=== PATIENT | female | born 1985 | race Caucasian/White ===

== ENCOUNTER 2019-09-05 14:11 | Emergency (ER) | payer BC, MEDICAID, SELFPAY ==
[2019-09-05 14:13] VITALS: BP 141/84; PULSE 104; RESP 16; TEMP 36.9; O2SAT 99; BMI 26.8
--- NOTE | 2019-09-05 14:30 | RAD_ITS ---
STUDY: X-RAY - LUMBAR SPINE REASON FOR EXAM: Female, 33 years old. NO INJURY, PT STATED THAT BACK LOCKED AND NOW IS VERY PAINFUL TECHNIQUE: AP and lateral view(s) of the lumbar spine were obtained. COMPARISON: None FINDINGS: Normal lumbar lordosis. There is no substantial scoliosis. Grade 1 anterior listhesis of L5 on S1 with spondylolysis. Normal vertebral bodies and endplates. Normal disc space heights. The soft tissue structures are unremarkable. RAD/Lumbar Spine 2 or 3 Views IMPRESSION: Grade 1 anterior listhesis of L5 on S1 with spondylolysis. Electronically Signed: Minesh Gonzales, at 15:08 EST , Service support ,
[2019-09-05] MEDS: Morphine 4 MG/ML Syringe IM (14:51)
--- NOTE | 2019-09-05 15:45 | ED.DCSUM_ITS ---
- ER Visit Summary Date of Service: 09/05/19 Chief Complaint: Back pain History of Present Illness: The patient is a 33 F who presents with back pain that began 2 days ago. Patient states she was bending forward and felt something pull in her low back. Patient states the pain is worse with movement and with bending. Patient describes the pain is sharp. Patient denies any radiation of the pain. Patient denies any paresthesias or weakness. Patient denies any bowel or bladder changes. Patient denies any saddle anesthesia. Patient states nothing makes the pain better. Physical Examination: Vital signs are stable. Patient is afebrile. Patient is in no acute distress. Musculoskeletal exam reveals tenderness and spasm of the lumbar paraspinal muscles. There is mild midline tenderness. There is no bony crepitance or step-off. There is no edema or ecchymosis. Range of motion was limited in all motions of the lumbar spine secondary to pain. Strength is 5/5 bilaterally in the lower extremities. There are no sensory deficits noted. Deep tendon reflexes are 2/4 bilaterally in the lower extremities. Test Results: X-rays of the lumbar spine were obtained. There is a grade 1 spondylolisthesis at L5-S1. This was interpreted by the radiologist and myself. Emergency Department Course and Treatment: Patient was given injection of morphine here. Patient was given prescriptions for Naprosyn and Flexeril. Patient was also given a prescription for a short course of Malcolm. Patient was instructed to use ice to the area. Patient was instructed to follow-up with her primary care physician in 5 to 7 days. Patient understood and was agreeable with the plan. All questions were answered. Disposition: Discharge home Impression: Lumbosacral strain This note was generated with [employer] dictation software. It may contain incorrect words, spelling, and punctuation that were not noted in review of the chart prior to signing ED Disposition - Plan for ED Patient: Disposition: Home or Assisted Living Diagnosis: Lumbosacral strain Instructions: Back Sprain/Strain Prescriptions: cycloBENZAPRine HCl [Flexeril] 10 mg PO QHS PRN PRN #10 tab PRN Reason: Muscle Spasm Prescription Printed Naproxen [Naprosyn] 500 mg PO BID PRN #20 tab Prescription Printed Hydrocodone Bitart/Apap 5-325 [Malcolm 5MG-325MG] 1 tab PO Q6H PRN PRN 3 Days #10 tab PRN Reason: Pain Prescription Printed Referrals: Comfort Winslow, HOUSE MOVER SUPERVISOR-C [Primary Care Provider] - 5-7 Days
[2019-09-05 16:19] VITALS: BP 113/84; PULSE 78; RESP 18; O2SAT 98
== END 2019-09-05 16:20 | disposition home or self-care (01) ==
PROVIDERS: Emergency Provider Emergency Medicine; PCP Nurse Practitioner Primary Care
DX: S39.012A Strain of muscle, fascia and tendon of lower back, initial encounter (principal); M43.17 Spondylolisthesis, lumbosacral region; X50.1XXA Overexertion from prolonged static or awkward postures, initial encounter; Y93.9 Activity, unspecified; Y92.9 Unspecified place or not applicable
CPT/HCPCS: 72100; 96372; 99283

== ENCOUNTER → 2020-03-03 | Outpatient (CLI) | payer MEDICAID, SELFPAY ==
[2020-03-03 11:47] VITALS: BMI 26.8
[2020-03-03 14:55] LABS: Amphetamine Urine VISTA NEGATIVE (<1000 ng/mL); Barbiturate Urine VISTA NEGATIVE (< 200 ng/mL); Benzodiazepine Urine VISTA NEGATIVE (< 200 ng/mL); Cocaine Urine VISTA NEGATIVE (< 300 ng/mL); Ecstacy Urine VISTA NEGATIVE (< 500 ng/mL); Methadone Urine VISTA NEGATIVE (< 300 ng/mL); PCP Urine VISTA NEGATIVE (< 25 ng/mL); THC Urine VISTA NEGATIVE (< 50 ng/mL); Vista UDS pH Range 6
[2020-03-05 03:06] LABS: Chlamydia By Nucleic Acid AMP Negative (Negative)
[2020-03-05 04:40] LABS: Gonococcus By Nucleic Acid AMP Negative (Negative)
[2020-03-05 17:41] LABS: HPV APTIMA, High Risk Negative (Negative)
== END | disposition home or self-care (01) ==
LOC: LABSPEC 13:54
PROVIDERS: PCP Nurse Practitioner Primary Care; Referring Provider Obstetrics & Gynecology; Visit Provider Obstetrics & Gynecology
DX: Z34.90 Encounter for supervision of normal pregnancy, unspecified, unspecified trimester (principal); Z12.4 Encounter for screening for malignant neoplasm of cervix
CPT/HCPCS: 80307; 87086; 87088; 87491; 87591; 87624; 88175; G0145

== ENCOUNTER → 2020-05-03 | Outpatient (CLI) | payer MEDICAID, SELFPAY ==
[2020-05-03 11:29] VITALS: BMI 26.8
== END | disposition home or self-care (01) ==
LOC: LABSPEC 12:45
PROVIDERS: PCP Nurse Practitioner Primary Care; Visit Provider Nurse Practitioner Women's Health
DX: O09.90 Supervision of high risk pregnancy, unspecified, unspecified trimester (principal); Z3A.00 Weeks of gestation of pregnancy not specified
CPT/HCPCS: 87086; 87088

== ENCOUNTER → 2020-05-05 12:12 | Outpatient (CLI) | payer MEDICAID, SELFPAY ==
[2020-05-03 11:29] VITALS: BMI 26.8
--- NOTE | 2020-05-05 12:43 | US_ITS ---
STUDY: SECOND AND THIRD TRIMESTER OBSTETRICAL ULTRASOUND - LIMITED REASON FOR EXAM: Female, 34 years old PREVIOUS SPOTTING X 2 DAYS -- NO SPOTTING TODAY -- WELL BEING LMP: 01/04/2020. PRIOR ULTRASOUND: None. TECHNIQUE: Transvaginal TECHNICAL QUALITY: Adequate. FINDINGS: There is a single intrauterine fetus. The fetus is in a breech presentation. There is demonstrated cardiac activity with a heart rate of 158 bpm. There is a normal amniotic fluid volume. The largest amniotic fluid pocket measures 3.1 cm x 4.2 cm. The amniotic fluid index (HALINA) is normal. The placenta is anterior in location and is not low lying. There are Grade 0 placental changes. The cervix measures 3.7 cm in length. BIOMETRY: BPD: 3.81 cm: 70 weeks, 4 days HC: 14.31 cm: 17 weeks, 3 days AC: 12.13 cm: 70 weeks, 5 days FL: 2.47 cm: 70 weeks, 3 days Age by LMP: 17 weeks, 3 days. OMKAR by LMP: 10/11/2019. age by current US: 17 weeks, 3 days. OMKAR by current US: 10/10/2020. Estimated weight: 203 grams, +/- 31 grams, 56 percentile. US/OB Limited With Biometrics IMPRESSION: Single live intrauterine gestation with a mean gestational age of 17 weeks and 3 days Electronically Signed: Minesh Gonzales, at 14:33 EDT , Service support ,
== END ==
PROVIDERS: PCP Nurse Practitioner Primary Care; Referring Provider Nurse Practitioner Women's Health; Visit Provider Nurse Practitioner Women's Health
DX: O20.9 Hemorrhage in early pregnancy, unspecified (principal); Z3A.00 Weeks of gestation of pregnancy not specified
CPT/HCPCS: 76816; 76817

== ENCOUNTER → 2020-05-12 14:43 | Outpatient (CLI) | payer MEDICAID, SELFPAY ==
[2020-05-03 11:29] VITALS: BMI 26.8
[2020-05-12 15:43] LABS: Absolute Lymphocyte Count 2.01 X10^3/uL (0.83-4.51); Absolute Neutrophil Count 7.4 X10^3/uL (2.0-7.7); Basophil# 0.02 X10^3/uL; Basophil% 0.2 % (0-1); Eosinophil# 0.12 X10^3/uL; Eosinophils% 1.2 % (0-5); Hematocrit 38.1 % (37-47); Hemoglobin 12.1 g/dL (12.0-15.0); Lymphocyte # 2.01 X10^3/ul (4.0); Lymphocyte % 19.6 % (19-41); Mean Corp Hgb Conc 31.8 g/dL (32-36); Mean Corpuscular Hgb 31.7 pg (27.0-32.0); Mean Corpuscular Volume 99.7 fL (81-99); Monocyte# 0.67 X10^3/uL; Monocyte% 6.5 % (0-10); NRBC Flagged by Analyzer 0 % (0-5); Neutrophil % 71.9 % (47-70); Platelet Count 398 K/mm3 (150-450); RBC Distribution Width SD 47.2 fl (35.1-43.9); Red Blood Count 3.82 M/mm3 (4.2-5.4); White Blood Count 10.3 K/mm3 (4.4-11.0)
[2020-05-13 03:03] LABS: Rapid Plasmin Reagin (RPR) NONREACTIVE (NONREACTIVE)
[2020-05-13 10:00] LABS: HIV - WCH Non-Reactive (Nonreactive); Hepatitis B Surface Antigen Non-Reactive (Nonreactive); Hepatitis C Antibody Non-Reactive (Nonreactive); Rubella IgG 113.7 IU/mL
== END ==
PROVIDERS: PCP Nurse Practitioner Primary Care; Referring Provider Obstetrics & Gynecology; Visit Provider Obstetrics & Gynecology
DX: Z34.90 Encounter for supervision of normal pregnancy, unspecified, unspecified trimester (principal)
CPT/HCPCS: 36415; 85025; 86592; 86703; 86762; 86803; 86850; 86900; 86901; 87340

== ENCOUNTER → 2020-06-02 13:48 | Outpatient (CLI) | payer MEDICAID, SELFPAY ==
[2020-05-31 10:53] VITALS: BMI 26.4
--- NOTE | 2020-06-02 13:49 | US_ITS ---
STUDY: SECOND AND THIRD TRIMESTER OBSTETRICAL ULTRASOUND REASON FOR EXAM: Female, 34 years old anatomy LMP: 01/04/2020. TECHNIQUE: Transabdominal TECHNICAL QUALITY: Adequate. PRIOR ULTRASOUND: Comparison is made with prior examination dated 05/05/2020. FINDINGS: There is a single intrauterine fetus. The fetus is in a cephalic presentation. There is demonstrated cardiac activity with a heart rate of 147 bpm. There is a normal amniotic fluid volume. The largest amniotic fluid pocket measures 7.5 cm x 4.6 cm. The amniotic fluid index (HALINA) is within normal limits. The placenta is anterior in location and is not low lying. There are Grade 0 placental changes. The cervix measures 3.8 cm in length. The bilateral adnexal regions are normal. BIOMETRY: BPD: 5.16 cm: 21 weeks, 4 days HC: 19.18 cm: 21 weeks, 3 days AC: 17.4 cm: 22 weeks, 2 days FL: 3.61 cm: 21 weeks, 3 days CI: 79% FL/BPD: 70% FL/HC: FL/AC: 21% HC/AC: 1.1 age by current US: 21 weeks, 4 days. OMKAR by current US: 10/09/2020. Estimated weight: 458 grams, +/- 68 grams, 59 %. age by prior US: 21 weeks, 3 days. OMKAR by prior US: 10/10/2020. Age by LMP: 21 weeks, 3 days. OMKAR by LMP: 10/11/1999. ANATOMY: Gender: Male Cranium: Normal lateral ventricles. Normal choroid plexus. Normal cerebellum. Normal cisterna magna. Normal face, nose and lips. Chest: Normal 4-chamber heart. Abdomen/Pelvis: Normal diaphragm. Normal stomach. Normal abdominal wall. Normal cord insertion. Normal 3 vessel cord. Normal kidneys. Normal bladder. Spine: Normal cervical spine. Normal thoracic spine. Normal lumbar spine. Normal sacrum. Extremities: Normal bilateral upper extremities. Normal bilateral lower extremities. US/OB Anatomy Scan IMPRESSION: Single live intrauterine gestation with a mean gestational age of 21 weeks and 3 days. The measurements obtained today fall within the normal expected range. Electronically Signed: Minesh Gonzales, at 15:22 EST , Service support ,
== END ==
PROVIDERS: PCP Nurse Practitioner Primary Care; Referring Provider Nurse Practitioner Women's Health; Visit Provider Nurse Practitioner Women's Health
DX: Z34.90 Encounter for supervision of normal pregnancy, unspecified, unspecified trimester (principal)
CPT/HCPCS: 76805

== ENCOUNTER → 2020-07-26 10:51 | Outpatient (CLI) | payer MEDICAID, SELFPAY ==
[2020-06-28 11:43] VITALS: BMI 26.6
[2020-07-26 11:25] LABS: Absolute Lymphocyte Count 2.01 X10^3/uL (0.83-4.51); Absolute Neutrophil Count 5.7 X10^3/uL (2.0-7.7); Basophil# 0.03 X10^3/uL; Basophil% 0.4 % (0-1); Eosinophil# 0.21 X10^3/uL; Eosinophils% 2.5 % (0-5); Hematocrit 33.5 % (37-47); Hemoglobin 10.8 g/dL (12.0-15.0); Lymphocyte # 2.01 X10^3/ul (4.0); Lymphocyte % 23.5 % (19-41); Mean Corp Hgb Conc 32.2 g/dL (32-36); Mean Corpuscular Hgb 31.3 pg (27.0-32.0); Mean Corpuscular Volume 97.1 fL (81-99); Monocyte# 0.59 X10^3/uL; Monocyte% 6.9 % (0-10); NRBC Flagged by Analyzer 0 % (0-5); Neutrophil # 5.65 X10^3/uL (2.7-7.7); Neutrophil % 65.8 % (47-70); Platelet Count 285 K/mm3 (150-450); RBC Distribution Width CV 13.9 % (11.6-14.6); RBC Distribution Width SD 48.8 fl (35.1-43.9); Red Blood Count 3.45 M/mm3 (4.2-5.4); White Blood Count 8.6 K/mm3 (4.4-11.0)
[2020-07-26 11:51] LABS: Glucose Challenge Gest 1H 50g 96 mg/dL (70-140)
== END ==
PROVIDERS: PCP Nurse Practitioner Primary Care; Referring Provider Obstetrics & Gynecology; Visit Provider Obstetrics & Gynecology
DX: O09.90 Supervision of high risk pregnancy, unspecified, unspecified trimester (principal); Z13.1 Encounter for screening for diabetes mellitus; Z3A.00 Weeks of gestation of pregnancy not specified
CPT/HCPCS: 36415; 82950; 85025

== ENCOUNTER → 2020-09-20 | Outpatient (CLI) | payer MEDICAID, SELFPAY ==
[2020-09-20 11:52] VITALS: BMI 27.4
== END | disposition home or self-care (01) ==
LOC: LABSPEC 16:35
PROVIDERS: PCP Nurse Practitioner Primary Care; Referring Provider Obstetrics & Gynecology; Visit Provider Obstetrics & Gynecology
DX: Z34.90 Encounter for supervision of normal pregnancy, unspecified, unspecified trimester (principal)
CPT/HCPCS: 87081

== ENCOUNTER → 2020-09-28 11:55 | Outpatient (CLI) | payer MEDICAID, SELFPAY ==
[2020-09-27 11:35] VITALS: BMI 27.4
--- NOTE | 2020-09-28 11:58 | US_ITS ---
STUDY: SECOND AND THIRD TRIMESTER OBSTETRICAL ULTRASOUND - LIMITED REASON FOR EXAM: Female, 34 years old uterine date size discrepancy LMP: 01/04/2020 PRIOR ULTRASOUND: 06/02/2020 TECHNIQUE: Transabdominal TECHNICAL QUALITY: Adequate. FINDINGS: There is a single intrauterine fetus. The fetus is in a cephalic presentation. There is demonstrated cardiac activity with a heart rate of 140 bpm. There is a normal amniotic fluid volume. The largest amniotic fluid pocket measures 4.05 cm. The amniotic fluid index (HALINA) is 12.66 cm. The placenta is anterior in location and is not low lying. There are Grade 2 placental changes. The cervix was not measured BIOMETRY: BPD: 9.31 cm: 37 weeks, 6 days HC: 33.79 cm: 38 weeks, 5 days AC: 35.66 cm: 39 weeks, 4 days FL: 7.37 cm: 37 weeks, 4 days Age by LMP: 38 weeks, 2 days. OMKAR by LMP: 10/10/2020. age by prior US: 38 weeks, 3 days. OMKAR by prior US: 10/09/2020. age by current US: 38 weeks, 1 days. OMKAR by current US: 10/11/2020. Estimated weight: 3644 grams, +/- 547 grams, 78.93 percentile. US/OB Limited With Biometrics IMPRESSION: Single live intrauterine at 38 weeks, 1 day by current ultrasound OMKAR of 10/11/2020. Heart rate at 140 bpm. No suspicious sonographic findings, there has been normal growth noted since the previous study. However, the patient did not fill her bladder and the relationship between the placenta tip and the cervix was not able to be evaluated on this study. If this remains a strong clinical concern, recommend repeat study at no charge to the patient with a full bladder Electronically Signed: Memo Rodriguez MD at 16:23 EST , Service support ,
== END ==
PROVIDERS: PCP Nurse Practitioner Primary Care; Referring Provider Obstetrics & Gynecology; Visit Provider Obstetrics & Gynecology
DX: O26.849 Uterine size-date discrepancy, unspecified trimester (principal); Z3A.00 Weeks of gestation of pregnancy not specified
CPT/HCPCS: 76816

== ENCOUNTER 2020-09-29 09:50 | Inpatient (IN) | payer MEDICAID, SELFPAY ==
[2020-09-27 11:35] VITALS: BMI 27.4
[2020-09-29] VITALS (61 sets, daily range): BP systolic 107–184; BP diastolic 56–152; PULSE 90–133; RESP 16; TEMP 36.3–37.3; O2SAT 89–100; BMI 27.4
[2020-09-29] MEDS: Lactated Ringers 1,000 ML 50 ML IV (10:11)
[2020-09-29 10:29] LABS: Absolute Lymphocyte Count 2.07 X10^3/uL (0.83-4.51); Absolute Neutrophil Count 8.8 X10^3/uL (2.0-7.7); Basophil# 0.04 X10^3/uL; Basophil% 0.3 % (0-1); Eosinophil# 0.11 X10^3/uL; Eosinophils% 0.9 % (0-5); Hematocrit 35.1 % (37-47); Hemoglobin 11.3 g/dL (12.0-15.0); Lymphocyte # 2.07 X10^3/ul (4.0); Lymphocyte % 17.1 % (19-41); Mean Corp Hgb Conc 32.2 g/dL (32-36); Mean Corpuscular Volume 90.2 fL (81-99); Monocyte# 0.92 X10^3/uL; Monocyte% 7.6 % (0-10); NRBC Flagged by Analyzer 0 % (0-5); Neutrophil # 8.81 X10^3/uL (2.7-7.7); Neutrophil % 72.7 % (47-70); Platelet Count 274 K/mm3 (150-450); RBC Distribution Width CV 14.2 % (11.6-14.6); Red Blood Count 3.89 M/mm3 (4.2-5.4); White Blood Count 12.1 K/mm3 (4.4-11.0)
--- NOTE | 2020-09-29 17:14 | PCM.HPOB.BLA ---
- Problem List (1) Active labor Status: Acute (2) 37 weeks gestation of Status: Acute Comment: electronic covid test ordered 09/24/20 (scheduled for 10/04/20 at 1340) (3) Anemia affecting Status: Acute Qualifiers: Comment: iron added (4) Anxiety with depression Status: Acute Comment: counseling encouraged. (5) History of maternal fourth degree perineal laceration, currently Status: Acute Comment: vaginal deliveries afterwards. (6) Status: Acute Qualifiers: Comment: genetic, carrier, and ntd screening declined. NL anatomy (7) Supervision of high-risk Status: Acute Qualifiers: Comment: PRR OMKAR 10/10/20 Boy López, Yang Headley, Jose Cruz Avtar (8) Uterine size date discrepancy Status: Acute Comment: growth us ordered History and Physical Date of Admission: 09/29/20 Intake Vital Signs 09/27/20 Height 6 ft 1 in 09/27/20 Weight: 208 lb 09/27/20 BMI 27.4 09/27/20 BP 134/86 H Intake Visit Reasons: 38WK OB Chief Complaint: est ob Supervisor Dairy Sanitation Required: No Is patient in pain?: No Allergies latex Allergy (Verified 09/27/20 11:35) Hives Penicillins Allergy (Verified 09/27/20 11:35) Hives clarithromycin [From Biaxin] Adverse Reaction (Verified 09/27/20 11:35) Other Medications B-complex with vitamin C 1 tab PO DAILY 03/03/20 [History Confirmed 09/27/20] vitamin#30 30 mg iron-10 mg iron-folic acid 1 mg-omg3 capsule cap PO 03/03/20 [History Confirmed 09/27/20] metoclopramide HCl 10 mg tablet 10 mg PO Q6H PRN #60 tab 05/03/20 [Rx Confirmed 09/27/20] cyclobenzaprine 10 mg tablet 10 mg PO TID PRN #30 tab 08/23/20 [Rx Confirmed 09/27/20] Last Menstral Period: 01/04/20 Zika: Zika virus screening: Negative : No PFSH PFSH Medical History Anxiety (Acute) Depression (Acute) Surgical History H/O rotator cuff surgery (Acute) History of wisdom tooth extraction, class II edentulism (Acute) Hx of appendectomy (Acute) Family History Father Diabetes Heart disease Hypertension Hyperlipidemia Social History (Updated 09/27/20 @ 15:[address] 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 Date Name GA/Weeks Outcome Route Bth Weight Infant Gen Labor Lgth Anesthesia Del Locatn Provider FOB Unknown 2009 Earl 40 live - full term 8lbs 6oz Male 18 epidural [facility] Doroteo Unknown 2015 Yang 38 live - full term 8lbs 11oz Male 19 none [facility] Seals Unknown 2018 Devonte 36 live - 6lbs 1oz Male 16 none [facility] Delivery Date: 4th degree perineal laceration Snell,Sonia Delivery Date: induction at 38w large for gestational age, stalled at 8cm Snell,Sonia Delivery Date: PPROM at 36w, transverse Snell,Sonia HPI 38WK OB : Details: MELANIE BLAIR is a 34 year old who presents for routine OB visit. OB Visit OMKAR Calculator Estimated Delivery Date Method Current WG Current Estimate 10/10/20 LMP (Certain) 38w 1d Expected Delivery Route/Plan Labor Preferences- CB/BF classes: [] labor support person: [] labor intervention preferences: [] pain management options preferred: [] cut cord/dad catch: [] : [] PP control planned: [] discussed possible routes of delivery and associated risks: [] special requests: [] Specific Issue/Plans flu vaccine: declined tdap vaccine: considering rhogam: [] LARC form signed: Problem list reviewed and updated with the most current plan of care details and appropriate orders placed. Relevant counseling for the gestational age provided. Continue routine care and follow up unless otherwise noted in visit notes/problem list details Initial Weight: Not Recorded Date EGA Weight BP Urine Prot Glucose FHR FuHt Pres Dilation Effaced St Visit Note 03/03/20 8w 3d 175 SM- CRL 2 cm cons with lmp 04/05/20 13w 1d 197 lb 124/62 160 SM- some spotting no cramping, thinking about flu vaccine 05/03/20 17w 1d 195 lb 2 oz 124/68 Negative Negative 156 MH-spotting off and on, brown in color. No Fm yet. Nausea persists. Zofran not helpful. Needs PN labs-will get today with repeat urine culture. Rx reglan. US this week for bleeding and then anatomy US 19-20wk 05/31/20 21w 1d 200 lb 118/81 Negative Negative 145 SM- no vb lof cramping, fu us scheduled 06/28/20 25w 1d 202 lb 8 oz 138/82 125 GP - no cramping, leaking, bleeding. Having boy #4! Anatomy normal. 07/26/20 29w 1d 204 lb 136/72 Negative Negative 150 29 SM- no vb lof good fm n oregular ctx will wait on 08/23/20 33w 1d 207 lb 110/70 150 33 SM- no vb lof good fm no regular ctx 09/06/20 35w 1d 205 lb 122/76 Negative Negative 150 35 GP - no LOF, VB, DFM, ctx. Doing well 09/20/20 37w 1d 208 lb 124/80 140 35 SM- no vb lof good but decreased fm no reuglar ctx will get nst now and growth us 09/27/20 38w 1d 208 lb 134/86 140 35 Cephalic 4 70 0 SM- no vb lof good fm no reuglar ctx ordered growht us, membranes swept Diagnostics Diagnostics Diagnostics Blood Type A POSITIVE 05/12/20 Antibody Screen NEGATIVE 05/12/20 Glucose 1 Hr 50 gm 96 mg/dL (70-140) 07/26/20 HIV 1&2 Antibody Non-Reactive (Nonreactive) 05/12/20 Rubella IgG Antibody 113.7 IU/mL 05/12/20 Hgb 10.8 g/dL (12.0-15.0) L 07/26/20 Hct 33.5 % (37-47) L 07/26/20 RPR NONREACTIVE (NONREACTIVE) 05/12/20 Details: HIV: Urine Culture: Sequential Screen: NIPT Screen: ROS Const Reports system reviewed and no additional complaints, except as docu Card Reports system reviewed and no additional complaints, except as docu Resp Reports system reviewed and no additional complaints, except as docu GI Reports system reviewed and no additional complaints, except as docu, Reports nausea Reports system reviewed and no additional complaints, except as docu Musc Reports system reviewed and no additional complaints, except as docu Exam Const General: cooperative, healthy appearing, comfortable, anxious HENMT Head: normal to inspection Nose: external nose normal Face and sinus: normal facial exam Neck Neck: normal visual inspection, full ROM, no lymphadenopathy Thyroid: thyroid normal Chest Chest palpation & inspection: normal inspection of the chest Resp Effort & Inspection: normal respiratory effort GI Inspection: normal to inspection Palpation: soft, other (gravid uterus) Other: vertex and appropriate size for gestational age Other: Cervical Exam: Extrem General: pedal edema Assessment & Plan Problems 1. Supervision of high-risk O09.90 PRR OMKAR 10/10/20 JULISSA Garvey Cameron, Jose Cruz Avtar 2. Z34.90 genetic, carrier, and ntd screening declined. NL anatomy 3. Anxiety with depression F41.8 counseling encouraged. 4. History of maternal fourth degree perineal laceration, currently O09.299 vaginal deliveries afterwards. 5. Anemia affecting O99.019 iron added 6. Uterine size date discrepancy O26.849 growth us ordered 7. 37 weeks gestation of Z3A.37 electronic covid test ordered 09/24/20 (scheduled for 10/04/20 at 1340) UPDATE- I have seen the patient and performed any clinically relevant updates to the history and physical exam. Emelyn Knight MD
[2020-09-29] MEDS: Lactated Ringers 500 ML 999 ML IV (17:26)
[2020-09-29] MEDS: Ondansetron 4 MG/2 ML Vial IV (17:52)
--- NOTE | 2020-09-29 18:02 | PCM.OPRPT ---
Problem List (1) Active labor Status: Acute (2) 37 weeks gestation of Status: Acute Comment: electronic covid test ordered 09/24/20 (scheduled for 10/04/20 at 1340) (3) Anemia affecting Status: Acute Qualifiers: Comment: iron added (4) Anxiety with depression Status: Acute Comment: counseling encouraged. (5) History of maternal fourth degree perineal laceration, currently Status: Acute Comment: vaginal deliveries afterwards. (6) Status: Acute Qualifiers: Comment: genetic, carrier, and ntd screening declined. NL anatomy (7) Supervision of high-risk Status: Acute Qualifiers: Comment: PRR OMKAR 10/10/20 Boy López, Yang Headley Dakota Avtar (8) Uterine size date discrepancy Status: Acute Comment: growth us ordered Vaginal Delivery Maternal Presentation: Active Labor 34-year-old at 38 weeks gestation admitted in active labor. Patient made cervical change to complete dilation without augmentation. Amniotic Membrane Rupture Type: Artificial Amniotic Fluid Description: Clear Final OMKAR: 10/10/20 Gestational age: 38 Weeks and 3 Days Date of Procedure: 09/29/20 Pre-Operative Diagnosis: Term , active labor Post-Operative Diagnosis: Same Surgery/ Procedure Performed: Spontaneous Vaginal Delivery Type of Anesthesia: Epidural Description of Procedure: Patient began pushing and delivered the head in the NIA presentation. The head was delivered atraumatically and no nuchal cord was noted. The anterior and posterior shoulders delivered without complication followed by the rest of the and the infant was placed on the maternal abdomen. Delayed cord clamping was employed for approximately 60 seconds. Cord was clamped and cut and gentle traction was applied to the cord and the placenta delivered spontaneously immediately following it was noted to be intact with three-vessel cord. The perineum and vagina were inspected and a midline second-degree perineal laceration was noted and repaired in the standard fashion using 3-0 Vicryl rapide suture. Uterine atony was noted and was treated with Methergine and Hemabate as well as bimanual uterine massage. Following uterotonic's, uterine tone was noted to improve significantly. EBL was 300 cc. Patient and infant tolerated delivery well. Presentation: Vertex, NIA Placental Delivery Description: Spontaneous Placenta Disposition: [facility] Cord Vessel Description: 3 Vessels Cord Entanglement: None Estimated Blood Loss: 300 A gender: Male (1 minute): 8 (5 minute): 3 Episiotomy Description: None Laceration: Midline, Perineal Extension/lac, 2nd degree Medications given after delivery: IV Pitocin Complications: None Multi Select Codes - Urinary/Genital Urinary/Genital CPT Codes: 89638 Vaginal Delivery+ PP Care([facility])
[2020-09-29] MEDS: fentaNYL-bupivacaine (epidural) 100 ML BAG EPIDURAL (18:38)
[2020-09-29] MEDS: Oxytocin 30 units/NS 500 ml 30 UNITS/500 ML IV.SOLN 334 UNITS IV (20:08)
[2020-09-29] MEDS: Methylergonovine 0.2 MG/ML Ampul IM (20:11)
[2020-09-29] MEDS: Carboprost Tromethamine 250 MCG/ML Ampul IM (20:13)
--- NOTE | 2020-09-29 20:28 | DCINST_ITS ---
Discharge Diet: No Restrictions Discharge Activity: Return to Normal Activity, May not drive while taking narcotic pain medications., May Shower May resume sexual activity in: 4-6 weeks Additional Activity Instructions:: Nothing in the vagina for 4-6 weeks. You may return to work/school in 6 weeks. Call your doctor if your incision/area has: Continuous Slow Oozing, Sudden Increased Bleeding, Increased Pain/ Swelling, Increased Redness, Foul Smelling Discharge Additional Instructions: If you experience any of the following, contact your healthcare provider. * Bleeding that soaks a pad every hour for 2 hours * Fever 100.4 or higher * Unrelieved incision or abdominal pain * Swelling, redness, discharge or bleeding from your incision or episiotomy site * Your incision begins to separate * Problems urinating (including inability to urinate or burning while urinating). * Visual changes * Severe headache * Flu-like symptoms * Pain or redness in one of both of your breasts * Pain, warmth, tenderness or swelling in your legs, especially the calf area * Frequent nausea and vomiting * Symptoms of depression or anxiety If you experience any of the following, call 911 or go to the nearest Emergency Room. * Chest pain * Problems breathing * Seizure activity * Partial or complete paralysis of a body part, slurred speech, weakness or drooping of the face, or a sudden inability to walk or hold your balance Allergies/Adverse Reactions: Allergies latex Allergy (Severe, Verified 09/29/20 10:40) Hives Penicillins Allergy (Mild, Verified 09/29/20 10:40) Hives clarithromycin [From Biaxin] Adverse Reaction (Severe, Verified 09/29/20 10:40) Vomiting causes migraines Medications to take at Discharge B-complex with vitamin C 1 tab PO DAILY 03/03/20 vitamin#30 30 mg iron-10 mg iron-folic acid 1 mg-omg3 capsule 1 cap PO DAILY 03/03/20 metoclopramide HCl 10 mg tablet 10 mg PO Q6H PRN #60 tab 05/03/20 Iron Carbonyl [Feosol] 45 mg PO QHS PRN 09/29/20 Naproxen [Naprosyn] 250 - 500 mg PO Q8H PRN PRN #30 tab 09/29/20 The following prescriptions were given: Naproxen [Naprosyn] 250 - 500 mg PO Q8H PRN PRN #30 tab PRN Reason: MILD PAIN Transmission Status: Received by [facility] When: Call to make an appointment with your doctor in 6 weeks. If you had elevated Blood Pressure or 4th degree laceration you will need to be seen in 2 weeks. Primary Care Physician: Comfort Winslow NP, PROPELLANT ASSEMBLER-C [Primary Care Provider] - Test Results: Test results from this visit will be discussed in further detail at your follow- up appointment, if applicable.
[2020-09-29] MEDS: 0.9% Saline Lock 10 ML Syringe IV (22:50)
[2020-09-30 04:00] VITALS: BP 104/59; PULSE 95; RESP 16; TEMP 36.3
[2020-09-30 07:25] VITALS: BP 101/68; PULSE 90; RESP 14; TEMP 36.3
--- NOTE | 2020-09-30 07:28 | PCM.PN.OB ---
Patient Problems: Active and Suspected Problems (Last Reviewed 09/27/20 @ 11:35 by Sonia Snell) Active labor (Acute) 37 weeks gestation of (Acute) electronic covid test ordered 09/24/20 (scheduled for 10/04/20 at 1340) Uterine size date discrepancy (Acute) growth us ordered Anemia affecting (Acute) iron added History of maternal fourth degree perineal laceration, currently (Acute) vaginal deliveries afterwards. Anxiety with depression (Acute) counseling encouraged. (Acute) genetic, carrier, and ntd screening declined. NL anatomy Supervision of high-risk (Acute) PRR OMKAR 10/10/20 Meir López, Yang Headley, Jose Cruz Avtar Subjective: Patient doing well without complaints. Tolerating PO. Ambulating and voiding without difficulty. Breast feeding well. Denies chest pain, shortness of breath, calf pain/swelling, fevers, chills, lightheadedness. - Physical Exam Vitals/I&O's: Vital Signs Temp Pulse Resp BP Pulse Ox 97.4 F L 95 16 104/59 L 98 09/30/20 04:00 09/30/20 04:00 09/30/20 04:00 09/30/20 04:00 09/29/20 23:54 Oxygen Delivery Method Room Air Weight: 208 lb Body Mass Index (BMI) 27.4 Intake and Output for Last 24 Hours 09/28/20 09/29/20 09/30/20 23:59 23:59 23:59 Intake Total 1799.17 / 1799.17 Output Total 200 / 200 Balance 1599.17 / 1599.17 General: Alert, Oriented x3, Cooperative, No apparent distress, Well developed, Well nourished HEENT: Atraumatic, PERRLA, EOMI, Normocephalic Lungs: Normal air movement Cardiovascular: Regular rate Abdomen: Soft, Non Tender, Non-Distended, - - fundus firm Extremities: No edema, No Calf Tenderness Neurological: Cranial nerves II-XII grossly intact, Neuro grossly intact Psych/Mental Status: Normal Affect, Appropriate Microbiology Past 72 Hours 09/29/20 10:00 Mucosa - Nose SARS-CoV-2 Antigen (Rapid) - Final Laboratory Results 09/29/20 10:11: WBC 12.1 H, RBC 3.89 L, Hgb 11.3 L, Hct 35.1 L, MCV 90.2, MCH 29.0, MCHC 32.2, RDW Std Deviation 47.0 H, RDW Coeff of Isatu 14.2, Plt Count 274, MPV 10.0, Immature Gran % (Auto) 1.400 H, Neut % (Auto) 72.7 H, Lymph % (Auto) 17.1 L, [place] % (Auto) 7.6, Eos % (Auto) 0.9, Baso % (Auto) 0.3, Absolute Neuts (auto) 8.8 H, Absolute Lymphs (auto) 2.07, Nucleated RBC % 0 09/29/20 10:11: Blood Type A POSITIVE, Antibody Screen NEGATIVE Current Medications Acetaminophen (Acetaminophen 500 Mg Tablet) 1,000 mg PO Q8H PRN PRN PRN Reason: Pain Score 1-3 Bisacodyl (Bisacodyl 10 Mg Suppository) 10 mg RC UD PRN PRN Reason: If no BM Dibucaine (Dibucaine 30 Gm Tube) 1 applic TOPICAL TID PRN PRN; Protocol PRN Reason: Discomfort Hydrocortisone (Hydrocortisone 2.5% Crm) 1 applic TOPICAL TID PRN PRN; Protocol PRN Reason: Discomfort Methylergonovine Maleate (Methylergonovine 0.2 Mg/Ml Ampul) 0.2 mg IM X1 PRN PRN Reason: Excess bleeding/uterine atony Last Admin: 09/29/20 20:11 Dose: 0.2 mg Documented by: Naproxen (Naproxen 250 Mg Tablet) 500 mg PO Q8H PRN PRN PRN Reason: Pain Score 1-3 Ondansetron HCl (Ondansetron 4 Mg/2 Ml Vial) 4 mg IV Q4H PRN PRN PRN Reason: Nausea Oxycodone HCl (Oxycodone 5 Mg Tablet) 5 - 10 mg PO Q4H PRN PRN PRN Reason: Pain Score 4-10 Senna/Docusate Sodium (Senna/Docusate Sodium 1 Tablet) 1 - 2 tablet PO DAILY PRN PRN PRN Reason: Constipation Simethicone (Simethicone 80 Mg Tablet) 80 mg PO PCHS PRN PRN Reason: Indigestion/Stomach pain Sodium Chloride (0.9% Saline Lock 10 Ml Syringe) 5 - 15 ml IV UD PRN PRN Reason: SALINE FLUSH Last Admin: 09/29/20 22:50 Dose: 10 ml Documented by: Medical Necessity - Tobacco Use Smoking Status: Former smoker Assessment/Plan All Active Problems (Last Reviewed 09/27/20 @ 11:35 by Sonia Snell) Active labor (Acute) 37 weeks gestation of (Acute) Uterine size date discrepancy (Acute) Anemia affecting (Acute) History of maternal fourth degree perineal laceration, currently (Acute) Anxiety with depression (Acute) (Acute) Supervision of high-risk (Acute) Bleeding in early (Resolved) Nausea/vomiting in (Resolved) s/p PPD # 1 1. routine post delivery care 2. breast feeding- support given 3. rh positive 4. rubella immune
--- NOTE | 2020-09-30 07:40 | NURSING ---
pt provided with Lasinoh cream
[2020-09-30 11:55] VITALS: BP 116/57; PULSE 97; RESP 16; TEMP 36.4
[2020-09-30] MEDS: Naproxen 250 MG Tablet 500 MG PO (15:41)
[2020-09-30 15:50] VITALS: BP 108/60; PULSE 96; RESP 14; TEMP 36.6
[2020-09-30 20:50] VITALS: BP 120/68; PULSE 95; RESP 16; TEMP 37.1; O2SAT 96
== END 2020-09-30 22:40 | disposition home or self-care (01) | DRG 560 ==
LOC: WPOUT 10:08 → WP 10:15
PROVIDERS: Admitting Provider Obstetrics & Gynecology; PCP Nurse Practitioner Primary Care; Referring Provider Obstetrics & Gynecology; Visit Provider Obstetrics & Gynecology
DX: O99.02 Anemia complicating childbirth (principal); O99.334 Smoking (tobacco) complicating childbirth; F17.290 Nicotine dependence, other tobacco product, uncomplicated; Z37.0 Single live birth; Z3A.38 38 weeks gestation of pregnancy; O62.2 Other uterine inertia; O70.1 Second degree perineal laceration during delivery; O26.849 Uterine size-date discrepancy, unspecified trimester
CPT/HCPCS: 59025; 59050; 76816; 85025; 86850; 86900; 86901; 87426; 99218; J7120; A4216; G0378; J2405

== ENCOUNTER → 2020-11-08 14:58 | Outpatient (CLI) | payer MEDICAID, SELFPAY ==
[2020-11-08 14:14] VITALS: BMI 27.1
--- NOTE | 2020-11-08 15:00 | VDLE_ITS ---
Reason For Study: Swelling RIGHT GSV is normal. CFV is compressible, spontaneous, phasic, competent and demonstrates normal augmentation. FV is compressible, spontaneous, phasic, competent and demonstrates normal augmentation. POP V is compressible, spontaneous, phasic, competent and demonstrates normal augmentation. T/P Trunk is compressible. PTV is compressible. RT PerV is compressible. Procedure This is a venous duplex using B-mode, color flow and spectral Doppler. Exam performed in department. A preliminary report was called and/or faxed to [place]. VL/Venous Duplex US, Unilateral Interpretation Summary There is no evidence of right lower extremity deep vein thrombosis. Right great saphenous vein appears patent and compressible segmentally. Ordering Physician: Emelyn Knight Performed By: Claudette Parker RVT
== END ==
PROVIDERS: Referring Provider Obstetrics & Gynecology; Visit Provider Obstetrics & Gynecology
DX: M25.471 Effusion, right ankle (principal)
CPT/HCPCS: 93971

== ENCOUNTER → 2021-05-09 | Outpatient (CLI) | payer BC, MEDICAID, SELFPAY | END | disposition home or self-care (01) | LOC: LABSPEC 11:37 | PROVIDERS: Referring Provider Nurse Practitioner Women's Health; Visit Provider Nurse Practitioner Women's Health | DX: R30.0 Dysuria (principal) | CPT/HCPCS: 87077; 87086; 87088; 87186 ==

== ENCOUNTER → 2021-06-02 10:16 | Outpatient (CLI) | payer BC, MEDICAID, SELFPAY ==
--- NOTE | 2021-06-02 10:22 | US_ITS ---
STUDY: RENAL ULTRASOUND - COMPLETE REASON FOR EXAM: Female, 35 years old. UTI,BACK PAIN,URGENCY TECHNIQUE: Ultrasound evaluation of the kidneys was performed with real-time and static aguirre-scale imaging. COMPARISON: None. FINDINGS: RIGHT KIDNEY: Normal location of the right kidney, which is normal in size. The right kidney measures 12 cm x 5.5 cm x 5.9 cm. There is a normal cortex of the right kidney. The renal cortex measures 1.8 cm. There is no right renal mass or cyst. There are no right renal calculi. There is no right hydronephrosis. DISTAL RIGHT URETER: There is non-visualization of the distal right ureter. There is no demonstrated right ureterovesical junction calculus. There is a visualized right ureteral jet. LEFT KIDNEY: Normal location of the left kidney, which is normal in size. The left kidney measures 11.4 cm x 4.5 cm x 5.8 cm. There is a normal cortex of the left kidney. The renal cortex measures 1.8 cm. There is no left renal mass or cyst. There are no left renal calculi. There is no left hydronephrosis. DISTAL LEFT URETER: There is non-visualization of the distal left ureter. There is no demonstrated left ureterovesical junction calculus. There is a visualized left ureteral jet. BLADDER: The distended urinary bladder has a volume of 211 ml. The empty urinary bladder has a volume of 29 ml. There is a normal wall thickness of the distended urinary bladder. There is no demonstrated mass within the urinary bladder. There are no demonstrated bladder calculi. US/Kidney and Bladder IMPRESSION: Normal ultrasound of the kidneys and urinary bladder. Electronically Signed: Minesh Gonzales MD at 14:32 EST , Service support ,
== END ==
PROVIDERS: Referring Provider Urology; Visit Provider Urology
DX: N39.0 Urinary tract infection, site not specified (principal); M54.50 Low back pain, unspecified; R39.15 Urgency of urination
CPT/HCPCS: 76770

== ENCOUNTER 2021-07-05 04:42 | Emergency (ER) | payer BC, MEDICAID, SELFPAY ==
[2021-07-05 04:43] VITALS: BP 133/83; PULSE 102; RESP 18; TEMP 36.9; O2SAT 97; BMI 25.4
[2021-07-05 04:47] VITALS: BP 126/78; PULSE 106; RESP 18; TEMP 36.9; O2SAT 99
--- NOTE | 2021-07-05 04:49 | RAD_ITS ---
STUDY: X-RAY CHEST REASON FOR EXAM: Female, 35 years old. Chest pain TECHNIQUE: Single AP portable view x2 of the chest. COMPARISON: February 28, 2017 chest x-ray FINDINGS: There is stable hyperinflation of the lungs. No visualized focal infiltrate. There is no demonstrated pleural abnormality. Normal size heart. Normal mediastinum and jose. Normal visualized pulmonary arteries. Normal visualized aortic arch and descending thoracic aorta. There are diffuse degenerative changes of the visualized thoracic spine. Normal visualized ribs, clavicles, and shoulders. There is no demonstrated abnormality of the visualized soft tissue structures of the upper abdomen. RAD/Chest 1 View (Portable) IMPRESSION: Hyperinflation of the lungs no visualized focal infiltrate. Electronically Signed: Yi Collazo MD at 5:34 EST Tel , Service support ,
--- NOTE | 2021-07-05 04:49 | EKG12_ITS ---
Test Reason : CP Blood Pressure : / mmHG Vent. Rate : 093 BPM Atrial Rate : 093 BPM P-R Int : 144 ms QRS Dur : 090 ms QT Int : 366 ms P-R-T Axes : 065 028 058 degrees QTc Int : 455 ms Normal sinus rhythm Normal ECG Confirmed by HARJEET BARKER, BEAR ([id number]), purchasing expeditor RENATO GALEANA ([id number]) on 07/06/2021 12:16:02 PM Referred By: PEMA Confirmed By:BEAR COSBY MD
[2021-07-05 05:00] LABS: Absolute Lymphocyte Count 3.01 X10^3/uL (0.83-4.51); Absolute Neutrophil Count 4.6 X10^3/uL (2.0-7.7); Basophil# 0.02 X10^3/uL; Basophil% 0.2 % (0-1); Eosinophil# 0.11 X10^3/uL; Eosinophils% 1.3 % (0-5); Hematocrit 32.2 % (37-47); Hemoglobin 9.8 g/dL (12.0-15.0); Lymphocyte # 3.01 X10^3/ul (0.83-4.51); Lymphocyte % 35.6 % (19-41); Mean Corp Hgb Conc 30.4 g/dL (32-36); Mean Corpuscular Hgb 29.3 pg (27.0-32.0); Mean Corpuscular Volume 96.1 fL (81-99); Mean Platelet Vol. 8.4 fl (6.2-12.0); Monocyte# 0.67 X10^3/uL; Monocyte% 7.9 % (0-10); NRBC Flagged by Analyzer 0 % (0-5); Neutrophil # 4.62 X10^3/uL (2.7-7.7); Neutrophil % 54.6 % (47-70); POSITIVE MORPHOLOGY YES; Platelet Count 440 K/mm3 (150-450); RBC Distribution Width CV 18.9 % (11.6-14.6); RBC Distribution Width SD 66.5 fl (35.1-43.9); Red Blood Count 3.35 M/mm3 (4.2-5.4); White Blood Count 8.5 K/mm3 (4.4-11.0)
[2021-07-05 05:17] LABS: Differential Indicated SCAN CRITERIA MET
[2021-07-05 05:19] LABS: Anisocytosis 3+
[2021-07-05 05:21] VITALS: BP 111/87; PULSE 90; RESP 16; O2SAT 98
[2021-07-05] MEDS: Ondansetron 4 MG/2 ML Vial IV (05:21)
--- NOTE | 2021-07-05 05:23 | ED.VIS.CHEST ---
HPI History of Present Illness Chief Complaint: Chest Pain Narrative Narrative: 35-year-old female presenting for nausea/vomiting. She states that he vomited twice over night. She denies fever, chills, shortness of breath. Patient is on day 10 of Covid and not having any respiratory symptoms other than she developed some burning in her chest earlier this evening and then had episodes of vomiting. She describes it as burning and center of her chest which radiates outward. She does not have abdominal pain. Patient does state that she has chronic dysuria and recurrent UTIs for which she is currently being treated for with Augmentin. She sees currently for this and has had ultrasounds of her kidneys, ureters, bladder. She is scheduled for CAT scan tomorrow without contrast. PFSH PFSH Medical History Anxiety Asthma Depression Home Medications B-complex with vitamin C 1 tab PO DAILY 03/03/20 [History Last Taken 09/28/20 21:00] vitamin#30 30 mg iron-10 mg iron-folic acid 1 mg-omg3 capsule 1 cap PO DAILY 03/03/20 [History Last Taken 09/28/20 20:00] iron, carbonyl 45 mg PO QHS PRN 09/29/20 [History Last Taken 09/28/20 21:00] Allergy/AdvReac Type Severity Reaction Status Date / Time latex Allergy Severe Hives Verified 07/05/21 04:48 Penicillins Allergy Mild Hives Verified 07/05/21 04:48 Sulfa (Sulfonamide Allergy Fever and Verified 07/05/21 04:48 Antibiotics) skin rash clarithromycin [From Biaxin] AdvReac Severe Vomiting Verified 07/05/21 04:48 Family History Father Diabetes Heart disease Hypertension Hyperlipidemia Surgical History H/O rotator cuff surgery History of wisdom tooth extraction, class II edentulism Hx of appendectomy Social History Smoking Status: Current every day smoker tobacco type: e-cigarettes Electronic Cigarette Use: with nicotine alcohol intake: never do you feel safe at home: Yes 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[employer], 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[employer] ROS ROS ED Constitutional Constitutional ED: Denies fever(s) Eyes Eyes: Denies none ENT ENT ED: Denies rhinorrhea or sore throat Cardiovascular Cardiovascular: Reports as per HPI Respiratory/Chest Respiratory/Chest: Denies cough or dyspnea Gastrointestinal Gastrointestinal: Reports nausea and vomiting; Denies abdominal pain Genitourinary Genitourinary ED: Reports dysuria and urinary frequency Musculoskeletal Musculoskeletal: Denies arthralgias or myalgias Integumentary Denies abscess or rash Neurologic Neurologic: Denies headache(s) or weakness Psychiatric Psychiatric: Denies anxiety or depression EXAM Physical Exam Const Vital Signs: 07/05/21 04:43 07/05/21 04:47 07/05/21 04:52 Temperature 98.4 F 98.4 F Temperature Source Oral Oral Pulse Rate 102 H 106 H Respiratory Rate 18 18 Respiratory Effort Normal Non-Labored Respiratory Pattern Normal Blood Pressure 133/83 H 126/78 H Blood Pressure Mean 99 94 Pulse Ox 97 99 Oxygen Delivery Method Room Air Room Air Room Air 07/05/21 05:21 07/05/21 05:50 07/05/21 06:20 Temperature 97.0 F L Temperature Source Temporal Pulse Rate 90 84 75 Respiratory Rate 16 16 16 Respiratory Effort Respiratory Pattern Blood Pressure 111/87 H 122/83 H 119/76 Blood Pressure Mean 95 96 90 Pulse Ox 98 100 100 Oxygen Delivery Method Room Air Room Air Room Air Positive well nourished General Appearance ED: NAD; Negative for pallor HEENT Reports moist mucous membranes normocephalic and atraumatic Eyes PERRL and EOMs intact bilaterally Chest Wall inspection of chest normal and palpation of chest normal Resp normal respiratory effort Effort and Inspection: respiratory distress Cardio regular rate and regular rhythm GI normal to inspection, nondistended, normoactive bowel sounds Back/Spine no CVA tenderness Neuro oriented x3 Sensorium / Orientation: awake and alert Psych mental status grossly normal Skin General Skin Exam: Negative for jaundice or pallor Heart Score History: Slightly/Non-Suspicious ECG: Normal Age: </= 45 years Risk Factors: No Risk Factors Troponin: </= Normal Limit Score: 0 MDM MDM MDM Narrative Medical decision making narrative: Patient presenting with burning in her chest and vomiting x2. Patient states that this started earlier this morning. EKG performed on my interpretation shows a normal sinus rhythm with a ventricular rate of 93 bpm without ischemic changes or signs of dysrhythmia. Will obtain cardiac work-up. Patient does not have any cardiac risk factors. No history of DVT/PE. Currently on day 10 of Covid but not having chest pressure or pleuritic chest pain. She only describes this as burning. She does not have a fever. Patient does state that she has recurrent UTIs. I did look into her work-up and apparently when she is on antibiotics her symptoms improve and then a couple of days after she is off of antibiotics she developed an infection again which has been going on for months. Patient is currently on Augmentin and is following with urology for this. She is scheduled to have a CT scan of the abdomen and pelvis tomorrow which I do not believe is necessary related to her symptoms today. She is not having any abdominal pain or flank pain. CBC does not show any leukocytosis. Hemoglobin is slightly low at 9.8 patient has a history of anemia. Platelets are normal. Renal function electrolytes are normal with exception of a potassium of 3.4. High-sensitivity troponin is less than 3 and states she has been having this burning all night I believe she rules out for cardiac. It does not sound cardiac in nature. Chest x-ray on my interpretation shows no acute cardiopulmonary process and the radiologist does agree. Although patient recently had Covid, her chest pain does not sound pleuritic or cardiac in nature. She describes burning as well as nausea and vomiting. Patient was given Zofran and she had improvement in her symptoms. I do not believe she needs a D-dimer or CTA of the chest. On reevaluation her heart rate is 75 bpm, respirate of 16, pulse ox 100% on room air, blood pressure 119/76. Discussed all findings with the patient. She will follow-up outpatient for the CT of the abdomen pelvis tomorrow for urology. Impression: 1. Chest pain noncardiac Lab Data Labs: Laboratory Results - last 24 hr 07/05/21 07/05/21 04:50 04:50 WBC 8.5 RBC 3.35 L Hgb 9.8 L Hct 32.2 L MCV 96.1 MCH 29.3 MCHC 30.4 L RDW Std Deviation 66.5 H RDW Coeff of Isatu 18.9 H Plt Count 440 MPV 8.4 Immature Gran % (Auto) 0.400 Neut % (Auto) 54.6 Lymph % (Auto) 35.6 [place] % (Auto) 7.9 Eos % (Auto) 1.3 Baso % (Auto) 0.2 Absolute Neuts (auto) 4.6 Absolute Lymphs (auto) 3.01 Nucleated RBC % 0 Anisocytosis 3+ Sodium 138 Potassium 3.4 L Chloride 104 Carbon Dioxide 27.0 Anion Gap 7 BUN 18 Creatinine 0.74 Estim Creat Clear Calc 127.51 Est GFR (MDRD) Af Amer 115 Est GFR (MDRD) Non-Af 95 BUN/Creatinine Ratio 24.3 H Glucose 123 H Calcium 9.2 Troponin I High Sens < 3 L Radiography Diagnostic Testing: Clinical Impression(s) from Imaging Studies Chest X-Ray 07/05/21 04:49 IMPRESSION: Hyperinflation of the lungs no visualized focal infiltrate. Electronically Signed: Yi Collazo MD at 5:34 EST Tel , Service support , Discharge Plan Triage Chief Complaint: Chest Pain ED Provider: Ric Sagastume Dx/Rx/DC Orders Instructions: ED Chest Pain, Noncardiac, ED Vomiting (Adult) Prescriptions: No Action vitamin#30 30 mg iron-10 mg iron-folic acid 1 mg-omg3 capsule 30 mg iron-10 mg iron-1 mg capsule 1 cap PO DAILY RF: 0 B-complex with vitamin C [Super B Complex-Vitamin C] Tablet 1 tab PO DAILY RF: 0 iron, carbonyl 45 MG capsule 45 mg PO QHS PRN RF: 0 Primary Care Provider: Care Physician,No Primary Referrals: Care Physician,No Primary [Primary Care Provider] - Disposition Disposition: Home, Self Care Discharge Date/Time: 07/05/21 06:20
[2021-07-05 05:29] LABS: Anion Gap 7 (5-15); BUN 18 mg/dL (7-18); BUN/Creat Ratio 24.3 RATIO (10-20); Calcium,Total 9.2 mg/dL (8.5-10.1); Chloride 104 mmol/L (98-107); Creatinine, Serum 0.74 mg/dL (0.55-1.02); EST Glomerular Filtration Rate 95 mL/min (>60); Est Glom Filt Rate - Afr Amer 115 mL/min (>60); Estimated Creatinine Clearance 127.51 ml/min; Glucose 123 mg/dL (74-106); Potassium 3.4 mmol/L (3.5-5.1); Sodium Level 138 mmol/L (136-145); Troponin-I HS < 3 pg/mL (3.0-54.0)
[2021-07-05 05:50] VITALS: BP 122/83; PULSE 84; RESP 16; TEMP 36.1; O2SAT 100
[2021-07-05 06:20] VITALS: BP 119/76; PULSE 75; RESP 16; O2SAT 100
== END 2021-07-05 06:20 | disposition home or self-care (01) ==
PROVIDERS: Emergency Provider Student in an Organized Health Care Education/Training Program
DX: R07.89 Other chest pain (principal); R11.2 Nausea with vomiting, unspecified; D64.9 Anemia, unspecified; J45.909 Unspecified asthma, uncomplicated; Z87.440 Personal history of urinary (tract) infections; F17.290 Nicotine dependence, other tobacco product, uncomplicated
CPT/HCPCS: 71045; 80048; 84484; 85025; 93005; 96374; 99284; A4216; J2405

== ENCOUNTER → 2021-07-06 16:40 | Outpatient (CLI) | payer BC, MEDICAID, SELFPAY ==
--- NOTE | 2021-07-06 16:45 | CT_ITS ---
STUDY: CT ABDOMEN AND PELVIS WITHOUT CONTRAST REASON FOR EXAM: Female, 35 years old. Flank pain and frequency RADIATION DOSAGE (If Supplied By Facility): CTDIvol = ( 11.22 ) mGy, DLP = ( 538.30 ) mGycm TECHNIQUE: Transaxial images were obtained from the dome of the diaphragm to the symphysis pubis without oral contrast, and without intravenous contrast. Sagittal and coronal images were reconstructed. Individualized dose optimization techniques were used for this CT. COMPARISON: None. FINDINGS: The visualized lung bases are unremarkable. The visualized portions of the heart are within normal limits. Normal liver. Normal gallbladder and extrahepatic biliary system. Normal spleen. Normal pancreas. Normal bilateral adrenal glands. No obstructive uropathy or suspicious solid renal lesion, there is a punctate nonobstructing left renal stone. Normal visualized stomach. Normal small intestine. Retained stool noted throughout the colon There are surgical clips in the region of the appendix consistent with a prior appendectomy. Normal abdominal aorta. Normal inferior vena cava. Normal retroperitoneum. Normal urinary bladder. The uterus contains an IUD Normal abdominal wall. Normal osseous structures. CT/Abdomen/Pelvis without Cont IMPRESSION: No suspicious solid organ abnormality, specifically, no obstructive uropathy, there is a nonobstructing punctate left renal stone. Retained stool in the colon No free intraperitoneal fluid, air, or suspicious adenopathy Evidence of previous appendectomy IUD in the uterus Electronically Signed: Memo Rodriguez MD at 17:07 EST , Service support ,
== END ==
PROVIDERS: Referring Provider Urology; Visit Provider Urology
DX: N39.0 Urinary tract infection, site not specified (principal); M54.50 Low back pain, unspecified; R39.15 Urgency of urination
CPT/HCPCS: 74176

== ENCOUNTER 2021-09-19 05:52 | Day surgery (SDC) | payer BC, MEDICAID, SELFPAY ==
[2021-09-19] VITALS (7 sets, daily range): BP systolic 102–119; BP diastolic 64–75; PULSE 70–91; RESP 14–16; TEMP 36.2–37.4; O2SAT 97–100; BMI 25.9
[2021-09-19 06:22] LABS: Internal QC Validated? YES +Cl - CLEAR BKGD; Pregnancy, Urine Negative Negative
[2021-09-19] MEDS: Lactated Ringers 1,000 ML 15 ML IV (06:51)
--- NOTE | 2021-09-19 07:25 | PCM.OPRPT ---
Problems Associated Problem List Diagnoses (1) Urinary tract infection: (2) Urgency of micturition: (3) Frequency of micturition: Report of Operation Date of Procedure: 09/19/21 Pre-Operative Diagnosis: Recurrent urinary tract infections, urgency of urination, frequency of urination, nocturia Post-Operative Diagnosis: Same Surgery/Procedure Performed:: Pelvic exam under anesthesia, cystoscopy Surgeon: Stephanie Somers Type of Anesthesia: MAC Description of Procedure: The patient is a 35-year-old female with a history of recurrent urinary tract infections to presents for evaluation under anesthesia secondary to her anxiety and inability to tolerate it in the office. Informed consent was obtained. The patient was taken to the operating room and placed on the operating room table. Anesthesia monitored the head, neck, airway, IV access and vital signs throughout the case. Once anesthesia was appropriately administered, the patient was placed into dorsal lithotomy position was prepped and draped in usual sterile fashion. Pelvic examination revealed minimal to no perineal body support with a rectocele, uterine prolapse and a small cystocele. The cystoscope was then inserted through the urethra under direct visualization into the urinary bladder. The urethral and bladder mucosa was visualized in its entirety and found to be without evidence of mass, erythema, ulceration or foreign body. Of note the ureteral orifices are very medial in placement on the area of the trigone. At this time the patient's bladder was emptied and the case was terminated. The patient was awakened and taken to the recovery room in good condition. There were no complications during this procedure. Grafts/Implants Used: None Complications None Admit VTE Documentation VTE Present on Admission: Yes VTE Mechan Device Prophylaxis: SCD's VTE Pharm Prophylaxis ordered?: No Reason prophylaxis not ordered:: Treatment Not Indicated
--- NOTE | 2021-09-19 07:29 | PCM.DC ---
Discharge Instructions Diet Discharge Diet: No restrictions Activity Discharge Activity: Return to Normal Activity Dressing / Incision Call your doctor if you observe: Fever of 101 or Higher, Inability to urinate and Inability to have a bowel movement Follow Up Care Please Follow Up With: Stephanie Somers MD When: in the office in 2-3 weeks, call for appt Test Results: Test results from this visit will be discussed in further detail at your follow-up appointment, if applicable. Discharge Plan Admission Attending Provider: Stephanie Somers Primary Care Provider: Care PhysicianMarii Primary Discharge Orders/Prescriptions Prescriptions: Continued vitamin#30 30 mg iron-10 mg iron-folic acid 1 mg-omg3 capsule 30 mg iron-10 mg iron-1 mg capsule 1 cap PO DAILY RF: 0 B-complex with vitamin C [Super B Complex-Vitamin C] Tablet 1 tab PO DAILY RF: 0 cranberry 500 mg Capsule 500 mg PO BID RF: 0 Probiotic 3 billion cell Capsule 3,000 mmu cells PO DAILY RF: 0 albuterol (refill) 90 mcg/actuation Aerosol 90 mcg INHALATION PRN PRN (Reason: ASTHMA) RF: 0 ferrous sulfate [iron] 325 mg (65 mg iron) Tablet 325 mg PO DAILY RF: 0 methen-sod phos-meth blue-hyos [Urogesic-Blue] 81.6-40.8-0.12 mg tablet 1 tab PO 4X/DAY PRN PRN (Reason: UTI) RF: 0 Referrals / Follow Up: Care Physician,No Primary [Primary Care Provider] - Disposition Disposition (needs filled in before D/C Order can be placed): Home, Self Care
== END 2021-09-19 23:59 | disposition home or self-care (01) ==
LOC: SDC 05:53 → AC 05:54
PROVIDERS: Anesthesiology; Referring Provider Urology; Visit Provider Urology
PROC: 0TJB8ZZ Inspection of Bladder, Via Natural or Artificial Opening Endoscopic (ICD-10-PCS; CPT 57410; principal; 2021-09-19 07:20)
DX: N39.0 Urinary tract infection, site not specified (principal); J45.909 Unspecified asthma, uncomplicated; D64.9 Anemia, unspecified; Z86.16 Personal history of COVID-19
CPT/HCPCS: 52000; 00910; 81025; J7120; J2405

== ENCOUNTER 2021-10-01 09:19 | Emergency (ER) | payer BC, MEDICAID, SELFPAY ==
[2021-10-01 09:19] VITALS: BP 149/101; PULSE 96; RESP 16; TEMP 36.4; O2SAT 100; BMI 27.0
--- NOTE | 2021-10-01 09:40 | EDS_ITS ---
HPI HPI - Female History of Present Illness Chief Complaint: Female C/O Detail of Chief Complaint: Concerned IUD is not in proper position, cramping and vaginal bleeding Informant: patient Pain Onset: Hours Context: Sudden Onset Timing: Continuous Quality: Positive for Cramping Current Severity: Mild Maximum Severity: Severe Worsened by: [place] Bleeding Issue: Positive for Vaginal bleeding Onset: Hours Context: Sudden Onset Timing: Continuous Current Severity: Mild Associated Symptoms Sexually: Positive for Active Narrative Narrative: Patient presents because of cramping, vaginal bleeding and concerned that the IUD is not in proper position. Symptoms started during intercourse. She had the IUD placed April 2021. She has an appointment this coming October 04 to have the IUD removed. Patient no longer has cramping. She has minimal bleeding/spotting. She has not had a menstrual cycle since the IUD was placed. She denies nausea, vomiting or diarrhea. She denies dysuria, frequency, urgency or hematuria. She has had no problems prior to today with regards to the IUD. Prior similar symptoms: No Recent Illness/Hospitalization: No [facility] Medical History Alcohol use Anemia Anxiety Asthma Back pain Chest pain Encounter for insertion of mirena IUD Frequency of micturition History of COVID-19 History of edema Hypertension Leg cramps Restless legs Smoker Syncope Urgency of micturition Urinary tract infection Wears glasses Home Medications B-complex with vitamin C 1 tab PO DAILY 03/03/20 [History Last Taken 09/18/21] vitamin#30 30 mg iron-10 mg iron-folic acid 1 mg-omg3 capsule 1 cap PO DAILY 03/03/20 [History Last Taken 09/18/21] Probiotic 3,000 mmu cells PO DAILY 09/12/21 [History Last Taken 09/18/21] albuterol (refill) 90 mcg INHALATION PRN PRN 09/12/21 [History Last Taken 09/18/21] cranberry 500 mg PO BID 09/12/21 [History Last Taken 09/18/21] ferrous sulfate [iron] 325 mg PO DAILY 09/12/21 [History Last Taken 09/18/21] methen-sod phos-meth blue-hyos [Urogesic-Blue] 1 tab PO 4X/DAY PRN PRN 09/19/21 [History Last Taken 09/18/21] Allergy/AdvReac Type Severity Reaction Status Date / Time latex Allergy Severe Hives Verified 10/01/21 09:22 coconut Allergy Mild Rash Verified 10/01/21 09:22 Penicillins Allergy Mild Hives Verified 10/01/21 09:22 Sulfa (Sulfonamide Allergy Fever and Verified 10/01/21 09:22 Antibiotics) skin rash clarithromycin [From Biaxin] AdvReac Severe Vomiting Verified 10/01/21 09:22 Family History Father Diabetes Heart disease Hypertension Hyperlipidemia Surgical History H/O rotator cuff surgery History of wisdom tooth extraction, class II edentulism Hx of appendectomy Social History (Updated 10/01/21 @ 09:[address] 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[employer] [facility] ROS ED Constitutional Constitutional ED: Denies chills, fever(s), subjective or sweats Cardiovascular Cardiovascular: Denies chest pain or palpitations Respiratory/Chest Respiratory/Chest: Denies dyspnea Gastrointestinal Gastrointestinal: Denies abdominal pain, diarrhea, nausea or vomiting Genitourinary Genitourinary ED: Reports vaginal bleeding; Denies dysuria, hematuria, urinary frequency or vaginal discharge Musculoskeletal Musculoskeletal: Denies arthralgias or myalgias Integumentary Denies Abrasions or rash Psychiatric Psychiatric: Reports anxiety Hematologic/Lymphatic Hematologic/Lymphatic: Reports anemia; Denies easy bleeding or easy bruising EXAM Physical Exam Const Vital Signs: 10/01/21 09:19 Temperature 97.6 F L Temperature Source Temporal Pulse Rate 96 Respiratory Rate 16 Blood Pressure 149/101 H Blood Pressure Mean 117 Pulse Ox 100 Oxygen Delivery Method Room Air Positive well nourished and well developed General Appearance ED: well developed and NAD; Negative for pallor HEENT Reports moist mucous membranes HEENT Narrative: Nares patent. Ears normal. Negative for trauma or tenderness Eyes PERRL and EOMs intact bilaterally General Eye ED: Negative for pale conjunctiva Neck supple Resp normal respiratory effort and clear to auscultation bilaterally Cardio regular rate, regular rhythm, S1 normal heart sound, no murmurs and no JVD GI normal to inspection, nondistended, normoactive bowel sounds, soft to palpation and non-tender External Female Exam: normal appearance of the urethra Speculum Exam - Vagina: vaginal bleeding scant; Negative for vaginal erythema, vaginal laceration, vaginal lesion, tissue present in vagina, vaginal mass, vaginal swelling, vaginal tenderness, vaginal discharge or vaginal ecchymosis Speculum Exam - Cervix: cervical os closed, cervical bleeding and other IUD string noted. The distal portion of the ID is protruding from the cervix. The IUD was removed without difficulty. ; Negative for cervical lesion, cervical laceration or cervical tenderness Back/Spine no CVA tenderness Lumbar Spine / Lower Back: Negative for lumbar spinal tenderness Neuro oriented x3 and CN's II-XII intact bilaterally Sensorium / Orientation: alert Psych Mood & Affect: anxious Skin no rashes or lesions noted and no wounds General Skin Exam: Negative for jaundice or pallor MDM MDM MDM Narrative Medical decision making narrative: Plan pelvic exam to determine source of bleeding. Patient requesting the IUD be removed. Since she scheduled to have it removed on Sunday if string is visible will remove IUD. Since the IUD was displaced and plan was to have it removed on Sunday the IUD was removed at the time of examination. Discharge Plan Triage Chief Complaint: Female C/O ED Provider: Olman Alvarez Dx/Rx/DC Orders Clinical Impression: Vaginal bleeding, Remove/insert IUD Instructions: Understanding Uterine Bleeding Prescriptions: No Action vitamin#30 30 mg iron-10 mg iron-folic acid 1 mg-omg3 capsule 30 mg iron-10 mg iron-1 mg capsule 1 cap PO DAILY RF: 0 B-complex with vitamin C [Super B Complex-Vitamin C] Tablet 1 tab PO DAILY RF: 0 cranberry 500 mg Capsule 500 mg PO BID RF: 0 Probiotic 3 billion cell Capsule 3,000 mmu cells PO DAILY RF: 0 albuterol (refill) 90 mcg/actuation Aerosol 90 mcg INHALATION PRN PRN (Reason: ASTHMA) RF: 0 ferrous sulfate [iron] 325 mg (65 mg iron) Tablet 325 mg PO DAILY RF: 0 methen-sod phos-meth blue-hyos [Urogesic-Blue] 81.6-40.8-0.12 mg tablet 1 tab PO 4X/DAY PRN PRN (Reason: UTI) RF: 0 Primary Care Provider: Care Physician,No Primary Referrals: Carolina Goins MD [STAFF PHYSICIAN] - Keep [facility] appointment Care Physician,No Primary [Primary Care Provider] - Disposition Disposition: Home, Self Care
== END 2021-10-01 10:14 | disposition home or self-care (01) ==
PROVIDERS: Emergency Provider Emergency Medicine; Visit Provider Emergency Medicine
DX: N93.9 Abnormal uterine and vaginal bleeding, unspecified (principal); Z30.430 Encounter for insertion of intrauterine contraceptive device; F17.290 Nicotine dependence, other tobacco product, uncomplicated; I10 Essential (primary) hypertension; F41.9 Anxiety disorder, unspecified; Z86.16 Personal history of COVID-19; J45.909 Unspecified asthma, uncomplicated; Z87.440 Personal history of urinary (tract) infections; Z79.899 Other long term (current) drug therapy; D64.9 Anemia, unspecified
CPT/HCPCS: 99282

== ENCOUNTER → 2021-12-06 | Outpatient (CLI) | payer BC, MEDICAID, SELFPAY ==
--- NOTE | 2021-12-06 09:07 | US_ITS ---
STUDY: FIRST TRIMESTER OBSTETRICAL ULTRASOUND REASON FOR EXAM: Female, 35 years old rule out ectopic -- THREATENED AB, R/O ECTOPIC -- SPOTTING -- LEFT PELVIC PAIN -- LMP 10/27/21 -2 DAY PERIOD LMP: 10/27/2021. TECHNIQUE: Transvaginal TECHNICAL QUALITY: Adequate. PRIOR ULTRASOUND: None. FINDINGS: There is no demonstrated intrauterine gestational sac. There is no demonstrated yolk sac. The placenta is non-visualized. There is no demonstrated embryo ( pole). The estimated gestation age (EGA) by LMP is 5 weeks, 5 days. The estimated date of delivery (OMKAR) by LMP is 04/03/2023. The uterus measures 9.1 cm x 7.1 cm x 5.9 cm. There is no demonstrated uterine fibroid. The cervix is closed. The endometrium is thickened measuring up to 2.2 cm. 4 mm x 4 mm x 2 mm cyst is seen in the subendometrial region. No intrauterine gestational sac is seen. The right ovary measures 4.4 cm x 6.1 cm x 3.3 cm. 2 simple cysts are seen in the right ovary. The larger cyst measures 3 cm x 2.2 cm x 2.8 cm. There is no visualized right adnexal mass or complex lesion. The left ovary measures 6.2 cm x 5.9 cm x 3.7 cm.. 2 cysts are seen in the left ovary. The larger cyst measures 2.9 cm x 2.9 cm x 2.9 cm. There is no visualized left adnexal mass or complex lesion. There is minimal fluid in the cul de sac. US/Transvaginal w/Preg US IMPRESSION: No intrauterine gestation is seen. Multiple bilateral ovarian cyst as described. Serial beta hCG correlation recommended. Tiny amount of pelvic fluid. Electronically Signed: Minesh Gonzales MD at 10:41 EDT ,
[2021-12-06 10:38] LABS: hCG Titer Quant., Serum 700 mIU/mL (1-3)
== END | disposition home or self-care (01) ==
PROVIDERS: Referring Provider Obstetrics & Gynecology; Visit Provider Obstetrics & Gynecology
DX: O20.0 Threatened abortion (principal); Z3A.00 Weeks of gestation of pregnancy not specified
CPT/HCPCS: 36415; 76817; 84702; 93976

== ENCOUNTER → 2021-12-08 | Outpatient (CLI) | payer BC, MEDICAID, SELFPAY ==
[2021-12-08 14:09] LABS: hCG Titer Quant., Serum 1836 mIU/mL (1-3)
== END | disposition home or self-care (01) ==
LOC: PAVLAB 13:16
PROVIDERS: Visit Provider Obstetrics & Gynecology
DX: O36.80X0 Pregnancy with inconclusive fetal viability, not applicable or unspecified (principal); Z3A.00 Weeks of gestation of pregnancy not specified
CPT/HCPCS: 36415; 84702

== ENCOUNTER → 2021-12-15 | Outpatient (CLI) | payer BC, MEDICAID, SELFPAY ==
--- NOTE | 2021-12-15 07:52 | US_ITS ---
STUDY: FIRST TRIMESTER OBSTETRICAL ULTRASOUND REASON FOR EXAM: Female, 35 years old early LMP: 10/27/2021 TECHNIQUE: Transvaginal TECHNICAL QUALITY: Adequate. PRIOR ULTRASOUND: 12/06/2021 FINDINGS: There is visualization of a single gestational sac in a normal intrauterine position. The mean sac diameter (MSD) measures 13 mm, indicating an estimated gestational age (EGA) of 6 weeks, 0 days. The gestational sac shape is within normal limits. There is a visualized yolk sac. The yolk sac measures 3 mm. The placenta is non-visualized. There is visualization of a live embryo. The crown-rump length (CRL) measures 2 mm, indicating an estimated gestational age (EGA) of 6 weeks, 0 days. There is demonstrated cardiac activity with a heart rate of 111 bpm. The estimated gestation age (EGA) by LMP is 7 weeks, 0 days. The estimated date of delivery (OMKAR) by LMP is 08/03/2022. The estimated gestation age (EGA) by US is 60 weeks, 0 days. The estimated date of delivery (OMKAR) by US is 08/10/2022. The uterus measures 10.2 x 7.5 x 7.5. There is no demonstrated uterine fibroid. The cervix is closed. The right ovary measures 6.2 x 3.7 x 3.2. There are multiple theca lutein cysts. There is no visualized right adnexal mass or complex lesion. The left ovary measures 6.1 x 3.9 x 3.8 cm. There are multiple theca lutein cysts. There is no visualized left adnexal mass or complex lesion. There is no fluid in the cul de sac. US/Transvaginal w/Preg US IMPRESSION: Living of 6 weeks 0 days as described above. Electronically Signed: Osman Parrish MD at 9:07 EDT ,
== END | disposition home or self-care (01) ==
LOC: OPUS 07:51
PROVIDERS: Visit Provider Obstetrics & Gynecology
DX: Z34.91 Encounter for supervision of normal pregnancy, unspecified, first trimester (principal)
CPT/HCPCS: 76817

== ENCOUNTER → 2022-01-04 | Outpatient (CLI) | payer BC, MEDICAID, SELFPAY ==
[2022-01-04 16:07] LABS: Amphetamine Urine VISTA NEGATIVE (<1000 ng/mL); Barbiturate Urine VISTA NEGATIVE (< 200 ng/mL); Benzodiazepine Urine VISTA NEGATIVE (< 200 ng/mL); Cocaine Urine VISTA NEGATIVE (< 300 ng/mL); Ecstacy Urine VISTA NEGATIVE (< 500 ng/mL); Methadone Urine VISTA NEGATIVE (< 300 ng/mL); PCP Urine VISTA NEGATIVE (< 25 ng/mL); THC Urine VISTA NEGATIVE (< 50 ng/mL); Vista UDS pH Range 6
[2022-01-07 13:07] LABS: Chlamydia By Nucleic Acid AMP Negative (Negative)
[2022-01-08 16:52] LABS: Gonococcus By Nucleic Acid AMP Negative (Negative)
== END | disposition home or self-care (01) ==
LOC: LABSPEC 01-05 08:38
PROVIDERS: Visit Provider Obstetrics & Gynecology
DX: O09.521 Supervision of elderly multigravida, first trimester (principal); Z3A.00 Weeks of gestation of pregnancy not specified
CPT/HCPCS: 80307; 87077; 87086; 87088; 87186; 87491; 87591

== ENCOUNTER → 2022-01-30 | Outpatient (CLI) | payer BC, MEDICAID, SELFPAY ==
[2022-01-30 10:16] LABS: Absolute Lymphocyte Count 1.84 X10^3/uL (0.83-4.51); Absolute Neutrophil Count 5.5 X10^3/uL (2.0-7.7); Basophil# 0.01 X10^3/uL; Basophil% 0.1 % (0-1); Eosinophils% 1.3 % (0-5); Hematocrit 37.6 % (37-47); Hemoglobin 12.1 g/dL (12.0-15.0); Lymphocyte # 1.84 X10^3/ul (0.83-4.51); Lymphocyte % 23.2 % (19-41); Mean Corp Hgb Conc 32.2 g/dL (32-36); Mean Corpuscular Hgb 30.6 pg (27.0-32.0); Mean Corpuscular Volume 94.9 fL (81-99); Mean Platelet Vol. 8.7 fl (6.2-12.0); Monocyte# 0.51 X10^3/uL; Monocyte% 6.4 % (0-10); NRBC Flagged by Analyzer 0 % (0-5); Neutrophil # 5.45 X10^3/uL (2.7-7.7); Neutrophil % 68.7 % (47-70); Platelet Count 341 K/mm3 (150-450); RBC Distribution Width CV 12.8 % (11.6-14.6); RBC Distribution Width SD 44.3 fl (35.1-43.9); Red Blood Count 3.96 M/mm3 (4.2-5.4); White Blood Count 7.9 K/mm3 (4.4-11.0)
[2022-01-30 10:54] LABS: NATERA MAILED SPECIMEN
[2022-01-30 11:23] LABS: HIV - WCH Non-Reactive (Nonreactive); Hepatitis B Surface Antigen Non-Reactive (Nonreactive); Hepatitis C Antibody Non-Reactive (Nonreactive); Rubella IgG Reactive (Nonreactive); Syphilis Antibodies Non-reactive
== END | disposition home or self-care (01) ==
LOC: PAVLAB 09:42
PROVIDERS: Obstetrics & Gynecology; Referring Provider Obstetrics & Gynecology; Visit Provider Obstetrics & Gynecology
DX: O09.521 Supervision of elderly multigravida, first trimester (principal); Z3A.00 Weeks of gestation of pregnancy not specified
CPT/HCPCS: 36415; 85025; 86703; 86762; 86780; 86803; 86850; 86900; 86901; 87340

== ENCOUNTER 2022-02-10 10:31 | Emergency (ER) | payer BC, MEDICAID, SELFPAY ==
[2022-02-10 10:32] VITALS: BP 155/73; PULSE 95; RESP 18; TEMP 36.2; O2SAT 95; BMI 27.0
--- NOTE | 2022-02-10 10:44 | US_ITS ---
STUDY: RENAL ULTRASOUND - COMPLETE REASON FOR EXAM: Female, 36 years old. LLQ abdominal pain TECHNIQUE: Ultrasound evaluation of the kidneys was performed with real-time and static aguirre-scale imaging. COMPARISON: None. FINDINGS: RIGHT KIDNEY: Normal location of the right kidney, which is normal in size. The right kidney measures 12.6 cm x 5.7 cm x 4.6 cm. There is a normal cortex of the right kidney. The renal cortex measures 1.1 cm. There is no right renal mass or cyst. There are no right renal calculi. There is no right hydronephrosis. DISTAL RIGHT URETER: There is non-visualization of the distal right ureter. There is no demonstrated right ureterovesical junction calculus. There is a visualized right ureteral jet. LEFT KIDNEY: Normal location of the left kidney, which is normal in size. The left kidney measures 11.5 cm x 4.4 cm x 6 cm. There is a normal cortex of the left kidney. The renal cortex measures 1.7 cm. There is no left renal mass or cyst. There are no left renal calculi. There is no left hydronephrosis. DISTAL LEFT URETER: There is non-visualization of the distal left ureter. There is no demonstrated left ureterovesical junction calculus. There is a visualized left ureteral jet. BLADDER: The distended urinary bladder has a volume of 74 ml. There is a normal wall thickness of the distended urinary bladder. There is no demonstrated mass within the urinary bladder. There are no demonstrated bladder calculi. US/Kidney and Bladder IMPRESSION: Normal ultrasound of the kidneys and urinary bladder. Electronically Signed: Minesh Gonzales MD at 13:17 EDT ,
--- NOTE | 2022-02-10 10:44 | US_ITS ---
STUDY: SECOND AND THIRD TRIMESTER OBSTETRICAL ULTRASOUND - LIMITED REASON FOR EXAM: Female, 36 years old concern for ovarian torsion LMP: 11/03/2021. PRIOR ULTRASOUND: Comparison is made with prior study dated 12/15/2021. TECHNIQUE: Transabdominal and Transvaginal TECHNICAL QUALITY: Adequate. FINDINGS: There is a single intrauterine fetus. The fetus is in a breech presentation. There is demonstrated cardiac activity with a heart rate of 155 bpm. There is a normal amniotic fluid volume. The amniotic fluid index (HALINA) is with normal limits. The placenta is posterior with a marginal previa. There are Grade 0 placental changes. The cervix measures 8.1 cm in length. BIOMETRY: BPD: 2.44 cm: 14 weeks, 2 days HC: 9.83 cm: 14 weeks, 4 days AC: 7.95 cm: 14 weeks, 3 days FL: 1.57 cm: 14 weeks, 5 days Age by LMP: 14 weeks, 1 days. OMKAR by LMP: 08/10/2022. age by prior US: 14 weeks, 1 days. OMKAR by prior US: 08/10/2022. age by current US: 14 weeks, 4 days. OMKAR by current US: 08/07/2022. Estimated weight: 99 grams, +/- 15 grams, 60 percentile. Follicle is seen in the right ovary. 2 cysts are seen in the left ovary the largest measures 2.4 cm x 2.6 times by 2.7 cm. Normal arterial and venous flow of both ovaries. US/OB Limited With Biometrics IMPRESSION: Single live intrauterine gestation with mean gestational age of 14 weeks and 1 day. Left ovarian cysts. Posterior marginal placenta previa. Follow-up recommended. Normal arterial and venous flow of both ovaries. Electronically Signed: Minesh Gonzales MD at 13:23 EDT ,
--- NOTE | 2022-02-10 10:46 | EX.ED.DYSGE1 ---
HPI <VERN Hair - Last Filed: 02/10/22 13:45> History of Present Illness Chief Complaint: Abd Pain Narrative Narrative: 36-year-old female who is a 5 para 4 who is currently 14.5 weeks presents to the emergency department with complaint of sudden onset of left lower quadrant abdominal pain. Patient was driving to work today, when she had a sudden onset of left lower quadrant abdominal pain, a feeling of nausea. Patient states that the pain is unrelenting, it goes from sharp to burning. Patient denies any vomitus, diarrhea. Denies any fevers or chills. Denies any difficulty urinating. [facility] <VERN Hair - Last Filed: 02/10/22 13:45> [facility] Medical History (Updated 02/13/22 @ 16:[address] Salena Paiz, DO) Alcohol use Anemia Anxiety Asthma Back pain Chest pain Encounter for insertion of mirena IUD Frequency of micturition History of COVID-19 History of edema Hypertension Leg cramps Restless legs Smoker Syncope Urgency of micturition Urinary tract infection Wears glasses Home Medications B-complex with vitamin C (Super B Complex-Vitamin C tablet) 1 tab PO DAILY Check with primary doctor 03/03/20 [History Last Taken 09/18/21] vitamin#30 30 mg iron-10 mg iron-folic acid 1 mg-omg3 capsule 1 cap PO DAILY Check with primary doctor 03/03/20 [History Last Taken 09/18/21] albuterol (refill) 90 mcg/actuation aerosol inhaler 90 mcg inhalation PRN PRN ASTHMA 09/12/21 [History Last Taken 09/18/21] lactobacillus combination no.4 3 billion cell capsule (Probiotic) 3,000 mmu cells PO DAILY 09/12/21 [History Last Taken 09/18/21] magnesium oxide 500 mg capsule 500 mg PO DAILY 01/04/22 [History Last Taken Unknown] ondansetron 4 mg disintegrating tablet 4 mg PO Q8H PRN nausea and vomiting #30 tabs 01/04/22 [Rx Last Taken Unknown] potassium 99 mg tablet 99 mg PO DAILY 02/10/22 [History Last Taken Unknown] Allergy/AdvReac Type Severity Reaction Status Date / Time latex Allergy Severe Hives Verified 01/30/22 09:07 coconut Allergy Mild Rash Verified 01/30/22 09:07 Penicillins Allergy Mild Hives Verified 01/30/22 09:07 Sulfa (Sulfonamide Allergy Fever and Verified 01/30/22 09:07 Antibiotics) skin rash clarithromycin [From Biaxin] AdvReac Severe Vomiting Verified 01/30/22 09:07 Family History Father Diabetes Heart disease Hypertension Hyperlipidemia Surgical History H/O rotator cuff surgery History of wisdom tooth extraction, class II edentulism Hx of appendectomy Social History household members: spouse Smoking Status: Former smoker Electronic Cigarette Use: with nicotine alcohol intake: never do you feel safe at home: Yes 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 Positive left lower quadrant abdominal pain : Negative for any urinary frequency, dysuria, retention, blood in urine Muscle skeletal: Negative for any muscle joint pain, stiffness, myalgias, arthralgias, neck pain, back pain Neurological: Negative for any headache, syncope, numbness or tingling, dizziness Skin: Negative for any rashes, lumps, itching, abrasions, lacerations Psychiatric: Negative for any depression, anxiety, stress, suicidal ideation, homicidal ideation Hematologic: Negative for any easy bruising, excessive bruising, easy bleeding Allergies: Negative for any eczema, hives, rash EXAM <VERN Hair - Last Filed: 02/10/22 13:45> Physical Exam Narrative Exam Narrative: Vital signs reviewed. Patient appears to be in mild distress secondary to left lower quadrant abdominal pain. HEET: Head normocephalic atraumatic, TMs clear bilaterally. Posterior pharynx is clear, moist mucous membranes. Nares clear bilaterally. Neck: Supple with no lymphadenopathy or tenderness. No signs of meningismus, negative jolt sign. Cardiac: Regular rate and rhythm no murmurs gallops or rubs, equal peripheral pulses bilaterally. Respiratory: Lungs clear to auscultation bilaterally. No chest tenderness. Abdomen: Soft, nondistended. No abdominal bruit or pulsatile masses. No hepatosplenomegaly. Tenderness to left lower quadrant Extremities: No peripheral edema, no signs of gross trauma or deformity. Active full range of motion of all extremities. Neuro: Cranial nerves II through XII intact, no focal neurological deficits. Skin: Clean dry and intact with no rash, purpura, petechiae, vesicles or pustules. Backs/flank: No CVA tenderness, no midline spinal tenderness, no deformity. Psych: Normal mood and affect. No SI, HI or acute psychosis. Const Vital Signs: 02/10/22 10:32 02/10/22 12:23 Temperature 97.1 F L Temperature Source Temporal Pulse Rate 95 72 Respiratory Rate 18 16 Blood Pressure 155/73 H 111/58 L Blood Pressure Mean 100 75 Pulse Ox 95 98 Oxygen Delivery Method Room Air Room Air Image ED - Body Diagram Man: 1. <Dr. Salena Paiz DO - Last Filed: 02/13/22 16:16> Physical Exam Const Vital Signs: 02/10/22 10:32 02/10/22 12:23 Temperature 97.1 F L Temperature Source Temporal Pulse Rate 95 72 Respiratory Rate 18 16 Blood Pressure 155/73 H 111/58 L Blood Pressure Mean 100 75 Pulse Ox 95 98 Oxygen Delivery Method Room Air Room Air MDM <VERN Hair - Last Filed: 02/10/22 13:45> [facility] Lab Data Labs: Laboratory Results - last 24 hr 02/10/22 02/10/22 02/10/22 11:00 11:10 11:10 WBC 8.2 RBC 3.76 L Hgb 11.4 L Hct 36.2 L MCV 96.3 MCH 30.3 MCHC 31.5 L RDW Std Deviation 45.5 H RDW Coeff of Isatu 13.1 Plt Count 319 MPV 8.6 Immature Gran % (Auto) 0.600 Neut % (Auto) 72.7 H Lymph % (Auto) 18.8 L Liberty % (Auto) 6.6 Eos % (Auto) 1.1 Baso % (Auto) 0.2 Absolute Neuts (auto) 5.9 Absolute Lymphs (auto) 1.54 Nucleated RBC % 0 Sodium 137 Potassium 4.0 Chloride 106 Carbon Dioxide 29.0 Anion Gap 2 L BUN 12 Creatinine 0.56 Estim Creat Clear Calc 166.90 Est GFR (MDRD) Af Amer 159 Est GFR (MDRD) Non-Af 131 BUN/Creatinine Ratio 21.5 H Glucose 80 Calcium 8.9 Total Bilirubin 0.40 AST 11 L ALT 20 Alkaline Phosphatase 57 Total Protein 6.9 Albumin 3.0 L Globulin 3.9 Albumin/Globulin Ratio 0.8 L Lipase 65 L Urine Color Yellow Urine Clarity Clear Urine pH 7.0 Ur Specific [place] 1.010 Urine Protein Negative Urine Glucose (UA) Normal Urine Ketones Negative Urine Occult Blood Negative Urine Nitrite Negative Urine Bilirubin Negative Urine Urobilinogen Normal Ur Leukocyte Esterase Negative Urine RBC 0 SEEN Urine WBC 0 SEEN Ur Squamous Epith Cells 0 SEEN Urine Bacteria 0 SEEN Urine Mucus 0 SEEN Radiography Diagnostic Testing: Clinical Impression(s) from Imaging Studies Obstetrics Ultrasound 02/10/22 10:44 IMPRESSION: Single live intrauterine gestation with mean gestational age of 14 weeks and 1 day. Left ovarian cysts. Posterior marginal placenta previa. Follow-up recommended. Normal arterial and venous flow of both ovaries. Electronically Signed: Minesh Gonzales MD at 13:23 EDT , ADDENDUM: 02/10/22 1338 IMPRESSION: undefined Renal Ultrasound 02/10/22 10:44 IMPRESSION: Normal ultrasound of the kidneys and urinary bladder. Electronically Signed: Minesh Gonzales MD at 13:17 EDT , Treatment and Re-Evaluation Narrative: Patient appears in mild distress secondary to left lower quad abdominal pain, patient is 14 weeks , developed left lower quad abdominal pain is here for evaluation. Patient did receive a full abdominal work-up. Patient's CBC, chemistries were unremarkable. Patient's urinalysis was negative for any infection. Concerning for left ovarian torsion, possible left renal calculi, patient did receive a ultrasound of the renal and bladder, this showed a normal ultrasound the kidneys and urinary bladder. Patient also received a transvaginal ultrasound, this showed a single live intrauterine gestation with mediastinal age of 14 weeks and 1 day. Left ovarian cyst. Posterior marginal placenta previa, she will follow with Dr. César Holly who is her [employer]. Patient did have relief of symptoms with IV morphine x2, IV fluids. IV Zofran. I will reach out to the patient's [employer] and discussed the patient's case that she has close follow-up. She is instructed return for any worsening symptoms. She instructed take Tylenol at home. Stable for discharge. At this time there is no evidence of any acute obstructing renal calculus, left ovarian torsion. <Dr. Salena Paiz, DO - Last Filed: 02/13/22 16:16> [facility] Lab Data Labs: Laboratory Results - last 24 hr 02/10/22 02/10/22 02/10/22 11:00 11:10 11:10 WBC 8.2 RBC 3.76 L Hgb 11.4 L Hct 36.2 L MCV 96.3 MCH 30.3 MCHC 31.5 L RDW Std Deviation 45.5 H RDW Coeff of Isatu 13.1 Plt Count 319 MPV 8.6 Immature Gran % (Auto) 0.600 Neut % (Auto) 72.7 H Lymph % (Auto) 18.8 L Liberty % (Auto) 6.6 Eos % (Auto) 1.1 Baso % (Auto) 0.2 Absolute Neuts (auto) 5.9 Absolute Lymphs (auto) 1.54 Nucleated RBC % 0 Sodium 137 Potassium 4.0 Chloride 106 Carbon Dioxide 29.0 Anion Gap 2 L BUN 12 Creatinine 0.56 Estim Creat Clear Calc 166.90 Est GFR (MDRD) Af Amer 159 Est GFR (MDRD) Non-Af 131 BUN/Creatinine Ratio 21.5 H Glucose 80 Calcium 8.9 Total Bilirubin 0.40 AST 11 L ALT 20 Alkaline Phosphatase 57 Total Protein 6.9 Albumin 3.0 L Globulin 3.9 Albumin/Globulin Ratio 0.8 L Lipase 65 L Urine Color Yellow Urine Clarity Clear Urine pH 7.0 Ur Specific [place] 1.010 Urine Protein Negative Urine Glucose (UA) Normal Urine Ketones Negative Urine Occult Blood Negative Urine Nitrite Negative Urine Bilirubin Negative Urine Urobilinogen Normal Ur Leukocyte Esterase Negative Urine RBC 0 SEEN Urine WBC 0 SEEN Ur Squamous Epith Cells 0 SEEN Urine Bacteria 0 SEEN Urine Mucus 0 SEEN Radiography Diagnostic Testing: Clinical Impression(s) from Imaging Studies Obstetrics Ultrasound 02/10/22 10:44 IMPRESSION: Single live intrauterine gestation with mean gestational age of 14 weeks and 1 day. Left ovarian cysts. Posterior marginal placenta previa. Follow-up recommended. Normal arterial and venous flow of both ovaries. Electronically Signed: Minesh Gonzales MD at 13:23 EDT , ADDENDUM: 02/10/22 1338 IMPRESSION: undefined Renal Ultrasound 02/10/22 10:44 IMPRESSION: Normal ultrasound of the kidneys and urinary bladder. Electronically Signed: Minesh Gonzales MD at 13:17 EDT , Treatment and Re-Evaluation Narrative: Patient appears in mild distress secondary to left lower quad abdominal pain, patient is 14 weeks , developed left lower quad abdominal pain is here for evaluation. Patient did receive a full abdominal work-up. Patient's CBC, chemistries were unremarkable. Patient's urinalysis was negative for any infection. Concerning for left ovarian torsion, possible left renal calculi, patient did receive a ultrasound of the renal and bladder, this showed a normal ultrasound the kidneys and urinary bladder. Patient also received a transvaginal ultrasound, this showed a single live intrauterine gestation with mediastinal age of 14 weeks and 1 day. Left ovarian cyst. Posterior marginal placenta previa, she will follow with Dr. César Holly who is her [employer]. Patient did have relief of symptoms with IV morphine x2, IV fluids. IV Zofran. I will reach out to the patient's [employer] and discussed the patient's case that she has close follow-up. She is instructed return for any worsening symptoms. She instructed take Tylenol at home. Stable for discharge. At this time there is no evidence of any acute obstructing renal calculus, left ovarian torsion. I have personally performed a face to face assessment of the patient and have reviewed the WOLF Note. I performed a substantive portion of the visit including all aspects of the following. My trinh findings include: History is patient is a 36-year-old female, currently 14 weeks presenting with sudden onset of left lower quadrant abdominal pain. Patient states she was driving when she suddenly developed severe pain in that region. She denies any vaginal bleeding or urinary symptoms. She follows with Dr. Jayro Holly. Exam is patient is overall well-appearing but appears uncomfortable. Head normocephalic/atraumatic. Moist [place] membranes. Neck is supple. Heart regular rate and rhythm. Lungs are clear to auscultation. Abdomen is soft. She does have tenderness in a very well circumscribed area of the left lower quadrant. No hernia appreciated. No rebound tenderness. No palpable uterus. No CVA tenderness. No overlying rash or skin changes. Normal peripheral extremities. No swelling appreciated. Medical Decison Making Patient is evaluated for sudden onset of left lower quadrant abdominal pain. Differential includes renal colic, ovarian torsion, muscle skeletal pain and pyelonephritis. There is no palpable hernia. Pelvic ultrasound as well as bladder/kidney ultrasound is obtained. Normal intrauterine gestation consistent with her dates found. Normal ovaries with normal blood flow seen. There is posterior marginal placenta previa. She is normal ultrasound the kidneys and urinary bladder is no signs consistent with hydronephrosis and no stones visualized. Patient was given IV morphine, fluids and Zofran in the emergency room. Case is discussed with on-call OB to ensure close follow-up. Patient given return precautions. She will take Tylenol at home as needed. At this time there does not appear to be any acute surgical emergency or obvious reversible threat to her . Will be discharged home. Other additions or changes: [None] Discharge Plan Triage Chief Complaint: Abd Pain ED Midlevel Provider: Kyrie Casper ED Provider: Salena Paiz Dx/Rx/DC Orders Clinical Impression: Abdominal pain, , Placenta previa antepartum in second trimester Instructions: Abdominal Pain Prescriptions: No Action vitamin#30 30 mg iron-10 mg iron-folic acid 1 mg-omg3 capsule 30 mg iron-10 mg iron-1 mg capsule 1 cap PO DAILY B-complex with vitamin C [Super B Complex-Vitamin C] Tablet 1 tab PO DAILY magnesium oxide 500 mg capsule 500 mg PO DAILY ondansetron 4 mg tablet,disintegrating 4 mg PO Q8H PRN (Reason: nausea and vomiting) Qty: 30 3RF Probiotic 3 billion cell Capsule 3,000 mmu cells PO DAILY albuterol (refill) 90 mcg/actuation Aerosol 90 mcg INHALATION PRN PRN (Reason: ASTHMA) potassium 99 mg Tablet 99 mg PO DAILY Primary Care Provider: Care Physician,No Primary Referrals: Carolina Goins MD [STAFF PHYSICIAN] - Care Physician,No Primary [Primary Care Provider] - Activity Restrictions/Additional Instructions: Please follow-up with your [employer]. They do note that you were here today, please call for further issues, they can try to get you into the office next week if needed. Please return here for any worsening symptoms. Print Language: Malian Disposition Disposition: Home, Self Care Discharge Date/Time: 02/10/22 14:07
[2022-02-10 11:05] LABS: Bacteria 0 SEEN /hpf (None Seen); Mucous, Urine 0 SEEN /hpf (<or=2+); Red Blood Cells-Urine 0 SEEN /hpf (0-5); Squamous Epithelial Cells - UA 0 SEEN /hpf (5-10); White Blood Cells 0 SEEN /hpf (0-5)
[2022-02-10] MEDS: Ondansetron 4 MG/2 ML Vial IV (11:06)
[2022-02-10] MEDS: Morphine 4 MG/ML Syringe IV ×2 (11:06→13:41)
[2022-02-10] MEDS: 0.9% Normal Saline 1,000 ML 1000 ML IV (11:06)
[2022-02-10 11:12] LABS: Color, Urine Yellow (Yellow); Glucose, Dipstick Normal (Normal); Ketone-Dipstick Negative (Negative); Leukocyte Esterase-Dipstick Negative /ul (Negative); Nitrite-Dipstick Negative (Negative); Occult Blood-Urine Negative /ul (Negative); Protein-Dipstick Negative (Negative); Urine Bilirubin Dipstick Negative (Negative); Urine Clarity Clear (Clear); Urine Urobilinogen Normal (Normal)
[2022-02-10 11:18] LABS: Absolute Lymphocyte Count 1.54 X10^3/uL (0.83-4.51); Absolute Neutrophil Count 5.9 X10^3/uL (2.0-7.7); Basophil# 0.02 X10^3/uL; Basophil% 0.2 % (0-1); Eosinophil# 0.09 X10^3/uL; Eosinophils% 1.1 % (0-5); Hematocrit 36.2 % (37-47); Hemoglobin 11.4 g/dL (12.0-15.0); Lymphocyte # 1.54 X10^3/ul (0.83-4.51); Lymphocyte % 18.8 % (19-41); Mean Corp Hgb Conc 31.5 g/dL (32-36); Mean Corpuscular Hgb 30.3 pg (27.0-32.0); Mean Corpuscular Volume 96.3 fL (81-99); Mean Platelet Vol. 8.6 fl (6.2-12.0); Monocyte# 0.54 X10^3/uL; Monocyte% 6.6 % (0-10); NRBC Flagged by Analyzer 0 % (0-5); Neutrophil # 5.93 X10^3/uL (2.7-7.7); Neutrophil % 72.7 % (47-70); Platelet Count 319 K/mm3 (150-450); RBC Distribution Width CV 13.1 % (11.6-14.6); RBC Distribution Width SD 45.5 fl (35.1-43.9); Red Blood Count 3.76 M/mm3 (4.2-5.4); White Blood Count 8.2 K/mm3 (4.4-11.0)
[2022-02-10 11:36] LABS: ALB/GLOB Ratio 0.8 RATIO (0.9-2.4); AST(SGOT) 11 U/L (15-37); Alanine Aminotransfer ALT/SGPT 20 U/L (13-56); Alkaline Phosphatase 57 U/L (45-117); Anion Gap 2 (5-15); BUN 12 mg/dL (7-18); BUN/Creat Ratio 21.5 RATIO (10-20); Calcium,Total 8.9 mg/dL (8.5-10.1); Chloride 106 mmol/L (98-107); Creatinine, Serum 0.56 mg/dL (0.55-1.02); EST Glomerular Filtration Rate 131 mL/min (>60); Est Glom Filt Rate - Afr Amer 159 mL/min (>60); Globulin 3.9 g/dL (2.2-4.2); Glucose 80 mg/dL (74-106); Lipase 65 U/L (73-393); Protein, Total 6.9 g/dL (6.4-8.2); Sodium Level 137 mmol/L (136-145)
[2022-02-10 12:23] VITALS: BP 111/58; PULSE 72; RESP 16; O2SAT 98
== END 2022-02-10 14:07 | disposition home or self-care (01) ==
PROVIDERS: Nurse Practitioner; Emergency Provider Emergency Medicine; Visit Provider Emergency Medicine
DX: O44.22 Partial placenta previa NOS or without hemorrhage, second trimester (principal); Z3A.14 14 weeks gestation of pregnancy; Z86.16 Personal history of COVID-19; O99.512 Diseases of the respiratory system complicating pregnancy, second trimester; J45.909 Unspecified asthma, uncomplicated; Z87.440 Personal history of urinary (tract) infections; Z87.891 Personal history of nicotine dependence; O34.82 Maternal care for other abnormalities of pelvic organs, second trimester; N83.202 Unspecified ovarian cyst, left side
CPT/HCPCS: 76770; 76816; 80053; 81001; 83690; 85025; 96361; 96374; 96375; 96376; 99283; J7030; A4216; J2405

== ENCOUNTER → 2022-03-17 | Outpatient (CLI) | payer BC, MEDICAID, SELFPAY ==
--- NOTE | 2022-03-17 07:49 | US_ITS ---
STUDY: SECOND AND THIRD TRIMESTER OBSTETRICAL ULTRASOUND REASON FOR EXAM: Female, 36 years old anatomy LMP: 11/03/2021. TECHNIQUE: Transabdominal and Transvaginal TECHNICAL QUALITY: Adequate. PRIOR ULTRASOUND: Comparison is made with prior study dated 02/10/2022. FINDINGS: There is a single intrauterine fetus. The fetus is in a cephalic presentation. There is demonstrated cardiac activity with a heart rate of 153 bpm. There is a normal amniotic fluid volume. The largest amniotic fluid pocket measures 4.5 cm x 2.6 cm. The amniotic fluid index (HALINA) is within normal limits. The placenta is posterior with a complete previa. There are Grade 0 placental changes. The cervix measures 4.3 cm in length. The bilateral adnexal regions are normal. BIOMETRY: BPD: 3.9 cm: 17 weeks, 6 days HC: 15.1 cm: 18 weeks, 0 days AC: 12.1 cm: 17 weeks, 5 days FL: 2.6 cm: 17 weeks, 4 days CI: 75% FL/BPD: 65% FL/HC: FL/AC: 21% HC/AC: 1.24 age by current US: 17 weeks, 6 days. OMKAR by current US: 08/19/2022. Estimated weight: 209 grams, +/- 31 grams, 2.6 %. age by prior US: 19 weeks, 4 days. OMKAR by prior US: 08/07/2022 Age by LMP: 19 weeks, 1 days. OMKAR by LMP: 08/10/2022. ANATOMY: Gender: Female Cranium: Normal lateral ventricles. Normal choroid plexus. Normal cerebellum. Normal cisterna magna. Normal face, nose and lips. Chest: Normal 4-chamber heart. Abdomen/Pelvis: Normal diaphragm. Normal stomach. Normal abdominal wall. Normal cord insertion. Limited visualization of the umbilical cord. Normal kidneys. Normal bladder. Spine: Normal cervical spine. Normal thoracic spine. Normal lumbar spine. Normal sacrum. Extremities: Normal bilateral upper extremities. Normal bilateral lower extremities. US/OB Anatomy Scan IMPRESSION: Complete posterior placenta previa. Single live uterine gestation with a mean gestational age of 19 weeks and 4 days. The measurements obtained today following thin to 2.6 percentile. Electronically Signed: Minesh Gonzales MD at 10:33 EDT ,
== END | disposition home or self-care (01) ==
LOC: OPUS 07:49
PROVIDERS: Visit Provider Obstetrics & Gynecology
DX: O09.512 Supervision of elderly primigravida, second trimester (principal); Z3A.00 Weeks of gestation of pregnancy not specified
CPT/HCPCS: 76805; 76817

== ENCOUNTER → 2022-05-22 | Outpatient (CLI) | payer BC, MEDICAID, SELFPAY ==
[2022-05-22 15:21] LABS: Absolute Lymphocyte Count 1.47 X10^3/uL (0.83-4.51); Absolute Neutrophil Count 7.7 X10^3/uL (2.0-7.7); Basophil# 0.02 X10^3/uL; Basophil% 0.2 % (0-1); Eosinophil# 0.06 X10^3/uL; Eosinophils% 0.6 % (0-5); Hematocrit 33.5 % (37-47); Hemoglobin 10.9 g/dL (12.0-15.0); Lymphocyte # 1.47 X10^3/ul (0.83-4.51); Lymphocyte % 14.9 % (19-41); Mean Corp Hgb Conc 32.5 g/dL (32-36); Mean Corpuscular Hgb 32.2 pg (27.0-32.0); Mean Corpuscular Volume 98.8 fL (81-99); Mean Platelet Vol. 9.1 fl (6.2-12.0); Monocyte# 0.62 X10^3/uL; Monocyte% 6.3 % (0-10); NRBC Flagged by Analyzer 0 % (0-5); Neutrophil # 7.66 X10^3/uL (2.7-7.7); Neutrophil % 77.5 % (47-70); Platelet Count 295 K/mm3 (150-450); RBC Distribution Width CV 12.9 % (11.6-14.6); RBC Distribution Width SD 45.9 fl (35.1-43.9); Red Blood Count 3.39 M/mm3 (4.2-5.4); White Blood Count 9.9 K/mm3 (4.4-11.0)
[2022-05-22 15:23] LABS: Glucose Challenge Gest 1H 50g 88 mg/dL (70-140)
== END | disposition home or self-care (01) ==
LOC: PAVLAB 14:28
PROVIDERS: Referring Provider Obstetrics & Gynecology; Visit Provider Obstetrics & Gynecology
DX: O09.521 Supervision of elderly multigravida, first trimester (principal)
CPT/HCPCS: 36415; 82950; 85025

== ENCOUNTER → 2022-07-25 | Outpatient (CLI) | payer BC, MEDICAID, SELFPAY ==
--- NOTE | 2022-07-25 13:20 | US_ITS ---
STUDY: OBSTETRICAL ULTRASOUND - BIOPHYSICAL PROFILE REASON FOR EXAM: Female, 36 years old. well being PRIOR ULTRASOUND: ... TECHNIQUE: Transabdominal TECHNICAL QUALITY: Adequate. FINDINGS: There is a single intrauterine fetus. The fetus is in a cephalic presentation. There is demonstrated cardiac activity with a heart rate of 148 bpm. There is a normal amniotic fluid volume. The largest amniotic fluid pocket measures 5.6 cm. The amniotic fluid index (HALINA) is 12.7 cm. The placenta is left lateral in location and is not low lying. There are Grade 2 placental changes. Age by LMP: 37 weeks, 5 days. OMKAR by LMP: ... age by current US: 37 weeks, 5 days. OMKAR by current US: .. . BIOPHYSICAL PROFILE: Breathing Movements (FBM): 2 Gross Body Movements (GBM): 2 Tone (FT): 2 Amniotic Fluid Volume (AFV): 2 TOTAL SCORE: 8 / US/Biophysical Prof W/O Non Stres IMPRESSION: Normal biophysical profile of 02/27. There is a single live intrauterine with a heart rate of 148 bpm. Electronically Signed: Louis Waldron MD at 14:52 EST ,
== END | disposition home or self-care (01) ==
PROVIDERS: Visit Provider Obstetrics & Gynecology
DX: O09.219 Supervision of pregnancy with history of pre-term labor, unspecified trimester (principal); Z3A.37 37 weeks gestation of pregnancy
CPT/HCPCS: 76819

== ENCOUNTER 2022-07-27 06:54 | Inpatient (IN) | payer BC, MEDICAID, SELFPAY ==
[2022-07-27] VITALS (49 sets, daily range): BP systolic 89–140; BP diastolic 52–81; PULSE 71–109; TEMP 36.3–37.1; O2SAT 83–100; BMI 26.9
--- NOTE | 2022-07-27 07:27 | HP.PCM.OB_ITS ---
HPI - General General Date of Admission: 07/27/22 HPI Narrative MELANIE BLAIR, is a 36 F who presents for iol iugr no v blof good fm no regular ctx. Maternal Data Information OMKAR Calculator Estimated Delivery Date Method Current WG Current Estimate 08/10/22 Ultrasound #1 38w 0d PFSH PFSH Medical History Alcohol use Anemia Anemia affecting Anxiety Asthma Back pain Chest pain Encounter for insertion of mirena IUD Frequency of micturition History of COVID-19 History of edema Hypertension IUGR (intrauterine growth restriction) Leg cramps Restless legs Smoker Syncope Urgency of micturition Urinary tract infection Wears glasses Home Medications vitamin#30 30 mg iron-10 mg iron-folic acid 1 mg-omg3 capsule 1 cap PO DAILY Check with primary doctor 03/03/20 [History Last Taken 09/18/21] albuterol (refill) 90 mcg/actuation aerosol inhaler 90 mcg inhalation PRN PRN ASTHMA 09/12/21 [History Last Taken 09/18/21] lactobacillus combination no.4 3 billion cell capsule (Probiotic) 3,000 mmu cells PO DAILY 09/12/21 [History Last Taken 09/18/21] magnesium oxide 500 mg capsule 500 mg PO DAILY 01/04/22 [History Last Taken Unknown] potassium 99 mg tablet 99 mg PO DAILY 02/10/22 [History Last Taken Unknown] enoxaparin 40 mg/0.4 mL subcutaneous syringe (Lovenox) 40 mg (0.4 mL) subcut QDAY 30 days #12 mL 04/14/22 [Rx Last Taken Unknown] ondansetron 4 mg disintegrating tablet 4 mg PO Q8H PRN nausea and vomiting #30 tabs 05/08/22 [Rx Last Taken Unknown] Allergy/AdvReac Type Severity Reaction Status Date / Time latex Allergy Severe Hives Verified 07/21/22 08:13 coconut Allergy Mild Rash Verified 07/21/22 08:13 Penicillins Allergy Mild Hives Verified 07/21/22 08:13 Sulfa (Sulfonamide Allergy Fever and Verified 07/21/22 08:13 Antibiotics) skin rash clarithromycin [From Biaxin] AdvReac Severe Vomiting Verified 07/21/22 08:13 Family History Father Diabetes Heart disease Hypertension Hyperlipidemia Surgical History H/O rotator cuff surgery History of wisdom tooth extraction, class II edentulism Hx of appendectomy Social History household members: spouse Smoking Status: Former smoker Electronic Cigarette Use: with nicotine alcohol intake: never do you feel safe at home: Yes 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 Date Name GA/Weeks Outcome Route Bth Weight Gen Labor Lgth Anesthesia Del Locatn Provider FOB Unknown 2009 Earl 40 live - full term 8lbs 6oz Male 18 epidural [facility] Doroteo Unknown 2015 Yang 38 live - full term 8lbs 11oz Male 19 none [facility] Seals Unknown 2018 Devonte 36 live - 6lbs 1oz Male 16 no ne Yogesh Roslyn 09/29/20 López 38 live - full term 7lbs 15oz Male [facility] [place] Delivery Date: Last Updated by: Sonia Snell 4th degree perineal laceration Delivery Date: Last Updated by: Sonia Snell induction at 38w large for gestational age, stalled at 8cm Delivery Date: Last Updated by: Sonia Snell PPROM at 36w, transverse Delivery Date: 09/29/20 Last Updated by: Chanell Chiu admitted in [facility]. uncomplicated vaginal delivery Visit Details Expected Delivery Route/Plan Labor Preferences- CB/BF classes: not labor support person: no labor intervention preferences: [] pain management options preferred: epidural cut cord/dad catch: yes : yes PP control planned: [] discussed possible routes of delivery and associated risks: [] special requests: [] Plans Covid status: discussed Flu vaccine: discussed will obtain Tdap vaccine: accepts Rhogam: na LARC form signed: declined movement and labor precautions reviewed. Problem list reviewed and updated with the most current plan of care details and appropriate orders placed. Relevant counseling for the gestational age provided. Continue routine care and follow up unless otherwise noted in visit notes/problem list details OB Flowsheet Initial Weight: Not Recorded Date -?-?-?-?-?-?-?-?-?-?-?-?- EGA Weight BP Urine Prot -?-?-?-?-?-?-?-?-?-?-?-?- Glucose FHR FuHt Pres Dilation -?-?-?-?-?-?-?-?-?-?-?-?- Effaced St Visit Note 01/04/22 -?-?-?-?-?-?-?-?-?-?-?-?- 8w 6d 89.925 kg 134/74 -?-?-?-?-?-?-?-?-?-?-?-?- -?-?-?-?-?-?-?-?-?-?-?-?- JV- CRL consiten t with prior ultrasound done at [facility]. 8w6d today by last ultrasound. 9w1d on scan today. OMKAR 08/10/22 01/30/22 -?-?-?-?-?-?-?-?-?-?-?-?- 12w 4d 92.986 kg 119/73 -?-?-?-?-?-?-?-?-?-?-?-?- 160 -?-?-?-?-?-?-?-?-?-?-?-?- SM- no vb crampi ng labs drawn today 02/27/22 -?-?-?-?-?-?-?-?-?-?-?-?- 16w 4d 93.61 kg 110/64 Negativ e -?-?-?-?-?-?-?-?-?-?-?-?- Negative 161 -?-?-?-?-?-?-?-?-?-?--?-?- MH-No further sp otting since ED visit 2 wk ago. Feeling flutters. Anatomy US 03/1705/08/22 -?-?-?-?-?-?-?-?-?-?-?-?- 26w 4d 93.894 kg 106/76 Negati ve -?-?-?-?-?-?-?-?-?-?-?-?- Negative 150 -?-?-?-?-?-?-?-?-?-?-?-?- SM- no vb lof go od fm no regular ctx 05/22/22 -?-?-?-?-?-?-?-?-?-?-?-?- 28w 4d 93.95 kg 119/81 -?-?-?-?-?-?-?-?-?-?-?-?- 150 28 -?-?-?-?-?-?-?-?-?-?-?-?- LC- had ultrasou nd with MFM. no lof,vb, ctx. good fm. LC- had ultrasound with MFM. no lof,vb, ctx. good fm. tdap and flu today. 06/09/22 -?-?-?-?-?-?-?-?-?-?-?-?- 31w 1d 93.157 kg 118/76 Negati ve -?-?-?-?-?-?-?-?-?-?-?-?- Negative 150 31 -?-?-?-?-?-?-?-?-?-?-?-?- SM- no vb lof go od fm n oreuglar ctx 06/21/22 -?-?-?-?-?-?-?-?-?-?-?-?- 32w 6d 94.914 kg 94.937 kg 110/64 Negative -?-?-?-?-?-?-?-?-?-?-?-?- Negative 148 31 -?-?-?-?-?-?-?-?-?-?-?-?- 0 MH-state s last week had 2 days of irreg CTX and vaginal spotting. Has all resolved. Good FM. Cx closed. Has growth US next week 07/03/22 -?-?-?-?-?-?-?-?-?-?-?-?- 34w 4d 93.894 kg 120/72 Negati ve -?-?-?-?-?-?-?-?-?-?-?-?- Negative 140 35 Breech -?-?-?-?-?-?-?-?-?-?-?-?- SM- no vb lof go od fm no regular ctx 07/11/22 -?-?-?-?-?-?-?-?-?-?-?-?- 35w 5d 94.347 kg 123/75 Negati ve -?-?-?-?-?-?-?-?-?-?-?-?- Negative 165 34 Breech -?-?-?-?-?-?-?-?-?-?-?-?- JV- no complaint s today. head to maternal right. She is ok with a version or a section. placenta is anterior but no longer considered low lying. She states she will play it by ear. return in a week. 07/21/22 -?-?-?-?-?-?-?-?-?-?-?-?- 37w 1d 93.157 kg 114/70 Negati ve -?-?-?-?-?-?-?-?-?-?-?-?- Negative 140 36 Cephalic 2 -?-?-?-?-?-?-?-?-?-?-?-?- 20 -2 SM- no vb lof good fm n oregular ctx discussed sterilization 07/27/22 -?-?-?-?-?-?-?-?-?-?-?-?- 38w 0d 118/78 -?-?-?-?-?-?-?-?-?-?-?-?- -?-?-?-?-?-?-?-?-?-?-?-?- NST FHR Rate Baby A Baseline: 130 Variability:: Moderate Accelerations:: 15 x 15 Decelerations:: None NST Reactive:: Yes FHR Category:: Category I Uterine Activity:: irregular ROS Constitutional Constitutional: Reports systems reviewed and no addt'l complaints, except as documented Eyes Eyes: Denies change in vision ENT HEENT: Reports systems reviewed and no addt'l complaints, except as documented; Denies headache(s) Cardiovascular Cardiovascular: Reports systems reviewed and no addt'l complaints, except as documented; Denies chest pain or dyspnea Respiratory/Chest Respiratory/Chest: Reports systems reviewed and no addt'l complaints, except as documented Gastrointestinal Gastrointestinal: Reports systems reviewed and no addt'l complaints, except as documented; Denies abdominal pain Genitourinary Genitourinary: Reports systems reviewed and no addt'l complaints, except as documented, contractions Details: present (irregular) and movement Details: present; Denies dysuria or genital lesions Musculoskeletal Musculoskeletal: Reports systems reviewed and no addt'l complaints, except as documented Neurologic Neurologic: Reports systems reviewed and no addt'l complaints, except as documented Endocrine Endocrinology: Reports systems reviewed and no addt'l complaints, except as documented Vital Signs Vital Signs Vital Signs: 07/27/22 07:22 07/27/22 07:22 07/27/22 07:22 Temperature 97.9 F Pulse Rate 109 H Blood Pressure 118/78 BP Systolic 118 BP Diastolic 78 Physical Exam Const alert, oriented x3, no apparent distress and healthy appearing HEENT normocephalic and moist oral mucous membranes Head and Scalp: atraumatic Neck full ROM, no lymphadenopathy, supple and thyroid normal General: trachea midline Lymph Lymphatic: no lymphadenopathy noted Chest inspection of chest normal Resp normal respiratory effort Cardio regular rate GI normal to inspection, nondistended, normoactive bowel sounds, soft to palpation and non-tender Inspection: gravid external exam normal Manual OB Exam: estimated gestational size appropriate, presentation cephalic, dilated, effaced and station Extremity normal to inspection General Extremity: Negative for edema Skin no rashes or lesions noted Neuro no focal motor deficits and deep tendon reflexes 2+ bilaterally Motor Exam: strength 5/5 throughout and clonus absent Psych mental status grossly normal Labs Labs Labs: Blood Type A POSITIVE Antibody Screen NEGATIVE Hct 33.5 % (37-47) L Hgb 10.9 g/dL (12.0-15.0) L Pap Smear Negative Obstetrics US Syphilis Total Ab Non-reactive Rubella IgG Antibody Reactive (Nonreactive) Hep Bs Antigen Non-Reactive (Nonreactive) Chlamydia DNA (OSMAN) Negative (Negative) Neisseria gonorrhoeae DNA (OSMAN) Negative (Negative) HIV 1&2 Antibody Non-Reactive (Nonreactive) Glucose 1 Hr 50 gm 88 mg/dL (70-140) Rhogam given: No Assessment & Plan (1) Sterilization: COMMENT: title 19 signed 06/21 (2) Anemia affecting : COMMENT: add iron (3) GBS (group B streptococcus) UTI complicating : (4) History of labor, current : COMMENT: h/o 36 week delivery with 3rd baby. does not want kamini. (5) : QUALIFIERS: Weeks of gestation: 37 weeks Qualified Code(s): Z3A.37 - 37 weeks gestation of COMMENT: NIPT low risk, Wants carrier. Anatomy US normal but growth percentile is 2.6%. Referred to M. improved growth, cont with q4 week growth scans. 05/22 growth nl 38% (6) AMA (advanced maternal age) multigravida 35+: COMMENT: growth q 4 weeks, initially IUGR but has resolved, has been on lovenox due to this though. EFW 26% (7) Supervision of high risk elderly multigravida in first trimester: COMMENT: PRR , girl, PC Yang Elliott Koda, Chase : [employer] (8) Anxiety with depression: COMMENT: counseling encouraged. (9) Encounter for induction of labor: PLAN: Plan Patient presents IOL, plan management for with pitocin/AROM. Pain management: plans epidural. GBS pos clinda. Management of any complications: iugr plan PPTL tomorrow I have reviewed the [facility] and made any clinically relevant updates.
[2022-07-27 07:53] LABS: Absolute Neutrophil Count 7.7 X10^3/uL (2.0-7.7); Basophil# 0.03 X10^3/uL; Basophil% 0.3 % (0-1); Eosinophil# 0.12 X10^3/uL; Eosinophils% 1.1 % (0-5); Hematocrit 36.2 % (37-47); Hemoglobin 11.9 g/dL (12.0-15.0); Lymphocyte % 17.5 % (19-41); Mean Corp Hgb Conc 32.9 g/dL (32-36); Mean Corpuscular Hgb 31.6 pg (27.0-32.0); Mean Corpuscular Volume 96.3 fL (81-99); Mean Platelet Vol. 9.7 fl (6.2-12.0); Monocyte# 0.94 X10^3/uL; Monocyte% 8.7 % (0-10); NRBC Flagged by Analyzer 0 % (0-5); Neutrophil # 7.73 X10^3/uL (2.7-7.7); Neutrophil % 71.4 % (47-70); Platelet Count 256 K/mm3 (150-450); RBC Distribution Width CV 13.9 % (11.6-14.6); RBC Distribution Width SD 48.9 fl (35.1-43.9); Red Blood Count 3.76 M/mm3 (4.2-5.4); White Blood Count 10.8 K/mm3 (4.4-11.0)
[2022-07-27] MEDS: Clindamycin 900 MG/50 ML BAG 75 MG IV ×3 (08:02→22:06)
[2022-07-27] MEDS: Lactated Ringers 1,000 ML 50 ML IV (08:03)
[2022-07-27] MEDS: LACTATED RINGERS 500 ML 999 ML IV ×3 (08:46→17:04)
[2022-07-27] MEDS: Oxytocin 15 Units/NS 250ml 15 UNITS/250 ML IV.SOLN 2 UNITS IV (08:47)
[2022-07-27] MEDS: fentaNYL-bupivacaine (epidural) 100 ML BAG EPIDURAL ×3 (09:41→19:18)
[2022-07-27] MEDS: Lactated Ringers 1,000 ML 200 ML IV ×3 (11:29→21:37)
[2022-07-27] MEDS: Amnioinfusion- 0.9% NS 1,000 ML IV.SOLN. 1000 ML INTRA-UTER (16:54)
--- NOTE | 2022-07-27 17:21 | PCM.PN.BLA ---
Progress Note recurrent variables resolved with position changes. baseline change tachycardia minimal to moderate variability. pitocin off and IVF bolus. has gush of wine colored fluid but positive scalp stimulation. cat II tracing, oxygen on and position changes. exp management, reviewed cs indications if needed.
[2022-07-27] MEDS: Acetaminophen 500 MG Tablet PO (22:06)
[2022-07-27] MEDS: 0.9% Saline Lock 10 ML Syringe IV (22:54)
[2022-07-27] MEDS: Ondansetron 4 MG/2 ML Vial IV (22:54)
[2022-07-28] VITALS (44 sets, daily range): BP systolic 92–128; BP diastolic 48–75; PULSE 79–102; RESP 15–18; TEMP 36.2–36.9; O2SAT 95–100
--- NOTE | 2022-07-28 | PLAC_PTH ---
PATIENT: MELANIE BLAIR LOC: WP U#:[id number] AGE/SX: 36/F ROOM: [facility] RE07/27/[address]: Dr. Carolina Goins MD : 1985 BED: 1 DIS: 07/29/2022 SPEC #: [id number] RECD: 07/28/22 07:12 STATUS: MYNOR VIDYA #: [id number] BEBETO: 07/28/22 00:[address]: Carolina Goins DEPT: SURGICAL PATHOLOGY RECD BY: Edenilson Haynes ENTERED: 07/28/22 10:41 SP TYPE: PLACENTA OTHR DR: No Primary Care Phys Tissues: Placenta, NOS Procedures: Surgery Specimen Level V HEADER OPERATION: Vaginal delivery PRE-OP DIAGNOSIS: Delivery TISSUE SUBMITTED: Placenta MICROSCOPIC DIAGNOSIS Pulido placenta (457 gm): Umbilical cord ? trivascular with no evidence of inflammation. Placental membranes ? mild chronic decidual inflammation. Placental disc ? Marisol-Valentino change, increased intraparenchymal fibrin plaques and minimal chronic decidual inflammation. AM:troy 08/01/2022 MICROSCOPIC DESCRIPTION Slides are reviewed. GROSS DESCRIPTION SPECIMEN: PLACENTA / CLINICAL INFORMATION: A. Weight: 2.435 kg B. Gestational Age: 38 weeks C. Sex: Female PLACENTAL WEIGHT (POST FIXATION): 457 gm PLACENTAL DIMENSIONS: 16 x 13 x 4 cm PLACENTAL SHAPE: Usual ovoid PLACENTAL WEIGHT FOR GESTATIONAL AGE: Within 10-99th percentile MEMBRANES - Present A. Insertion: Marginal. They are inserted in one-third surface of placenta 3 cm away from the margin. B. Site of rupture from edge: At edge of placental disc C. Color of membrane: Florentino-navarro D. Abnormalities: None UMBILICAL CORD - Present A. Color: Florentino-navarro B. Insertion: Paracentral C. Length: 32 cm D. Diameter: 1.1 cm E. Number of vessels: Three F. Abnormalities: None PLACENTAL DISC - Present A. Color of surface: Florentino-navarro B. surface abnormalities: None C. Maternal cotyledons: Intact with minimal tears D. Attached retro placental clot: A small amount of blood clots are noted adherent surface of the placenta. E. Cut surface: Dark red and spongy F. Lesions: None G. Separate clot: Absent SECTIONS SUBMITTED: 1. Membrane roll 2. Cord, maternal end, insertion of membrane away from the margin 3. Cord, end, insertion of membrane away from the margin 4. Placental disc, and maternal surfaces 5. Placental disc, and maternal surfaces 6. Placental disc, and maternal surfaces SJ:troy 07/31/2022 TC:3 CPT: 72860
[2022-07-28] MEDS: fentaNYL-bupivacaine (epidural) 100 ML BAG EPIDURAL (00:30)
[2022-07-28] MEDS: Oxytocin 15 Units/NS 250ml 15 UNITS/250 ML IV.SOLN 83 UNITS IV (03:05)
--- NOTE | 2022-07-28 03:10 | OP.PCM_ITS ---
Assessment & Plan (1) Encounter for induction of labor: (2) Sterilization: COMMENT: title 19 signed 06/21 (3) Anemia affecting : COMMENT: add iron (4) GBS (group B streptococcus) UTI complicating : (5) History of labor, current : COMMENT: h/o 36 week delivery with 3rd baby. does not want kamini. (6) : QUALIFIERS: Weeks of gestation: 37 weeks Qualified Code(s): Z3A.37 - 37 weeks gestation of COMMENT: NIPT low risk, Wants carrier. Anatomy US normal but growth percentile is 2.6%. Referred to [facility]. improved growth, cont with q4 week growth scans. 05/22 growth nl 38% (7) AMA (advanced maternal age) multigravida 35+: COMMENT: growth q 4 weeks, initially IUGR but has resolved, has been on lovenox due to this though. EFW 26% (8) Supervision of high risk elderly multigravida in first trimester: COMMENT: PRR , girl, PC Yang Elliott Koda, Chase : Avtar (9) Anxiety with depression: COMMENT: counseling encouraged. (10) Vaginal delivery: COMMENT: SM 38 IOL IUGR girl Yeimi (11) IUGR (intrauterine growth restriction): COMMENT: 04/24 resolved, AC 13% EFW 24%,growth every 4 wks. on lovenox per [facility] Maternal Data Information OMKAR Calculator Estimated Delivery Date Method Current Current Estimate 08/10/22 Ultrasound #1 38w 1d Vaginal Delivery Operative Information Date of Procedure: 07/28/22 Pre-Operative Diagnosis: IOL IUGR Post-Operative Diagnosis: same Surgery / Procedure Performed: Spontaneous Vaginal Delivery Type of Anesthesia: Epidural Special Medications: none Estimated Blood Loss: 200 Fluids Replaced: crystalloid Findings Description of Procedure: Patient began to feel pressure and when the nurse went to examine her the head had already delivered spontaneously on its own OP and without any maternal effort the rest of the baby delivered spontaneously without complication with the nurse present. Cord was clamped and cut and the infant was placed on the maternal abdomen. Arrived and gentle traction was applied to the cord and the placenta delivered spontaneously immediately following it was noted to be intact with three-vessel cord. The perineum and vagina were inspected and noted to have no laceration. EBL was 200. Patient and tolerated delivery well. Presentation: NIA Amniotic Membrane Rupture Type: Artificial Amniotic Fluid Description: Clear Placental Delivery Description: Spontaneous Placenta Disposition: [facility] Cord Vessel Description: 3 Vessels Cord Entanglement: None Delayed Cord Clamping: Yes Post Vaginal Delivery Medications Given After Delivery: IV Pitocin Episiotomy Description: None Laceration: None Complication Complications: None Procedures Urinary/Genital [id number]: [id number] Vaginal Delivery [facility]
--- NOTE | 2022-07-28 03:15 | DCINST_ITS ---
Discharge Instructions Diet Discharge Diet: No restrictions Activity Discharge Activity: Return to Normal Activity, May Drive, May Shower and May Take a Tub Bath (in 4 weeks) May resume sexual activity in: 6-8 weeks (after seen by OB provider) Weight Bearing Status: Full weight bearing Lifting Restrictions: none Dressing / Incision Call your doctor if you observe: Fever of 101 or Higher, Inability to urinate, Using more than 1 pad per hour (for more than 2 hours in a row or more), Shortness of breath, Dizziness, Chest pain and - (headache not controlled with tylenol, change in vision) Follow Up Care When: in 6 weeks for visit, call the office to make the appointment. If you had elevated blood pressures call the office to be seen within 1 week. Test Results: Test results from this visit will be discussed in further detail at your follow- up appointment, if applicable. Discharge Plan Admission Admit Date/Time: 07/27/22 06:54 Attending Provider: Carolina Goins Primary Care Provider: Care PhysicianMarii Primary Discharge Orders/Prescriptions Prescriptions: Continued vitamin#30 30 mg iron-10 mg iron-folic acid 1 mg-omg3 capsule 30 mg iron-10 mg iron-1 mg capsule 1 cap PO DAILY magnesium oxide 500 mg capsule 500 mg PO DAILY ondansetron 4 mg tablet,disintegrating 4 mg PO Q8H PRN (Reason: nausea and vomiting) Qty: 30 3RF Probiotic 3 billion cell Capsule 3,000 mmu cells PO DAILY albuterol (refill) 90 mcg/actuation Aerosol 90 mcg INHALATION PRN PRN (Reason: ASTHMA) potassium 99 mg Tablet 99 mg PO DAILY Discontinued enoxaparin [Lovenox] 40 mg/0.4 mL syringe 40 mg subcut QDAY MDD family hx blood clots Referrals / Follow Up: Care Physician,No Primary [Primary Care Provider] - Disposition Disposition (needs filled in before D/C Order can be placed): Home, Self Care
[2022-07-28] MEDS: Lactated Ringers 1,000 ML 125 ML IV (03:18)
[2022-07-28 07:14] LABS: Pathology Specimen OB SEE PATHOLOGY REPORT
--- NOTE | 2022-07-28 07:42 | PCM.OPRPT ---
Problems Associated Problem List Diagnoses (1) Vaginal delivery: (2) Sterilization: (3) Anxiety with depression: Report of Operation Date of Procedure: 07/28/22 Pre-Operative Diagnosis: sterilization Post-Operative Diagnosis: same Surgery/Procedure Performed:: tubal ligation filshie clips Description of Surgical Findings:: nl tubes and ovaries Surgeon: Carolina Goins glass forming engineer: None glass forming engineer: Kymberly Turner Type of Anesthesia: Spinal/Supplemental Special Medications: none Specimen's removed: none Drains: none Estimated Blood Loss (mL): 50 Fluids Replaced: crystalloid Description of Procedure: Patient was taken to the operating room and spinal anesthesia was plaed and found to be adequate. Patient was placed in the dorsal supine position was prepped and draped in normal sterile fashion. Choudhury catheter was used to drain the bladder. Infra umbilical incision was made with a scalpel after injecting with marcaine and carried through the underlying layer of the fascia with a scalpel fascial incision was extended bilaterally with Mc scissors and bowel packed away and the right fallopian tube identified confirmed to be fallopian tube by following it out to the fimbria and a Filshie clip was applied in the mid interstitial portion of the fallopian tube noting to completely transect the tube. This was repeated on the left side where the tube was identified and followed out to the fimbria and confirmed to be fallopian tube and then the mid interstitial portion of the tube was completely transected with the Filshie clip. Excellent hemostasis was noted. Fascia was closed with 0 Vicryl and skin closed with 3-0 Monocryl. No complications. Patient was taken recovery in stable condition. Grafts/Implants Used: none Complications none Admit VTE Documentation VTE Present on Admission: No VTE Mechan Device Prophylaxis: SCD's Multi Select Codes Urinary/Genital Urinary/Genital CPT Codes: 22422 PPTL
[2022-07-28] MEDS: Bupivacaine Mpf 0.5% 30 ML VIAL (08:16)
[2022-07-28] MEDS: Lactated Ringers 1,000 ML 15 ML IV (09:00)
--- NOTE | 2022-07-28 09:26 | NURSING ---
Pt. left room for tubal ligation at 0731.
[2022-07-28] MEDS: Ketorolac 10 MG Tablet PO ×2 (10:42→20:16)
[2022-07-28] MEDS: Acetaminophen 500 MG Tablet 1000 MG PO ×2 (14:24→22:39)
[2022-07-29 00:14] VITALS: BP 104/55; PULSE 84; RESP 16; TEMP 36.4
[2022-07-29 03:31] VITALS: BP 114/68; PULSE 80; RESP 16; TEMP 36.4
[2022-07-29] MEDS: Ketorolac 10 MG Tablet PO (06:59)
--- NOTE | 2022-07-29 08:10 | PCM.PN.OB ---
Subjective Subjective Patient doing well without complaints. Tolerating PO. Ambulating and voiding without difficulty. feeding well. Denies chest pain, shortness of breath, calf pain/swelling, fevers, chills, lightheadedness. Objective Data Objective Data Vital Signs: Vital Signs Temp Pulse Resp BP Pulse Ox O2 Del Method 97.6 F L 80 16 114/68 96 Room Air 07/29/22 03:31 07/29/22 03:31 07/29/22 03:31 07/29/22 03:31 07/28/22 10:33 07/28/22 16:35 Oxygen Delivery Method Room Air Weight: 93.7 kg Body Mass Index (BMI) 26.9 Intake & Output: Intake and Output for Last 24 Hours 07/27/22 07/28/22 07/29/22 23:59 23:59 23:59 Intake Total 4227.01 / 4227.01 1809.55 / 1809.55 Output Total 400 / 400 3850 / 3850 Balance 3827.01 / 3827.01 -2040.45 / -2040.45 Lab / Micro Data Result Diagrams: 07/27/22 07:40 ROS Constitutional Constitutional: Reports systems reviewed and no addt'l complaints, except as documented Cardiovascular Cardiovascular: Reports systems reviewed and no addt'l complaints, except as documented Respiratory/Chest Respiratory/Chest: Reports systems reviewed and no addt'l complaints, except as documented Gastrointestinal Gastrointestinal: Reports systems reviewed and no addt'l complaints, except as documented Physical Exam Const alert, oriented x3 and no apparent distress HEENT Head and Scalp: atraumatic Resp normal respiratory effort GI soft to palpation and non-tender Bimanual Exam - Vag & Uterus: uterus non-tender Uterus Palpation: uterus fundus firm (below Umbilicus) Assessment & Plan (1) Vaginal delivery: COMMENT: SM 38 IOL IUGR girl Yeimi (2) Sterilization: COMMENT: title 19 signed 06/21 PLAN: Plan s/p PPD # 1 1. routine post delivery care 2. breast feeding- support given 3. rh positive 4. rubella immune
[2022-07-29 09:03] VITALS: BP 105/53; PULSE 75; RESP 14; TEMP 36.4; O2SAT 96
[2022-07-29 13:17] VITALS: BP 117/68; PULSE 78; RESP 14; TEMP 36.5; O2SAT 100
== END 2022-07-29 15:05 | disposition home or self-care (01) | DRG 798 ==
PROVIDERS: Admitting Provider Obstetrics & Gynecology; Referring Provider Obstetrics & Gynecology; Visit Provider Obstetrics & Gynecology
PROC: 0UL70ZZ Occlusion of Bilateral Fallopian Tubes, Open Approach (ICD-10-PCS; principal; 2022-07-28 07:15)
DX: O76 Abnormality in fetal heart rate and rhythm complicating labor and delivery (principal); Z37.0 Single live birth; O36.5930 Maternal care for other known or suspected poor fetal growth, third trimester, not applicable or unspecified; F32.A Depression, unspecified; F41.9 Anxiety disorder, unspecified; O99.02 Anemia complicating childbirth; O99.344 Other mental disorders complicating childbirth; O99.824 Streptococcus B carrier state complicating childbirth; Z3A.38 38 weeks gestation of pregnancy; Z87.59 Personal history of other complications of pregnancy, childbirth and the puerperium; Z86.16 Personal history of COVID-19; Z87.891 Personal history of nicotine dependence; Z30.2 Encounter for sterilization
CPT/HCPCS: 59025; 59050; 85025; 86850; 86900; 86901; 88307; 99221; 99406; J7030; J7120; A4216; G0378; J2405

== ENCOUNTER → 2022-09-08 | Outpatient (CLI) | payer BC, MEDICAID, SELFPAY ==
--- NOTE | 2022-09-08 11:25 | VDLE_ITS ---
Reason For Study: LEG SWELLING RIGHT LEFT GSV is normal. CFV is compressible, spontaneous, phasic, CFV is compressible, spontaneous, phasic, competent, and demonstrates normal competent and demonstrates normal augmentation. augmentation. FV is compressible, spontaneous, phasic, competent and demonstrates normal augmentation. POP V is compressible, spontaneous, phasic, competent and demonstrates normal augmentation. T/P Trunk is compressible. PTV is compressible. RT PerV is compressible. Procedure This is a venous duplex using B-mode, color flow and spectral Doppler. Exam performed in department. The exam was diagnostic. A preliminary report was called and/or faxed to Carol louis RN at Dr. Goins's office. VL/Venous Duplex US, Unilateral Interpretation Summary There is no evidence of right lower extremity deep vein thrombosis. Right great saphenous vein appears patent and compressible segmentally. Normal flow patterns left common f emoral vein Ordering Physician: Carolina Goins Referring Physician: Carolina Goins Performed By: Jay Champagne RVT
[2022-09-08 13:47] LABS: T4 Free Direct 0.89 ng/dL (0.76-1.46); Thyroid Stim Hormone (TSH) 1.36 uIU/mL (0.358-3.74)
[2022-09-09 10:46] LABS: Thyroid Peroxidase AB 25 IU/mL (0-34)
== END | disposition home or self-care (01) ==
PROVIDERS: Referring Provider Obstetrics & Gynecology; Visit Provider Obstetrics & Gynecology
DX: E01.0 Iodine-deficiency related diffuse (endemic) goiter (principal); M79.89 Other specified soft tissue disorders
CPT/HCPCS: 36415; 84439; 84443; 86376; 93971

== ENCOUNTER → 2022-09-13 | Outpatient (CLI) | payer BC, MEDICAID, SELFPAY ==
--- NOTE | 2022-09-13 11:25 | US_ITS ---
STUDY: THYROID ULTRASOUND REASON FOR EXAM: Female, 36 years old. Enlarged thyroid TECHNIQUE: Ultrasound evaluation of the thyroid was performed with real-time and static navarro-scale imaging. COMPARISON: None. FINDINGS: RIGHT LOBE: The right lobe of the thyroid gland is enlarged and measures 6.1 cm x 2.2 cm x 1.8 cm. There is a homogeneous echotexture. There are no demonstrated solid, cystic or complex lesions. LEFT LOBE: The left lobe of the thyroid gland measures 4.8 cm x 1.8 cm x 1.4 cm. There is a homogeneous echotexture. There are no demonstrated solid, cystic or complex lesions. ISTHMUS: The isthmus measures 4.7 mm. The regional lymph nodes are normal. US/Thyroid IMPRESSION: Enlarged right lobe of the thyroid. No focal lesion is seen. Electronically Signed: Minesh Gonzales MD at 15:38 EST ,
== END | disposition home or self-care (01) ==
LOC: US 11:23
PROVIDERS: Referring Provider Obstetrics & Gynecology; Visit Provider Obstetrics & Gynecology
DX: E01.0 Iodine-deficiency related diffuse (endemic) goiter (principal)
CPT/HCPCS: 76536

== ENCOUNTER 2023-09-29 18:31 | Emergency (ER) | payer BC, SELFPAY ==
[2023-09-29 18:32] VITALS: BP 132/80; PULSE 85; RESP 18; TEMP 36; O2SAT 100; BMI 27.6
--- NOTE | 2023-09-29 18:37 | EKG12_ITS ---
Test Reason : CP Blood Pressure : / mmHG Vent. Rate : 073 BPM Atrial Rate : 073 BPM P-R Int : 142 ms QRS Dur : 076 ms QT Int : 386 ms P-R-T Axes : 039 013 057 degrees QTc Int : 425 ms Normal sinus rhythm Possible Left atrial enlargement Borderline ECG Confirmed by Martinez Guzman ([id number]), food expeditor REI RIBEIRO ([id number]) on 10/02/2023 8:15:32 AM Referred By: Confirmed By:Martinez Guzman
--- NOTE | 2023-09-29 19:05 | EDS_ITS ---
<Statement entered by Wanda Murphy MD - 09/29/23 21:23> I have personally performed a face to face assessment of the patient and have reviewed the WOLF Note. Patient presents secondary to sharp intermittent right sided chest pain for the past 3 days. She has a history of prior DVT and placental clots during and is concerned for possible PE. She has family history of PE as well. No recent cough or congestion. Patient sitting upright in bed no acute distress. She is anxious but in no distress. Head and neck examination unremarkable. Heart is regular rate and rhythm. Lung sounds are clear. Chest wall exam reveals reproducible tenderness in the right anterior chest. No crepitus. Abdomen is soft and nontender. Neuro exam is unremarkable. Lower extremity examination feels no obvious edema or tenderness. EKG is sinus rhythm with no evidence of ischemia. Portable chest x-ray per my interpretation reveals no obvious abnormalities. Lab work is unremarkable including negative troponin and D-dimer. Patient is reassured with these findings. She will continue supportive care. Return instructions given. HPI History of Present Illness Chief Complaint: Chest Pain Narrative Narrative: Patient is a 37-year-old female with history of DVT of the right lower extremity, thrombus to the placenta during her last which was 1 year ago. Patient does have history of having a tubal ligation, presenting to the emergency department 3 days of sharp right-sided chest pain worse with inspiration. Patient states it started 3 days ago, she denies any trauma, she denies any coughing or fever or chills. Patient states that she became more anxious about this pain as ago some sharp to dull, she is here for evaluation. She denies any recent travel, shows any recent surgeries. [facility] Medical History Alcohol use Anemia Anemia affecting Anxiety Asthma Back pain Chest pain Encounter for insertion of mirena IUD Frequency of micturition History of COVID-19 History of edema Hypertension IUGR (intrauterine growth restriction) Leg cramps Restless legs Smoker Sterilization Syncope Urgency of micturition Urinary tract infection Vaginal delivery Wears glasses Home Medications magnesium oxide 500 mg capsule 500 mg PO DAILY 01/04/22 [History Last Taken 07/26/22 20:00 500 mg] potassium 99 mg tablet 99 mg PO DAILY 02/10/22 [History Last Taken 07/26/22 20:00 99 mg] meloxicam 15 mg tablet 15 mg PO DAILY 09/29/23 [History Last Taken Unknown] Allergy/AdvReac Type Severity Reaction Status Date / Time latex Allergy Severe Hives Verified 09/29/23 18:32 coconut Allergy Mild Rash Verified 09/29/23 18:32 Sulfa (Sulfonamide Allergy Fever and Verified 09/29/23 18:32 Antibiotics) skin rash clarithromycin [From Biaxin] AdvReac Severe Vomiting Verified 09/29/23 18:32 Family History Father Diabetes Heart disease Hypertension Hyperlipidemia Surgical History H/O rotator cuff surgery History of wisdom tooth extraction, class II edentulism Hx of appendectomy Social History household members: spouse Smoking Status: Former smoker Electronic Cigarette Use: with nicotine alcohol intake: never do you feel safe at home: Yes 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 Positive for right- sided chest pain, worse with inspiration Respiratory: Negative for any cough, sputum production, hemoptysis, dyspnea, dyspnea on exertion, orthopnea Gastrointestinal: Negative for any abdominal pain, nausea, vomiting, diarrhea, constipation, blood in stool, blood in vomit : Negative for any urinary frequency, dysuria, retention, blood in urine Muscle skeletal: Negative for any neck pain, back pain Neurological: Negative for any headache, syncope, dizziness Skin: Negative for any rashes, itching, abrasions, lacerations Psychiatric: Negative for any depression, anxiety, stress, suicidal ideation, homicidal ideation Hematologic: Negative for any excessive bruising, easy bleeding EXAM Physical Exam Narrative Exam Narrative: Vital signs reviewed. Patient looks slightly anxious however is no obvious distress. HEET: Head normocephalic atraumatic, TMs clear bilaterally. Posterior pharynx is clear, moist mucous membranes. Nares clear bilaterally. Neck: Supple with no lymphadenopathy or tenderness. No signs of meningismus. Cardiac: Regular rate and rhythm no murmurs gallops or rubs, equal peripheral pulses bilaterally. Respiratory: Lungs clear to auscultation bilaterally. Patient did have some pain on palpation to the right anterior chest. Worsening pain with inspiration. Abdomen: Soft, nontender, nondistended. No abdominal bruit or pulsatile masses. No hepatosplenomegaly Extremities: No peripheral edema, no signs of gross trauma or deformity. Active full range of motion of all extremities. Neuro: Cranial nerves II through XII intact, no focal neurological deficits. Skin: Clean dry and intact with no rash, purpura, petechiae, vesicles or pustules. Backs/flank: No CVA tenderness, no midline spinal tenderness, no deformity. Psych: Normal mood and affect. No SI, HI or acute psychosis. Const Vital Signs: 09/29/23 18:32 09/29/23 19:10 09/29/23 19:11 Temperature 96.8 F L Temperature Source Temporal Pulse Rate 85 73 Respiratory Rate 18 16 Respiratory Effort Respiratory Depth Respiratory Pattern Blood Pressure 132/80 H Blood Pressure Mean 97 Pulse Ox 100 100 100 Oxygen Delivery Method Room Air Room Air Room Air 09/29/23 19:16 Temperature Temperature Source Pulse Rate Respiratory Rate Respiratory Effort Normal Respiratory Depth Normal Respiratory Pattern Normal Blood Pressure Blood Pressure Mean Pulse Ox Oxygen Delivery Method Room Air Positive well nourished and well developed General Appearance ED: well developed MDM MDM Lab Data Labs: Laboratory Results - last 24 hr
--- NOTE | 2023-09-29 19:05 | EX.ED.DYSGE1 ---
HPI History of Present Illness Chief Complaint: Chest Pain Narrative Narrative: Patient is a 37-year-old female with history of DVT of the right lower extremity, thrombus to the placenta during her last which was 1 year ago. Patient does have history of having a tubal ligation, presenting to the emergency department 3 days of sharp right-sided chest pain worse with inspiration. Patient states it started 3 days ago, she denies any trauma, she denies any coughing or fever or chills. Patient states that she became more anxious about this pain as ago some sharp to dull, she is here for evaluation. She denies any recent travel, shows any recent surgeries. [facility] Medical History Alcohol use Anemia Anemia affecting Anxiety Asthma Back pain Chest pain Encounter for insertion of mirena IUD Frequency of micturition History of COVID-19 History of edema Hypertension IUGR (intrauterine growth restriction) Leg cramps Restless legs Smoker Sterilization Syncope Urgency of micturition Urinary tract infection Vaginal delivery Wears glasses Home Medications magnesium oxide 500 mg capsule 500 mg PO DAILY 01/04/22 [History Last Taken 07/26/22 20:00 500 mg] potassium 99 mg tablet 99 mg PO DAILY 02/10/22 [History Last Taken 07/26/22 20:00 99 mg] meloxicam 15 mg tablet 15 mg PO DAILY 09/29/23 [History Last Taken Unknown] Allergy/AdvReac Type Severity Reaction Status Date / Time latex Allergy Severe Hives Verified 09/29/23 18:32 coconut Allergy Mild Rash Verified 09/29/23 18:32 Sulfa (Sulfonamide Allergy Fever and Verified 09/29/23 18:32 Antibiotics) skin rash clarithromycin [From Biaxin] AdvReac Severe Vomiting Verified 09/29/23 18:32 Family History Father Diabetes Heart disease Hypertension Hyperlipidemia Surgical History H/O rotator cuff surgery History of wisdom tooth extraction, class II edentulism Hx of appendectomy Social History household members: spouse Smoking Status: Former smoker Electronic Cigarette Use: with nicotine alcohol intake: never do you feel safe at home: Yes 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 Positive for right-sided chest pain, worse with inspiration Respiratory: Negative for any cough, sputum production, hemoptysis, dyspnea, dyspnea on exertion, orthopnea Gastrointestinal: Negative for any abdominal pain, nausea, vomiting, diarrhea, constipation, blood in stool, blood in vomit : Negative for any urinary frequency, dysuria, retention, blood in urine Muscle skeletal: Negative for any neck pain, back pain Neurological: Negative for any headache, syncope, dizziness Skin: Negative for any rashes, itching, abrasions, lacerations Psychiatric: Negative for any depression, anxiety, stress, suicidal ideation, homicidal ideation Hematologic: Negative for any excessive bruising, easy bleeding EXAM Physical Exam Narrative Exam Narrative: Vital signs reviewed. Patient looks slightly anxious however is no obvious distress. HEET: Head normocephalic atraumatic, TMs clear bilaterally. Posterior pharynx is clear, moist mucous membranes. Nares clear bilaterally. Neck: Supple with no lymphadenopathy or tenderness. No signs of meningismus. Cardiac: Regular rate and rhythm no murmurs gallops or rubs, equal peripheral pulses bilaterally. Respiratory: Lungs clear to auscultation bilaterally. Patient did have some pain on palpation to the right anterior chest. Worsening pain with inspiration. Abdomen: Soft, nontender, nondistended. No abdominal bruit or pulsatile masses. No hepatosplenomegaly Extremities: No peripheral edema, no signs of gross trauma or deformity. Active full range of motion of all extremities. Neuro: Cranial nerves II through XII intact, no focal neurological deficits. Skin: Clean dry and intact with no rash, purpura, petechiae, vesicles or pustules. Backs/flank: No CVA tenderness, no midline spinal tenderness, no deformity. Psych: Normal mood and affect. No SI, HI or acute psychosis. Const Vital Signs: 09/29/23 18:32 09/29/23 19:10 09/29/23 19:11 Temperature 96.8 F L Temperature Source Temporal Pulse Rate 85 73 Respiratory Rate 18 16 Respiratory Effort Respiratory Depth Respiratory Pattern Blood Pressure 132/80 H Blood Pressure Mean 97 Pulse Ox 100 100 100 Oxygen Delivery Method Room Air Room Air Room Air 09/29/23 19:16 Temperature Temperature Source Pulse Rate Respiratory Rate Respiratory Effort Normal Respiratory Depth Normal Respiratory Pattern Normal Blood Pressure Blood Pressure Mean Pulse Ox Oxygen Delivery Method Room Air Positive well nourished and well developed General Appearance ED: well developed MDM MDM Lab Data Labs: Laboratory Results - last 24 hr 09/29/23 18:55 WBC 8.8 RBC 4.22 Hgb 12.6 Hct 39.8 MCV 94.3 MCH 29.9 MCHC 31.7 L RDW Std Deviation 45.5 H RDW Coeff of Isatu 13.2 Plt Count 431 MPV 8.8 Immature Gran % (Auto) 0.200 Neut % (Auto) 64.7 Lymph % (Auto) 28.5 [place] % (Auto) 5.6 Eos % (Auto) 0.7 Baso % (Auto) 0.3 Absolute Neuts (auto) 5.7 Absolute Lymphs (auto) 2.51 Nucleated RBC % 0 D-Dimer Quant (PE/DVT) 0.39 Sodium 139 Potassium 3.7 Chloride 105 Carbon Dioxide 30.0 Anion Gap 4 L BUN 12 Creatinine 0.88 Estim Creat Clear Calc 116.15 Est GFR (MDRD) Af Amer 93 Est GFR (MDRD) Non-Af 77 BUN/Creatinine Ratio 13.6 Glucose 98 Calcium 9.1 Troponin I High Sens 4 Radiography Diagnostic Testing: Clinical Impression(s) from Imaging Studies Chest X-Ray 09/29/23 19:37 IMPRESSION: Hyperexpanded lungs as can be seen with chronic obstructive pulmonary disease. No radiographic evidence of consolidative pneumonia or florid edema. Electronically Signed: Michael Chappell MD at 20:06 EST Reading Location ID and State: [facility] / ID Tel , Service support , EKG Normal sinus rhythm: Attestation: I personally reviewed and interpreted this EKG as follows: Comments: Normal sinus rhythm, rate 73 bpm, MD interval 142 ms, QRS duration 76 ms, no acute ST elevation, no acute infarct noted. Treatment and Re-Evaluation :: Differential diagnosis includes however is not limited to: Pulmonary embolus, community-acquired pneumonia, muscle skeletal chest wall strain, ACS, IL Patient appears to be in no obvious distress, vital signs are stable presenting to the emergency department with complaints of right-sided chest pain for 3 days. Patient received a full cardiac workup including chest x-ray, EKG, troponins. Patient will also receive a D-dimer secondary to the patient's history of blood clot in her right leg as well as some blood clots in her placenta. She does have some inspiratory pain which is another reason for a D-dimer. Patient be given IV Toradol if this is in fact a muscle skeletal strain. Patient be reevaluated. Patient CBC was unremarkable, patient's D-dimer was negative at 0.39, patient's chemistries were unremarkable, troponin was negative at 4. At this time, do not believe the patient suffering from any sort of pulmonary embolus, ACS or IL. EKG was unremarkable. Chest x-ray inter by the ER physician was negative for any acute cardiopulmonary process. at this time, believe the patient is having more muscle skeletal chest wall pain. Is worse with movement as well as palpation. Patient at this time will be discharged home, instructed return for any worsening symptoms. Patient is happy with the plan of care and stable for discharge. Discharge Plan Triage Chief Complaint: Chest Pain Other Complaint: Shortness of Breath ED Midlevel Provider: Kyrie Casper ED Provider: Wanda Murphy Dx/Rx/DC Orders Clinical Impression: Acute chest wall pain Instructions: ED Chest Pain, Noncardiac, ED Chest Pain, Uncertain Cause Prescriptions: No Action magnesium oxide 500 mg capsule 500 mg PO DAILY potassium 99 mg Tablet 99 mg PO DAILY meloxicam 15 mg tablet 15 mg PO DAILY Primary Care Provider: Aleisha Rice [employer] Referrals: Care Physician,No Primary [Non-Staff] - Activity Restrictions/Additional Instructions: You had a negative chest pain workup today. Please return here for any worsening symptoms Disposition Disposition: Home, Self Care
[2023-09-29 19:09] LABS: Absolute Lymphocyte Count 2.51 X10^3/uL (0.83-4.51); Absolute Neutrophil Count 5.7 X10^3/uL (2.0-7.7); Basophil# 0.03 X10^3/uL; Basophil% 0.3 % (0-1); Eosinophil# 0.06 X10^3/uL; Eosinophils% 0.7 % (0-5); Hematocrit 39.8 % (37-47); Hemoglobin 12.6 g/dL (12.0-15.0); Lymphocyte # 2.51 X10^3/ul (0.83-4.51); Lymphocyte % 28.5 % (19-41); Mean Corp Hgb Conc 31.7 g/dL (32-36); Mean Corpuscular Hgb 29.9 pg (27.0-32.0); Mean Corpuscular Volume 94.3 fL (81-99); Mean Platelet Vol. 8.8 fl (6.2-12.0); Monocyte# 0.49 X10^3/uL; Monocyte% 5.6 % (0-10); NRBC Flagged by Analyzer 0 % (0-5); Neutrophil # 5.69 X10^3/uL (2.7-7.7); Neutrophil % 64.7 % (47-70); Platelet Count 431 K/mm3 (150-450); RBC Distribution Width CV 13.2 % (11.6-14.6); RBC Distribution Width SD 45.5 fl (35.1-43.9); Red Blood Count 4.22 M/mm3 (4.2-5.4); White Blood Count 8.8 K/mm3 (4.4-11.0)
[2023-09-29 19:10] VITALS: PULSE 73; RESP 16; O2SAT 100
[2023-09-29 19:11] VITALS: O2SAT 100
[2023-09-29 19:16] VITALS: O2SAT 100
[2023-09-29] MEDS: Ketorolac 15 MG/ML Vial IV (19:19)
--- OUTSIDE RECORDS SUMMARY | 2023-09-29 19:22 | XMS RPT_ITS | CCD ---
Author Name Unknown Address [address] [place] [address] Organization [facility] Care Team Providers Care Cake Icer Name Role Phone No employment consultant, Md Primary Care Provider Corina CAROLINA Gonzales Referring Unavailabl e SHANI PELAYO Attending Unavailable NO PRIMARY CARE, Primary Care Unavailable NO PRIMARY CARE, Primary Care Unavailable CARLO WOLF Attending Unavailable CARLO WOLF Referring Unavailable NO PRIMARY CARE, Primary Care Unavailable CARLO WOLF Attending Unavailable CARLO WOLF Referring Unavailable BARRIE GOINS Referring Unavaila HERMILO Mccollum Attending Unavailable NO PRIMARY CARE, Primary Care Unavailable CAROLINA GOINS Attending Unavailabl e CAROLINA GOINS Referring Unavailabl e NO PRIMARY CARE, Primary Care Unavailable ISA AGUILA Attending Unavailable CAROLINA GOINS Referring Unavailabl e NO PRIMARY CARE, Primary Care Unavailable NO PRIMARY CARE, Primary Care Unavailable CAROLINA GOINS Referring Unavailabl e CARLO WOLF Attending Unavailable CAROLINA GOINS Referring Unavailabl e NO PRIMARY CARE, Primary Care Unavailable NICKIE SAVAGE Attending Unavailable NO PRIMARY CARE, Primary Care Unavailable CAROLINA GOINS Referring Unavailabl e CARLO WOLF Attending Unavailable SEFERINO JI Attending Unavailable HUNTER SNELL Referring Unavailable ALEISHA RICE Primary Care Unavailable Krystal SOFTWARE DEPLOYMENT ENGINEER - Aleisha LIANG Primary Care Provi genesis Allergies Allergy Classification Reported Allergen(s) Allergy Type Date of Onset Reaction(s) Facility (2 sources) Clarithromycin; Translations: [CLARITHROMYCIN] Drug Allergy 2 Other (See Comments) [facility] (2 sources) Latex; Translations: [LATEX] Propensity to adverse reactions 8 Hives, Rash [facility] (2 sources) Penicillins; Translations: [PENICILLINS] Propensity to adverse reactions 9 Hives, Rash [facility] (3 sources) Sulfonamides (Antibiotic); Translations: [SULFA ANTIBIOTICS] Propensity to adverse reactions 8 Rash, Hives, Other, Swelling [facility] (2 sources) Coconut Fatty Acids; Translations: [COCONUT FATTY ACIDS] Propensity to adverse reactions 2 Rash [facility] (1 source) Clarithromycin Allergy to substance 9 Other, Vomiting Only [facility] (1 source) Latex Allergy to substance 9 Hives, Itching, Rash [facility] (1 source) Coconut Fatty Acids Propensity to adverse reactions 2 [facility] Medications Current Medications Medication Drug Class(es) Dates Sig (Normalized) Sig (Original) ferrous sulfate 325 mg oral tablet (1 source) ferrous sulfate (FEOSOL) 325 (65 FE) MG TABS tablet Take 65 mg of elemental iron by mouth 0 Active Magnesium (1 source) MAGNESIUM PO Esvin e 250 mg by mouth 0 Active magnesium oxide 200 mg oral tablet (1 source) magnesium oxide (Mag-200) 200 MG tablet meloxicam 15 mg oral tablet (1 source) Nonsteroidal Anti-inflammatory Drug Start: 09-27-2023 take 1 tablet by mouth once daily at mealtime meloxicam (Mobic) 15 MG tablet Indications: Medial epicondylitis of elbow, right Take 1 tablet (15 mg) by mouth daily. Take with food. Do not use with other anti-inflammatories . 30 tablet 2 09/27/2023 Active Multiple Vitamins-Minerals (Womens One Daily) tablet (1 source) Multiple Vitamins-Minerals (Womens One Daily) tablet ondansetron 4 mg disintegrating oral tablet (1 source) Serotonin-3 Receptor Antagonist Start: 03-26-2022 ondansetron (ZOFRAN-ODT) 4 MG disintegrating tablet 0 03/26/2022 Active Potassium (2 sources) POTASSIUM PO Esvin e by mouth. 0 Active Problems Problem Classification Problem Date Documented Date Episodic/Chronic Other complications of (2 sources) Poor growth affecting management; Translations: [Maternal care for other known or suspected poor growth, second trimester, not applicable or unspecified] Onset: 03-29-2022 Episodic Other connective tissue disease (2 sources) Medial epicondylitis, right elbow; Translations: [Medial epicondylitis, right elbow] Onset: 09-27-2023 Episodic Other connective tissue disease (1 source) Medial epicondylitis of right humerus; Translations: [Medial epicondylitis, right elbow] 09-27-2023 Episodic Results Test Name Value Interpretation Reference Range Facil ity Vital Signs Date Time Vital Sign Value Performing Clinician Faci lity 09-27-2023 10:16-0500 Body height 185.4 cm Seferino Ji MD Work Phone: [facility] [place] 09-27-2023 10:16-0500 Body mass index (BMI) [Ratio] 27.05 kg/m2 Seferino Ji MD Work Phone: [facility] [place] 09-27-2023 10:16-0500 Body weight 92.99 kg Seferino Ji MD Work Phone: [facility] [place] 09-27-2023 10:16-0500 Diastolic blood pressure 82 mm[Hg] Seferino Ji MD Work Phone: [facility] [place] 09-27-2023 10:16-0500 Systolic blood pressure 120 mm[Hg] Seferino Ji MD Work Phone: [facility] [place] Encounters Encounter Date Encounter Type Care Provider Facility Start: 09-27-2023 End: 09-27-2023 ambulatory SEFERINO JI [facility] Start: 09-27-2023 End: 09-27-2023 Office outpatient new 30 minutes Seferino Ji MD Work Phone: [facility] Procedures Date Procedure Procedure Detail Performing Clinician Start: 05-31-2018 Antibody screen Plan of Treatment Date Care Activity Detail Author Start: 2046 RSV Immunization age d 60 or older (1 - 1-dose 60+ series) RSV Immunization aged 60 or older (1 - 1-dose 60+ series) [facility] Start: 2036 Zoster Vaccines (1 of 2) Zoster Vacc davey (1 of 2) [facility] Start: 05-22-2032 DTaP/Tdap/Td Vaccine s (2 - Td or Tdap) DTaP/Tdap/Td Vaccines (2 - Td or Tdap) [facility] Start: 03-23-2023 COVID-19 Vaccine ( season) COVID-19 Vaccine ( season) [facility] Start: 03-23-2023 Influenza vaccination Influenza Vacc ine (#1) [facility] Start: 04-11-2022 End: 04-11-2022 Professional / ancillary services management 04/11/2022 Ancillary Procedure Visit Maternal Medicine Carolina Goins MD [address] [address] [facility] Start: 03-23-2022 FLU (#1) FLU (#1) [facility] Start: 10-18-2021 COVID-19 (3 - Booste r for Moderna series) COVID-19 (3 - Booster for Moderna series) [facility] Start: 2016 Screening for malign ant neoplasm of cervix [facility] Start: 06-29-2009 MMR Vaccines (1 of 1 - Standard series) MMR Vaccines (1 of 1 - Standard series) [facility] Start: 06-29-2009 Varicella vaccination Varicell a Vaccines (1 of 2 - 2-dose childhood series) [facility] Start: 12-29-2007 Microscopic observat ion [Identifier] in Cervix by Cyto stain Pap Smear [facility] Start: 12-29-2007 Screening for malign ant neoplasm of cervix Pap Smear [facility] Start: 2004 Hepatitis C screening Hepatitis C Sc reening [facility] Start: 2002 MenB (1 of 2 - MenB 2-Dose Series) MenB (1 of 2 - MenB 2-Dose Series) [facility] Start: 1998 Depression Screening Depression Scre ening [facility] Start: 1993 Tetanus Diphtheria a nd Pertussis Vaccines (1 - Tdap) Tetanus Diphtheria and Pertussis Vaccines (1 - Tdap) [facility] Start: 12-29-1987 MMR (1 of 1 - Standa rd series) MMR (1 of 1 - Standard series) [facility] Start: 12-29-1987 Varicella (1 of 2 - 2-dose childhood series) Varicella (1 of 2 - 2-dose childhood series) [facility] Start: 1986 Hepatitis B Vaccines (1 of 3 - 3-dose series) Hepatitis B Vaccines (1 of 3 - 3-dose series) [facility] Start: 1986 HIV screening HIV Screening [facility] End: 03-29-2022 Antithrombin III Activity [facility] Immunizations Immunization Date Immunization Notes Care Provider Fa [facility] 05-22-2022 influenza, seasonal, injectable Seferino Ji MD Work Phone: [facility] 05-22-2022 tetanus toxoid, redu beau diphtheria toxoid, and acellular pertussis vaccine, adsorbed Seferino Ji MD Work Phone: [facility] 05-22-2022 influenza virus vacc ine, unspecified formulation Seferino Ji MD Work Phone: [facility] 05-23-2015 influenza, seasonal, injectable Seferino Ji MD Work Phone: [facility] 04-22-2014 influenza, seasonal, injectable Seferino Ji MD Work Phone: [facility] 06-01-2009 novel influenza-H1N1 -09, preservative-free, injectable Seferino Ji MD Work Phone: [facility] 04-21-2009 influenza virus vacc ine, unspecified formulation Seferino Ji MD Work Phone: [facility] Payers Date Payer Category Payer Unknown [id number] 2020 Unknown [id number] 1986 Unknown [id number] 2.16. [id number] 1986 Unknown [id number] 2.16. [id number] 1986 Unknown [id number] 2.16. [id number] 1986 Unknown [id number] 2.16. [id number] 1986 Unknown [id number] 2.16. [id number] 1986 Unknown [id number] 2.16. [id number] 1986 Unknown [id number] 2.16. [id number] 1986 Unknown [id number] 2.16. [id number] 1986 Unknown [id number] 2.16. [id number] Unknown [id number] Social History Date Type Detail Facility Start: 03-29-2022 Tobacco smoking stat [facility] Ex-smoker [facility] End: 07-23-2016 History of tobacco use Current smoker [facility] End: 07-23-2016 History of tobacco use Cigarette Smoker [facility] Start: 03-29-2022 Tobacco use and exposure User of smokeless tobacco [facility] Start: 03-29-2022 Alcohol intake Ex-drinker (finding) [facility] Start: 03-29-2022 Tobacco Comment Pt does when s he drives. Uses 1.8 [facility] Start: 11-17-2021 [facility] Start: 1986 Sex Assigned At Not on file A [facility] Start: 03-19-2022 End: 03-29-2022 Exposure to SARS-CoV-2 (event) Not sure [facility] Start: 09-27-2023 Tobacco smoking stat [facility] Never smoked tobacco [facility] Start: 09-27-2023 Tobacco use and exposure Smoke less tobacco non-user [facility] Start: 09-27-2023 History of Social function [facility] Start: 09-27-2023 Tobacco use panel [facility] Start: 1985 Sex Assigned At Female S [facility] Start: 09-20-2023 Gender identity Identifies as female gender (finding) [facility] Start: 09-20-2023 Sexual orientation Heterosexual (fin ding) [facility] History of Present illness Narrative 09-27-2023 Seferino Ji MD - 09/27/2023 10:15 AM EST Note Date & Type Note Facility 09-27-2023 History of Presen t illness Narrative Images from the original note were not included. [facility] [address] [place] [address] Dept: [phone] Dept Chief Complaint Patient presents with New Patient Right elbow, referred from [facility] Melanie Batista is a 37 y.o. right handed female that presents for evaluation of pain in her RIGHT Medial Elbow. Symptoms have been present for 5 month(s). The symptoms started after moving a freezer felt sharp medial elbow pain. Pain Characteristics Described as sharp, tingling Worse with elbow flexion and gripping Alleviated rest and hinged elbow brace Severity moderate Previous Treatments NSAIDs: No - Does not tolerate antiinflammatory medications Injection: No - Has never received an injection Therapy: No - Has not attempted formal therapy Splinting: Yes - Has worn a Hinged elbow brace which gave minimal relief Surgery: Yes - Has had previous surgery to include: Right cuff repair 2013 MRI: Yes on disc States he was pulling a freezer away from the wall and felt sharp medial elbow discomfort. Since that time he has had pain with use. Pain is focal to the medial elbow. No results found for: HGBA1C OBJECTIVE BP 120/82 Ht 6' 1 (1.854 m) Wt 205 lb (93 kg) BMI 27.05 kg/m Ortho Exam Comprehensive Exam of the RIGHT ELBOW Skin: intact without any evidence of breakdown, warmth, erythema, or obvious deformity Edema: no evidence of edema Palpation: tender to palpation over the medial epicondyle ROM: Flexion 140 deg Extension 0 deg Supination 80 deg Pronation 80 deg Motor: intact in the hand - able to fire AIN, PIN, and Ulnar nerves without appreciable weakness Sensation: to light touch normal in the median, ulnar, and radial nerve distributions Perfusion: Brisk capillary refill in all 5 digits Special Elbow Tests: Resisted wrist extension (forearm pronated) *Lateral Epicondylitis* negative Resisted long finger extension *Radial Tunnel* negative Resisted supination (elbow and wrist extended) *Radial Tunnel* negative Resisted wrist flexion/pronation *Medial Epicondylitis POSITIVE - with characteristic pain Tinels at cubital tunnel negative Ulnar nerve subluxation negative Varus instability (20 deg supinated) *LCL* negative Valgus instability (20 deg pronated) *UCL* negative Prolonged resisted pronation *Pronator Syndrome negative Examination of the contralateral upper extremity reveals skin to be warm, dry, and intact. There is no evidence of edema. she has full range of motion without apparent instabilities. There is no apparent tenderness to palpation. Excellent strength without deficit. Normal coordination and sensation throughout her upper extremity. Easily palpable radial pulse. IMAGING Plain films were reviewed from outside disc. RIGHT Elbow 3V no osseous abnormalities. Right Elbow MRI w/o contrast dated 06/21/2023 shows: PROCEDURE none ASSESSMENT (M77.01) Medial epicondylitis of elbow, right 1. Medial epicondylitis of elbow, right PLAN I discussed with Melanie the natural history, expected outcome, and risks/benefits of both operative and nonoperative management of her particular diagnosis relative to her age, activity level, previous treatment, and physical exam. Melanie had some excellent questions, all of which were answered to her satisfaction. Melanie presents with medial epicondylitis. Independently interpreted her previous MRI. No clear tendinopathy of the medial epicondyle. Exam is negative for ulnar nerve pathology. I recommend a trial of Mobic and physical therapy. If she is no better we may consider an injection in 3 to 4 months. Understands risk/benefit profile of Mobic. Follow-up: Melanie will followup with me on an as needed basis. She knows to call the office with any questions or concerns in the interim. Future Imaging: NONE Seferino Ji MD Hand and Upper Extremity Surgery [facility] Department of Orthopaedics and Sports Medicine 09/27/2023 (Please note that portions of this note may have been completed with a voice recognition program. Efforts were made to edit the dictations but occasionally words are mis-transcribed.) documented in this encounter [facility] note Note Date & Type Note Facility documented in this encounter [facility] Evaluation note Note Date & Type Note Facility documented in this encounter [facility] Summary Purpose Family History No Family History Records FoundNo Family History Records FoundNo Family History Records FoundNo Family History Records Found Advance Directives No Advanced Directives Records FoundNo Advanced Directives Records FoundNo Advanced Directives Records FoundNo Advanced Directives Records Found Reason for Referral Specialty Diagnoses / Procedures Referred By Contac t Referred To Contact Physical Therapy Diagnoses Medial epicondylitis of elbow, right Procedures OR OFFICE/OUTPATIENT NEW HIGH MDM 60 MINUTES Seferino Ji MD [address] [facility] [address] [place] [address] Referral ID Status Reason Start Date Expiration Date Visits Requested Visits Authorized [id number] Pending Review Eval and Treat 09/27/2023 03/25/2024 99 99 Additional Source Comments INFORMATION SOURCE (unrecogn ized section and content) DATE CREATED AUTHOR AUTHOR'S ORGANIZ ATION 04/27/[address] [facility] DATE CREATED AUTHOR AUTHOR'S ORGANIZ ATION 07/20/2022 [facility] DATE CREATED AUTHOR AUTHOR'S ORGANIZ ATION 09/28/2023 [facility] Care Teams (unrecognized sec tion and content) Cake Icer Relationship Specialty Start Date End Date Aleisha Rice APRN - [place] [address] [place] [id number] PCP - General Family Nurse Practitioner 09/27/23 Reason for Visit (unrecogniz ed section and content) Specialty Diagnoses / Procedures Referred By Contact Referred To Contact Hand Surgery / Orthopedic Surgery Diagnoses Lateral epicondylitis, right elbow Procedures OR OFFICE/OUTPATIENT NEW MODERATE MDM 45 MINUTES Hunter Snell [address] [facility] [address] [place] [address] Seferino Ji MD [address] [place] [address] [place] [address] Referral ID Status Reason Start Date Expiration Date Visits Re quested Visits Authorized [id number] Closed 09/06/2023 03/04/2024 1 1 FOR RECORDS PERTAINING TO PATIENTS WHO ARE OR HAVE BEEN ENROLLED IN A CHEMICAL DEPENDENCY/SUBSTANCEABUSE PROGRAM, SOME INFORMATION MAY BE OMITTED. This clinical summary was aggregated from multiple sources. Caution should be exercised in using it in the provision of clinical care. This summary normalizes information from multiple sources, and as a consequence, information in this document may materially change the coding, format and clinical context of patient data. In addition, data may be omitted in some cases. CLINICAL DECISIONS SHOULD BE BASED ON THE PRIMARY CLINICAL RECORDS. [employer] provides no warranty or guarantee of the accuracy or completeness of information in this document.
[2023-09-29 19:29] LABS: Anion Gap 4 (5-15); BUN 12 mg/dL (7-18); BUN/Creat Ratio 13.6 RATIO (10-20); Calcium,Total 9.1 mg/dL (8.5-10.1); Chloride 105 mmol/L (98-107); Creatinine, Serum 0.88 mg/dL (0.55-1.02); EST Glomerular Filtration Rate 77 mL/min (>60); Est Glom Filt Rate - Afr Amer 93 mL/min (>60); Estimated Creatinine Clearance 116.15 ml/min; Glucose 98 mg/dL (74-106); Potassium 3.7 mmol/L (3.5-5.1); Sodium Level 139 mmol/L (136-145)
--- NOTE | 2023-09-29 19:37 | RAD_ITS ---
INDICATION: chest pain EXAMINATION/TECHNIQUE: X-RAY - XR Chest 1 View COMPARISON: July 05, 2021. FINDINGS: LINES/DEVICES: None. LUNGS: Lungs symmetrically mildly hyperexpanded. Chronic symmetric medial lower lung eventration. No consolidation, edema or effusion. No pneumothorax. MEDIASTINUM AND CARDIOVASCULAR STRUCTURES: Cardiac silhouette not enlarged. BONES AND SOFT TISSUES: Unremarkable. RAD/Chest 1 View (Portable) IMPRESSION: Hyperexpanded lungs as can be seen with chronic obstructive pulmonary disease. No radiographic evidence of consolidative pneumonia or florid edema. Electronically Signed: Michael Chappell MD at 20:06 EST ,
[2023-09-29 19:53] LABS: Troponin-I HS 4 pg/mL (3.0-54.0)
[2023-09-29 19:56] LABS: D-Dimer Quantitative (DVT/PE) 0.39 FEU/ug/m (0.27-0.49)
[2023-09-29 20:43] VITALS: BP 111/77; PULSE 66; RESP 14; TEMP 36; O2SAT 100
== END 2023-09-29 20:44 | disposition home or self-care (01) ==
PROVIDERS: Nurse Practitioner; Emergency Provider Emergency Medicine; PCP Registered Nurse; Visit Provider Emergency Medicine
DX: R07.89 Other chest pain (principal); Z87.891 Personal history of nicotine dependence; Z98.51 Tubal ligation status; I10 Essential (primary) hypertension; Z90.49 Acquired absence of other specified parts of digestive tract
CPT/HCPCS: 71045; 80048; 84484; 85025; 85379; 93005; 96374; 99285; A4216

== ENCOUNTER 2025-01-11 18:37 | Emergency (ER) | payer BC, SELFPAY ==
[2025-01-11 18:39] VITALS: BP 144/87; PULSE 114; RESP 16; TEMP 36.8; O2SAT 97; BMI 24.1
[2025-01-11 19:11] VITALS: BP 126/89; PULSE 109; RESP 18; TEMP 36.6; O2SAT 98
--- OUTSIDE RECORDS SUMMARY | 2025-01-11 19:24 | XMS RPT_ITS | CCD ---
Author Organization [facility] Care Team Providers Care Title [employer] K[employer] Teacher Name Role Phone Care Physician, No Primary Primary Care Provider Unavailable Care Physician, No Primary Referring Provider Un available Dr. Wanda Garrett Attending Provider [phone] Dr. Carolina Wei Attending Provider Krish BUSTOS, VERN Rizvi Attending Provider No transportation services representative, Md Primary Care Provider Corina vailable Care Physician, No Primary Primary Care Provider Unavailable Care Physician, No Primary Referring Provider Un available MARCO Vera Attending Provider CAROLINA WEI Referring Unavailabl e SHANI PELAYO Attending Unavailable NO PRIMARY CARE, Primary Care Unavailable NO PRIMARY CARE, Primary Care Unavailable CARLO WOLF Attending Unavailable CARLO WOLF Referring Unavailable NO PRIMARY CARE, Primary Care Unavailable CARLO WOLF Attending Unavailable CARLO WOLF Referring Unavailable RICHY WEI Referring Unavaila HERMILO Mccollum Attending Unavailable NO PRIMARY CARE, Primary Care Unavailable CAROLINA WEI Attending Unavailabl e CAROLINA WEI Referring Unavailabl e NO PRIMARY CARE, Primary Care Unavailable ISA AGUILA Attending Unavailable CAROLINA WEI Referring Unavailabl e NO PRIMARY CARE, Primary Care Unavailable NO PRIMARY CARE, Primary Care Unavailable CAROLINA WEI Referring Unavailabl e CARLO WOLF Attending Unavailable CAROLINA WEI Referring Unavailabl e NO PRIMARY CARE, Primary Care Unavailable NICKIE SAVAGE Attending Unavailable NO PRIMARY CARE, Primary Care Unavailable CAROLINA WEI Referring Unavailabl e CARLO WOLF Attending Unavailable Care Physician, No Primary Primary Care Provider Unavailable Care Physician, No Primary Referring Provider Un available Dr. Carolina Wei Attending Provider [phone] MARCO Vera Attending Provider Krish BUSTOS, VERN Rizvi Attending Provider [phone] Dr. Wanda Garrett Attending Provider Dr. Carolina Wei Admit Provider Dr. Carolina Wei Referring Provider [phone] Dr. Carolina Wei Other Provider Care Physician, No Primary Primary Care Provider Unavailable Care Physician, No Primary Referring Provider Un available Dr. Carolina Wei Attending Provider [phone] José POWER REACTOR SUPERVISOR, VERN Antony Attending Provider Dr. Grey Grace Attending Provider SEFERINO JI Attending Unavailable HUNTER REDDY Referring Unavailable KAREN ALEISHA [facility] Unavailable Karen CUSTOMER ASSOCIATE - DUMP MOTORMAN, [facility] Provi genesis Wanda Murphy Attending Unavailable Karen BUSTOS, [facility] Unavailabl e Allergies Allergy Classification Reported Allergen(s) Allergy Type Date of Onset Reaction(s) Facility (14 sources) Clarithromycin; Translations: [CLARITHROMYCIN] Drug Allergy 10-02-19 22 Other (See Comments) [facility] (13 sources) Coconut extract Drug Allergy 10-02-19 22 [facility] Work Phone: (14 sources) Latex; Translations: [LATEX] Allergy to substance 05-06-20 18 Hives, [facility] Work Phone: (13 sources) Penicillins; Translations: [PENICILLINS] Allergy to substance 04-02-20 09 Hives, [facility] Work Phone: (13 sources) Sulfonamides (Antibiotic); Translations: [Sulfa (Sulfonamide Antibiotics)] Allergy to substance 10-02-19 22 Fever and skin rash [facility] (3 sources) Sulfonamides (Antibiotic); Translations: [SULFA ANTIBIOTICS] Propensity to adverse reactions 05-15-20 18 Rash, Hives, Other, Swelling [facility] (2 sources) COCONUT FATTY ACIDS; Translations: [COCONUT FATTY ACIDS] Propensity to adverse reactions to drug (disorder) 10-02-19 22 Rash [facility] Repository (1 source) Clarithromycin Allergy to substance 04-02-20 09 Other, Vomiting Only [facility] (1 source) Latex Allergy to substance 04-02-20 09 Hives, Itching, Rash [facility] (1 source) Clarithromycin Drug Allergy 09-29-19 [facility] Repository (1 source) Coconut extract Drug Allergy 09-29-19 [facility] Repository (1 source) Latex Drug allergy (disorder) 09-29-19 [facility] Repository Medications Current Medications Medication Drug Class(es) Dates Sig (Normalized) Sig (Original) Albuterol (20 sources) beta2-Adrenergic Agonist Start: 09-12-2021 Albuterol (Refill) Active 90 MCG INHALATION NEEDED September 12, 2021 4:14pm Start: 09-12-2021 End: 09-29-2023 Albuterol (Refill) Discontin ued 90 MCG INHALATION NEEDED September 12, 2021 12:00am September 29, 2023 7:12pm Start: 09-12-2021 Albuterol (Ref ill) Active 90 MCG INHALATION NEEDED September 12, 2021 12:00am Start: 09-12-2021 Albuterol (Ref ill) Active 90 MCG INHALATION NEEDED September 12, 2021 1:00am Start: 02-28-2017 End: 03-03-2020 take 1 puff(s) by inhalation every four hours as needed Albuterol Sulfate Discontinued 2 PUFF INHALATION EVERY 4 HOURS NEEDED February 27, 2017 11:00pm March 03, 2020 10:54am B-Complex With Vitamin C (Super B Complex-Vitamin C) tablet (12 sources) Start: 03-03-2020 take 1 tablet by mouth once daily B-Complex With Vitamin C (Super B Complex-Vitamin C) tablet Active 1 TABLET PO DAILY March 03, 2020 11:54am Start: 03-03-2020 End: 05-08-2022 take 1 tablet by mouth once daily B-Complex With Vitamin C (Super B Complex-Vitamin C) tablet Discontinued 1 TABLET PO DAILY March 02, 2020 11:00pm May 08, 2022 8:32am Start: 03-03-2020 End: 05-08-2022 take 1 tablet by mouth once daily B-Complex With Vitamin C (Super B Complex-Vitamin C) tablet Discontinued 1 TABLET PO DAILY March 03, 2020 12:00am May 08, 2022 9:32am Start: 03-03-2020 take 1 tablet by suleiman once daily B-Complex With Vitamin C (Super B Complex-Vitamin C) tablet Active 1 TABLET PO DAILY March 03, 2020 12:00am Cranberry (12 sources) Non-Standardized Food Allergenic Extract, Non-Standardized Plant Allergenic Extract Start: 09-12-2021 take 500 mg by mouth twice daily Cranberry Active 500 MG PO TWICE A DAY September 12, 2021 4:07pm Start: 09-12-2021 End: 01-04-2022 take 500 mg by mouth twice daily Cranberry Discontinued 500 MG PO TWICE A DAY September 12, 2021 12:00am January 04, 2022 12:18pm Start: 09-12-2021 End: 01-04-2022 take 500 mg by mouth twice daily Cranberry Discontinued 500 MG PO TWICE A DAY September 12, 2021 1:00am January 04, 2022 1:18pm Lactobacillus Combination No.4 (Probiotic) 3 billion cell Capsule (12 sources) Start: 09-12-2021 take 3 capsules by mouth once daily Lactobacillus Combination No.4 (Probiotic) 3 billion cell Capsule Active 3000 MMU CELLS PO DAILY September 12, 2021 4:07pm Start: 09-12-2021 End: 09-29-2023 take 3 capsules by mouth once daily Lactobacillus Combination No.4 (Probiotic) 3 billion cell Capsule Discontinued 3000 MMU CELLS PO DAILY September 12, 2021 12:00am September 29, 2023 7:13pm Start: 09-12-2021 take 3 capsules by m outh once daily Lactobacillus Combination No.4 (Probiotic) 3 billion cell Capsule Active 3000 MMU CELLS PO DAILY September 12, 2021 12:00am Start: 09-12-2021 take 3 capsules by m outh once daily Lactobacillus Combination No.4 (Probiotic) 3 billion cell Capsule Active 3000 MMU CELLS PO DAILY September 12, 2021 1:00am Magnesium (1 source) MAGNESIUM PO Esvin e 250 mg by mouth 0 Active magnesium oxide 500 mg oral capsule (10 sources) Start: 01-04-2022 take 500 mg by mouth once daily Magnesium Oxide Active 500 MG PO DAILY January 03, 2022 11:00pm magnesium oxide (Mag-200) 200 MG tablet meloxicam 15 mg oral tablet (2 sources) Nonsteroidal Anti-inflammatory Drug Start: 09-27-2023 take 15 mg by mouth once daily Meloxicam Active 15 MG PO DAILY September 29, 2023 12:00am Multiple Vitamins-Mineral s (Womens One Daily) tablet (1 source) Multiple Vitamins-Mineral s (Womens One Daily) tablet potassium 99 mg extended release oral tablet (9 sources) Start: 02-10-2022 take 99 mg by mouth once daily Potassium Active 99 MG PO DAILY February 09, 2022 11:00pm POTASSIUM PO Esvin e by mouth. 0 Active Vit-Fe Fumarate-FA ( VITAMINS PO) (1 source) Vit-Fe Fumarate-FA ( VITAMINS PO) Take by mouth 0 Active vitamin#30 30 mg iron-10 mg iron-folic acid 1 mg-omg3 capsule (12 sources) Start: 03-03-2020 take 1 capsule by mouth once daily vitamin#30 30 mg iron-10 mg iron-folic acid 1 mg-omg3 capsule Active 1 CAP PO DAILY March 03, 2020 11:54am Start: 03-03-2020 End: 09-29-2023 take 1 capsule by mouth once daily vitamin#30 30 mg iron-10 mg iron-folic acid 1 mg-omg3 capsule Discontinued 1 CAP PO DAILY March 02, 2020 11:00pm September 29, 2023 7:13pm Start: 03-03-2020 take 1 capsule by mo uth once daily vitamin#30 30 mg iron-10 mg iron-folic acid 1 mg-omg3 capsule Active 1 CAP PO DAILY March 02, 2020 11:00pm Start: 03-03-2020 take 1 capsule by mo uth once daily vitamin#30 30 mg iron-10 mg iron-folic acid 1 mg-omg3 capsule Active 1 CAP PO DAILY March 03, 2020 12:00am Completed/Discontinued Medications Medication Drug Class(es) Dates Sig (Normalized) Sig (Original) acetaminophen 325 mg / HYDROcodone bitartrate 5 mg oral tablet (12 sources) Opioid Agonist Start: 09-05-2019 End: 09-08-2019 take 1 tablet by mouth every six hours as needed Hydrocodone-Acetamin ophen Discontinued 1 TABLET PO EVERY 6 HOURS NEEDED 04 24September 05, 2019 September 08, 2019 12:08am cyclobenzaprine hydrochloride 10 mg oral tablet (12 sources) Muscle Relaxant Start: 09-05-2019 End: 03-03-2020 take 10 mg by mouth at bedtime as needed Cyclobenzaprine Discontinued 10 MG PO AT BEDTIME NEEDED September 05, 2019 3:56pm March 03, 2020 10:54am 0.4 ml enoxaparin sodium 100 mg/ml prefilled syringe (8 sources) Low Molecular Weight Heparin Start: 04-14-2022 End: 07-28-2022 Enoxaparin (Lovenox) 40 mg/0.4 mL syringe Discontinued 40 MG SC daily July 27, 2022 7:50am July 28, 2022 3:16am ferrous sulfate 325 mg oral tablet (13 sources) Start: 09-12-2021 End: 01-04-2022 take 1 tablet by mouth once daily Ferrous Sulfate (Iron) 325 mg (65 mg iron) Tablet Discontinued 325 MG PO DAILY September 12, 2021 12:00am January 04, 2022 12:18pm ferrous sulfate (FEOSOL) 325 (65 FE) MG TABS tablet Take 65 mg of elemental iron by mouth 0 Active hyoscyamine sulfate 0.12 mg / methenamine 81.6 mg / methylene blue 10.8 mg / sodium phosphate, monobasic 40.8 mg oral tablet (12 sources) Oxidation-Reduction Agent Start: 09-19-2021 End: 01-04-2022 take 1 tablet by mouth four times daily as needed Methen-Sod Phos-Meth Blue-Hyos (Urogesic-Blue) 81.6-40.8-0.12 mg tablet Discontinued 1 TABLET PO 4 TIMES DAILY NEEDED September 19, 2021 12:00am January 04, 2022 12:18pm CHRONIC UTI levonorgestrel 0.518390 mg/hr intrauterine system (3 sources) Progestin, Progestin-containing Intrauterine Device Start: 04-29-2021 End: 04-29-2021 levonorgestrel 20 mcg/24 hours (6 yrs) 52 mg intrauterine device Discontinued 1 INSERT INTRA-UTER ONCE 1 April 29, 2021 8:58am April 29, 2021 9:35am metoclopramide 10 mg oral tablet (12 sources) Dopamine-2 Receptor Antagonist Start: 05-03-2020 End: 04-29-2021 take 10 mg by mouth every six hours Metoclopramide Hcl Discontinued 10 MG PO EVERY 6 HOURS 60 May 02, 2020 11:00pm April 29, 2021 8:05am naproxen 250 mg oral tablet (20 sources) Nonsteroidal Anti-inflammatory Drug Start: 09-29-2020 End: 04-29-2021 take 250-500 mg by mouth every eight hours as needed Naproxen Discontinued 250 - 500 MG PO EVERY 8 HOURS NEEDED September 29, 2020 12:00am April 29, 2021 8:05am Start: 09-05-2019 End: 03-03-2020 take 500 mg by mouth twice daily as needed Naproxen Discontinued 500 MG PO TWICE DAILY NEEDED September 05, 2019 12:00am March 03, 2020 10:54am nitrofurantoin, macrocrystals 25 mg / nitrofurantoin, monohydrate 75 mg oral capsule (9 sources) Nitrofuran Antibacterial Start: 01-05-2022 End: 01-12-2022 take 1 capsule by mouth twice daily at mealtime Nitrofurantoin Monohyd/M-Cryst (Macrobid) 100 mg capsule Discontinued 100 MG PO TWICE A DAY 14 January 04, 2022 11:00pm January 11, 2022 11:03pm must administer with a meal/food ondansetron 4 mg disintegrating oral tablet (20 sources) Serotonin-3 Receptor Antagonist Start: 01-04-2022 End: 09-29-2023 take 4 mg by mouth every eight hours Ondansetron Discontinued 4 MG PO Q8H May 08, 2022 9:10am September 29, 2023 7:13pm Start: 03-23-2020 End: 05-03-2020 take 4 mg by mouth every four hours Ondansetron Discontinued 4 MG PO Q4H 60 March 22, 2020 11:00pm May 03, 2020 10:28am sulfamethoxazole 800 mg / trimethoprim 160 mg oral tablet (12 sources) Dihydrofolate Reductase Inhibitor Antibacterial, Sulfonamide Antimicrobial Start: 05-09-2021 End: 05-16-2021 take 1 tablet by mouth twice daily Sulfamethoxazole-Trimethoprim (Bactrim Ds) 800-160 mg tablet Discontinued 1 TABLET PO TWICE A DAY 14 7 May 08, 2021 11:00pm May 15, 2021 11:01pm Problems Active Problems Problem Classification Problem Date Documented Date Episodic/Chronic Abdominal pain (7 sources) Abdominal pain; Translations: [Unspecified abdominal pain] 02-18-2022 Episodic Anxiety disorders (20 sources) Mixed anxiety and depressive disorder; Translations: [Other specified anxiety disorders] Chronic Contraceptive and procreative management (20 sources) Patient encounter status; Translations: [Encounter for contraceptive management, unspecified] Episodic Genitourinary symptoms and ill-defined conditions (20 sources) Increased frequency of urination; Translations: [Frequency of micturition] Episodic Hemorrhage during ; abruptio placenta; placenta previa (20 sources) Antepartum hemorrhage; Translations: [Hemorrhage in early , unspecified] Episodic Nonspecific chest pain (2 sources) Chest wall pain; Translations: [Other chest pain] Onset: 10-03-2023 09-29-2023 Episodic Other complications of ; puerperium affecting management of mother (1 source) Other disorders of breast associated with and the puerperium; Translations: [Other and unspecified disorder of breast associated with childbirth, condition or complication] 07-31-2022 Episodic Other complications of (17 sources) Anemia of ; Translations: [Anemia complicating , unspecified trimester] 07-28-2022 Chronic Other complications of (20 sources) Anemia complicating , unspecified trimester; Translations: [Anemia of mother, unspecified as to episode of care or not applicable] Chronic Other complications of (20 sources) High risk ; Translations: [Supervision of high risk , unspecified, unspecified trimester] 09-30-2020 Episodic Other complications of (12 sources) Uterine size for dates discrepancy; Translations: [Uterine size-date discrepancy, unspecified trimester] 09-30-2020 Episodic Other complications of (12 sources) Nausea and vomiting; Translations: [Vomiting of , unspecified] 05-31-2020 Episodic Other complications of (12 sources) History of fourth degree perineal laceration; Translations: [Supervision of with other poor reproductive or obstetric history, unspecified trimester] 09-30-2020 Episodic Other complications of (9 sources) Multigravida of advanced maternal age; Translations: [Supervision of elderly multigravida, unspecified trimester] 07-28-2022 Episodic Other complications of (9 sources) Urinary tract infection in ; Translations: [Unspecified infection of urinary tract in , unspecified trimester] 07-28-2022 Episodic Other complications of (9 sources) History of premature labor; Translations: [Supervision of with history of pre-term labor, unspecified trimester] 07-28-2022 Episodic Other complications of (20 sources) Supervision of elderly multigravida, unspecified trimester; Translations: [Elderly multigravida, unspecified as to episode of care or not applicable] Episodic Other complications of (20 sources) Supervision of with history of pre-term labor, unspecified trimester; Translations: [ with history of pre-term labor] Episodic Other complications of (20 sources) Supervision of elderly multigravida, first trimester; Translations: [Supervision of high-risk with elderly multigravida] Episodic Other complications of (20 sources) Unspecified infection of urinary tract in , unspecified trimester; Translations: [Infections of genitourinary tract in , unspecified as to episode of care or not applicable] Episodic Other complications of (2 sources) Poor growth [...] Translations: [Medial epicondylitis, right elbow] 09-27-2023 Episodic Other female genital disorders (12 sources) Vaginal bleeding; Translations: [Abnormal uterine and vaginal bleeding, unspecified] 10-09-2021 Chronic Other and delivery including normal (20 sources) ; Translations: [Encounter for supervision of normal , unspecified, unspecified trimester] Episodic Residual codes; unclassified (12 sources) Gestation period, 37 weeks; Translations: [37 weeks gestation of ] 09-30-2020 Episodic Residual codes; unclassified (2 sources) Edema of lower extremity; Translations: [Localized edema] 09-10-2022 Episodic Residual codes; unclassified (1 source) Localized edema; Translations: [Edema] 09-08-2022 Episodic Short gestation; low weight; and growth retardation (20 sources) growth restriction; Translations: [ growth restriction] Episodic Sprains and strains (12 sources) Lumbosacral strain; Translations: [Strain of muscle, fascia and tendon of lower back, initial encounter] 09-06-2019 Episodic Thyroid disorders (3 sources) Goiter; 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 Urinary tract infections (16 sources) Urinary tract infectious disease; Translations: [Urinary tract infection, site not specified] Episodic Past or Other Problems Problem Classification Problem Date Documented Da te Episodic/Chronic Unclassified (12 sources) Labor finding; Translations: [Active labor] 09-30-2020 Unclassified (12 sources) Remove/insert IUD 01-30-2022 Results Test Name Value Interpretation Reference Range Facility 12 Lead EKGon 09-29-2023 12 Lead EKG [facility] [address] [place] [address] 12 Lead EKG 09/29/23 1840 MR#: [id number] Acct: [id number] Name: MELANIE BATISTA Rep #: [id number] : 1985 37 From: Hunter Guzman MD Attending Dr: Status: DEP ER Ordering Dr: Wanda Murphy MD Date: 09/29/23 Location: ED Sex: F C Admitted: Test Reason : CP Blood Pressure : / mmHG Vent. Rate : 073 BPM Atrial Rate : 073 BPM P-R Int : 142 ms QRS Dur : 076 ms QT Int : 386 ms P-R-T Axes : 039 013 057 degrees QTc Int : 425 ms Normal sinus rhythm Possible Left atrial enlargement Borderline ECG Confirmed by Hunter Guzman ([id number]), editor managing director REI RIBEIRO ([id number]) on 10/02/2023 8:15:32 AM Referred By: Confirmed By:Hunter Guzman 10/02/23 0815 Date Hunter Guzman MD CC: VERN Rice; Dr. Wanda Murphy MD Signed Normal [facility] Absolute lymphocyte countOrd ered By: Wanda Murphy on 09-29-2023 Lymphocytes Auto (Unsp spec) [#/Vol] 2.51 10*3/uL 0.83-4.51 [facility] Automated lymphocyte count a s percentage of total leukocytesOrdered By: Wanda Murphy on 09-29-2023 Lymphocytes/100 WBC Auto (Unsp spec) 28.5 % 19-41 [facility] Basic Metabolic Profile (BMP )on 09-29-2023 BUN/CRE 13.6 RATIO Normal 10-20 [facility] Comment on above: Performed By: #### L 300.8000, L100.0100, L500.2500 #### [facility] [address] [place], [address] CA,Total 9.1 mg/dL Normal 8.5-10.1 [facility] Comment on above: Performed By: #### L 300.8000, L100.0100, L500.2500 #### [facility] [address] [place], [address] Chloride [Moles/Vol] 105 mmol/L Normal 98-107 [facility] Comment on above: Performed By: #### L 300.8000, L100.0100, L500.2500 #### [facility] [address] [place], [address] CO2 [Moles/Vol] 30.0 mmol/L Normal 21.0-32.0 [facility] Comment on above: Performed By: #### L 300.8000, L100.0100, L500.2500 #### [facility] [address] [place], [address] Creatinine [Mass/Vol] 0.88 mg/dL Normal 0.55-1.02 [facility] Comment on above: Result Comment: The validity of the calculated GFR GFRAA in patients over 70 years has not been determined. Clinical correlation is essential. Performed By: #### L 300.8000, L100.0100, L500.2500 #### [facility] [address] [place], [address] ECRCL 116.15 ml/min Normal [facility] Comment on above: Performed By: #### L 300.8000, L100.0100, L500.2500 #### [facility] [address] [place], [address] EST GFR - AA 93 mL/min Normal >60 [facility] Comment on above: Result Comment: Afri can Finnish GFR Calc Performed By: #### L 300.8000, L100.0100, L500.2500 #### [facility] [address] [place], [address] GAP 4 Low 5-15 [facility] Comment on above: Performed By: #### L 300.8000, L100.0100, L500.2500 #### [facility] [address] [place], [address] GFR/1.73 sq M.predicted among non-blacks MDRD (S/P/Bld) [Vol rate/Area] 77 mL/min/{1.73_m2} Normal >60 [facility] Comment on above: Result Comment: Non- GFR Calc Performed By: #### L 300.8000, L100.0100, L500.2500 #### [facility] [address] [place], [address] Glucose [Mass/Vol] 98 mg/dL Normal 74-[address] [facility] Comment on above: Performed By: #### L 300.8000, L100.0100, L500.2500 #### [facility] [address] [place], [address] Potassium [Moles/Vol] 3.7 mmol/L Normal 3.5-5.1 [facility] Comment on above: Performed By: #### L 300.8000, L100.0100, L500.2500 #### [facility] [address] [place], [address] Sodium [Moles/Vol] 139 mmol/L Normal 136-[address] [facility] Comment on above: Performed By: #### L 300.8000, L100.0100, L500.2500 #### [facility] [address] [place], [address] Urea nitrogen [Mass/Vol] 12 mg/dL Normal 7-18 [facility] Comment on above: Performed By: #### L 300.8000, L100.0100, L500.2500 #### [facility] [address] [place], [address] Basophil percentageOrdered B y: Wanda Katherine on 09-29-2023 Basophils/100 WBC (Bld) 0.3 % 0-1 [facility] Chloride [Moles/Vol] 105 mmol/L 98-107 [facility] Eosinophils/100 WBC (Bld) 0.7 % 0-5 [facility] Glucose [Mass/Vol] 98 mg/dL 74-[address] [facility] Hemoglobin (Bld) [Mass/Vol] 12.6 g/dL 12.0-15.0 [facility] Monocytes/100 WBC (Bld) 5.6 % 0-10 [facility] Neutrophils (Bld) [#/Vol] 5.7 10*3/uL 2.0-7.7 [facility] Neutrophils/100 WBC (Bld) 64.7 % 47-70 [facility] Potassium [Moles/Vol] 3.7 mmol/L 3.5-5.1 [facility] Sodium [Moles/Vol] 139 mmol/L 136-[address] [facility] WBC (Bld) [#/Vol] 8.8 10*3/uL 4.4-11.[address] [facility] CBC W/Diff, Automatedon 03-0 -2023 Absolute Lymph 2.51 X10 3/uL Normal 0.83-4.51 [facility] Comment on above: Performed By: #### L 300.8000, L100.0100, L500.2500 #### [facility] [address] [place], [address] Absolute Neut 5.7 X10 3/uL Normal 2.0-7.7 [facility] Comment on above: Performed By: #### L 300.8000, L100.0100, L500.2500 #### [facility] [address] [place], [address] Basophils/100 WBC (Bld) 0.3 % Normal 0-1 [facility] Comment on above: Performed By: #### L 300.8000, L100.0100, L500.2500 #### [facility] [address] [place], [address] Eosinophils/100 WBC (Bld) 0.7 % Normal 0-5 [facility] Comment on above: Performed By: #### L 300.8000, L100.0100, L500.2500 #### [facility] [address] [place], [address] Erythrocyte distribution width (RBC) [Ratio] 13.2 % Normal 11.6-14.6 [facility] Comment on above: Performed By: #### L 300.8000, L100.0100, L500.2500 #### [facility] [address] [place], [address] Hematocrit (Bld) [Volume fraction] 39.8 % Normal 37-47 [facility] Comment on above: Performed By: #### L 300.8000, L100.0100, L500.2500 #### [facility] [address] [place], [address] Hemoglobin (Bld) [Mass/Vol] 12.6 g/dL Normal 12.0-15.0 [facility] Comment on above: Performed By: #### L 300.8000, L100.0100, L500.2500 #### [facility] [address] [place], [address] IG% 0.200 Normal 0.0-0.9 [facility] Comment on above: Result Comment: IG% - Immature Granulocytes (promyelocytes, myelocytes and metamyelocytes) > 1% indicates that a LEFT SHIFT is Present. Performed By: #### L 300.8000, L100.0100, L500.2500 #### [facility] [address] [place], [address] Lymphocytes/100 WBC (Bld) 28.5 % Normal 19-41 [facility] Comment on above: Performed By: #### L 300.8000, L100.0100, L500.2500 #### [facility] [address] [place], [address] MCH (RBC) [Entitic mass] 29.9 pg Normal 27.0-32.0 [facility] Comment on above: Performed By: #### L 300.8000, L100.0100, L500.2500 #### [facility] [address] [place], [address] MCHC (RBC) [Mass/Vol] 31.7 g/dL Low 32-36 [facility] Comment on above: Performed By: #### L 300.8000, L100.0100, L500.2500 #### [facility] [address] [place], [address] MCV (RBC) [Entitic vol] 94.3 fL Normal 81-99 [facility] Comment on above: Performed By: #### L 300.8000, L100.0100, L500.2500 #### [facility] [address] [place], [address] Monocytes/100 WBC (Bld) 5.6 % Normal 0-10 [facility] Comment on above: Performed By: #### L 300.8000, L100.0100, L500.2500 #### [facility] [address] [place], [address] Neutrophils/100 WBC (Bld) 64.7 % Normal 47-70 [facility] Comment on above: Performed By: #### L 300.8000, L100.0100, L500.2500 #### [facility] [address] [place], [address] Nucleated RBC (Bld) [#/Vol] 0 10*3/uL Normal 0-5 [facility] Comment on above: Performed By: #### L 300.8000, L100.0100, L500.2500 #### [facility] [address] [place], [address] Platelet mean volume (Bld) [Entitic vol] 8.8 fL Normal 6.2-12.0 [facility] Comment on above: Performed By: #### L 300.8000, L100.0100, L500.2500 #### [facility] [address] [place], [address] Platelets (Bld) [#/Vol] 431 10*3/uL Normal 150-450 [facility] Comment on above: Performed By: #### L 300.8000, L100.0100, L500.2500 #### [facility] [address] [place], [address] RBC (Bld) [#/Vol] 4.22 10*6/uL Normal 4.2-5.4 [facility] Comment on above: Performed By: #### L 300.8000, L100.0100, L500.2500 #### [facility] [address] [place], [address] RDW SD 45.5 fl High 35.1-43.9 [facility] Comment on above: Performed By: #### L 300.8000, L100.0100, L500.2500 #### [facility] [address] [place], [address] WBC (Bld) [#/Vol] 8.8 10*3/uL Normal 4.4-11.[address] 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 FINDINGS: LINES/DEVICES: None. LUNGS: Lungs symmetrically mildly hyperexpanded. Chronic symmetric medial lower lung eventration. No consolidation, edema or effusion. No pneumothorax. MEDIASTINUM AND CARDIOVASCULAR STRUCTURES: Cardiac silhouette not enlarged. BONES AND SOFT TISSUES: Unremarkable. RAD/Chest 1 View (Portable) IMPRESSION: Hyperexpanded lungs as can be seen with chronic obstructive pulmonary disease. No radiographic evidence of consolidative pneumonia or florid edema. Electronically Signed: Michael Chappell MD at 20:06 EST , CC: VERN Rice; Dr. Wanda uMrphy MD Rail Filler: Signed Normal [facility] D-Dimer Quantitative (DVT/PE )on 09-29-2023 D-DIMER QUANT 0.39 FEU/ug/m Normal 0.27-0.49 [facility] Comment on above: Result Comment: NORM AL D-Dimer level (<0.50) indicates no DVT or PE. Performed By: #### L 300.8000, L100.0100, L500.2500 #### [facility] [address] [facility] [place], [address] Determination of erythrocyte mean corpuscular volume (MCV)Ordered By: Wanda Murphy on 09-29-2023 MCV (RBC) [Entitic vol] 94.3 fL 81-99 [facility] Emergency Department Summary on 09-29-2023 Emergency Department Summary [facility] Medical Records Department [address] [place] [address] Emergency Department Summary 09/29/23 MR#: [id number] Acct: [id number] Name: MELANIE BATISTA Rep #: [id number] : 1985 37 From: Kyrie PORRAS PCP: VERN Morrow Status:DEP ER Location: ED I have personally performed a face to face assessment of the patient and have reviewed the WOLF Note. Patient presents secondary to sharp intermittent right sided chest pain for the past 3 days. She has a history of prior DVT and placental clots during and is concerned for possible PE. She has family history of PE as well. No recent cough or congestion. Patient sitting upright in bed no acute distress. She is anxious but in no distress. Head and neck examination unremarkable. Heart is regular rate and rhythm. Lung sounds are clear. Chest wall exam reveals reproducible tenderness in the right anterior chest. No crepitus. Abdomen is soft and nontender. Neuro exam is unremarkable. Lower extremity examination feels no obvious edema or tenderness. EKG is sinus rhythm with no evidence of ischemia. Portable chest x-ray per my interpretation reveals no obvious abnormalities. Lab work is unremarkable including negative troponin and D-dimer. Patient is reassured with these findings. She will continue supportive care. Return instructions given. HPI History of Present Illness Chief Complaint: Chest Pain Narrative Narrative: Patient is a 37-year-old female with history of DVT of the right lower extremity, thrombus to the placenta during her last which was 1 year ago. Patient does have history of having a tubal ligation, presenting to the emergency department 3 days of sharp right-sided chest pain worse with inspiration. Patient states it started 3 days ago, she denies any trauma, she denies any coughing or fever or chills. Patient states that she became more anxious about this pain as ago some sharp to dull, she is here for evaluation. She denies any recent travel, shows any recent surgeries. [facility] Medical History Alcohol use Anemia Anemia affecting Anxiety Asthma Back pain Chest pain Encounter for insertion of mirena IUD Frequency of micturition History of COVID-19 History of edema Hypertension IUGR (intrauterine growth restriction) Leg cramps Restless legs Smoker Sterilization Syncope Urgency of micturition Urinary tract infection Vaginal delivery Wears glasses Home Medications magnesium oxide 500 mg capsule 500 mg PO DAILY 01/04/22 [History Last Taken 07/26/22 20:00 500 mg] potassium 99 mg tablet 99 mg PO DAILY 02/10/22 [History Last Taken 07/26/22 20:00 99 mg] meloxicam 15 mg tablet 15 mg PO DAILY 09/29/23 [History Last Taken Unknown] Allergy/AdvReac Type Severity Reaction Status Date / Time latex Allergy Severe Hives Verified 09/29/23 18:32 coconut Allergy Mild Rash Verified 09/29/23 18:32 Sulfa (Sulfonamide Allergy Fever and Verified 09/29/23 18:32 Antibiotics) skin rash clarithromycin [From Biaxin] AdvReac Severe Vomiting Verified 09/29/23 18:32 Family History Father Diabetes Heart disease Hypertension Hyperlipidemia Surgical History H/O rotator cuff surgery History of wisdom tooth extraction, class II edentulism Hx of appendectomy Social History household members: spouse Smoking Status: Former smoker Electronic Cigarette Use: with nicotine alcohol intake: never do you feel safe at home: Yes 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 Positive for right-sided chest pain, worse with inspiration Respiratory: Negative for any cough, sputum production, hemoptysis, dyspnea, dyspnea on exertion, orthopnea Gastrointestinal: Negative for any abdominal pain, nausea, vomiting, diarrhea, constipation, blood in stool, blood in vomit : Negative for any urinary frequency, dysuria, retention, blood in urine Muscle skeletal: Negative for any neck pain, back pain Neurological: Negative for any headache, syncope, dizziness Skin: Negative for any rashes, itching, abrasions, lacerations Psychiatric: Negative for any depression, anxiety, stress, suicidal ideation, homicidal ideation Hematologic: Negative for any excessive bruising, easy bleeding EXAM Physical Exam Narrative Exam Narrati (more content not included)... Normal [facility] Erythrocyte distribution wid th ratioOrdered By: Wanda Murphy on 09-29-2023 Erythrocyte distribution width (RBC) [Ratio] 13.2 % 11.6-14.6 [facility] Erythrocyte distribution wid th standard deviationOrdered By: Wanda Murphy on 09-29-2023 Erythrocyte distribution width (RBC) [Entitic vol] 45.5 fL 35.1-43.9 [facility] Hematocrit Auto (Bld) [Volum e fraction]Ordered By: Wanda Murphy on 09-29-2023 Hematocrit (Bld) [Volume fraction] 39.8 % 37-47 [facility] Immature granulocytes/100 WB C Auto (Bld)Ordered By: Wanda Murphy on 09-29-2023 Immature granulocytes/100 WBC (Bld) 0.200 % 0.0-0.9 [facility] Comment on above: IG% - Immature Granu locytes (promyelocytes, myelocytes and metamyelocytes) > 1% indicates that a LEFT SHIFT is Present. L501.4020on 09-29-2023 TROPONIN-I HS 4 pg/mL Normal 3.0-54.0 [facility] Comment on above: Order Comment: 'TROP ' Serial specimen #1, #2 or #3: 1 Result Comment: Madison avalos Note: New Test Units and Gender Specific Reference Ranges. For more information see Policy Stat Procedure [place] High Sensitivity Troponin (TNIH) and attachments. Performed By: #### L 501.4020 #### [facility] [address] [place], [address] Laboratory - Chemistry and C hemistry - challengeOrdered By: Wanda Murphy on 09-29-2023 CO2 [Moles/Vol] 30.0 mmol/L 21.0-32.0 [facility] Urea nitrogen/Creatinine [Mass ratio] 13.6 mg/mg 10-20 [facility] - Hematology and Cell countsOrdered By: Wanda Murphy on 09-29-2023 MCH (RBC) [Entitic mass] 29.9 pg 27.0-32.0 [facility] MCHC (RBC) [Mass/Vol] 31.7 g/dL 32-36 [facility] Nucleated RBC/100 WBC (Bld) [Ratio] 0 % 0-5 [facility] Platelet mean volume (Bld) [Entitic vol] 8.8 fL 6.2-12.0 [facility] Platelets (Bld) [#/Vol] 431 10*3/uL 150-450 [facility] No Panel InformationOrdered By: Kyrie Casper on 09-29-2023 D-Dimer Quantitative (PE/DVT) 0.39 FEU/ug/m 0.27-0.49 [facility] Comment on above: NORMAL D-Dimer level (<0.50) indicates no DVT or PE. Troponin I High Sensitivity 4 pg/mL 3.0-54.0 [facility] Comment on above: Please Note: New Jennifer t Units and Gender Specific Reference Ranges. For more information see Policy Stat Procedure [place] High Sensitivity Troponin (TNIH) and attachments. No Panel InformationOrdered By: Wanda Murphy on 09-29-2023 Estimated Creatinine Clearance Calc 116.15 ml/min [facility] Estimated GFR (MDRD) Amer 93 mL/min >60 [facility] Comment on above: GFR Calc Estimated GFR (MDRD) Non-Af Amer 77 mL/min >60 [facility] Comment on above: Non- GFR Calc RBC Auto (Bld) [#/Vol]Ordere d By: Wanda Murphy on 09-29-2023 RBC (Bld) [#/Vol] 4.22 10*6/uL 4.2-5.4 [facility] Serum or plasma calcium phillip urement (mass/volume)Ordered By: Wanda Murphy on 09-29-2023 Calcium [Mass/Vol] 9.1 mg/dL 8.5-10.[address] [facility] Serum or plasma creatinine m easurement (mass/volume)Ordered By: Wanda Murphy on 09-29-2023 Creatinine [Mass/Vol] 0.88 mg/dL 0.55-1.02 [facility] Comment on above: The validity of the calculated GFR & GFRAA in patients over 70 years has not been determined. Clinical correlation is essential. Serum or plasma urea nitroge n measurement (mass/volume)Ordered By: Wanda Murphy on 09-29-2023 Urea nitrogen [Mass/Vol] 12 mg/dL 7-18 [facility] Thin prep Papanicolaou smear with manual screeningOrdered By: Wanda Murphy on 09-29-2023 Thin prep Papanicolaou smear with manual screening 4 5-15 [facility] Office Visiton 09-27-2023 Follow-up visit [id number] Melanie Batista 1985 F Date Provider Department Center 09/27/2023 [id number] JI [facility] None No family history on file Level of Service:88881 [place] OFFICE/OUTPATIENT NEW LOW MDM 30 MINUTES Reason for Visit and Comments: New Patient [542] - Right elbow, referred from [facility] Progress Noteon 09-27-2023 Progress Note [facility] [address] [place] [address] Dept: [phone] Dept Chief Complaint Patient presents with New Patient Right elbow, referred from [facility] Melanie Batista is a 37 y.o. right [...] Wt 205 lb (93 kg) BMI 27.05 kg/m? Ortho Exam Comprehensive Exam of the RIGHT [...] Ji MD Hand and Upper Extremity Surgery [facility] Department of Orthopaedics and Sports Medicine 09/27/2023 (Please note that portions of this note may have been completed with a voice recognition program. Efforts were made to edit the dictations but occasionally words are mis-transcribed.) Normal [facility] Laboratory - Chemistry and C hemistry - challengeOrdered By: Dr. Wei on 09-08-2022 Free T4 [Mass/Vol] 0.89 ng/dL 0.76-1.[address] [facility] No Panel InformationOrdered By: Dr. Wei on 09-08-2022 Thyroid Stimulating Hormone (TSH) 1.36 uIU/mL 0.358-3.74 [facility] Serum or plasma thyroperoxid ase antibody assay (units/volume)Ordered By: Dr. Wei on 09-08-2022 TPO Ab Qn 25 [IU]/mL 0-34 [facility] Comment on above: Performed at: [address] [id number] Director: Ramez Anaya PhD, Phone: [phone] Absolute lymphocyte countOrd ered By: Dr. Wei on 07-27-2022 Lymphocytes Auto (Unsp spec) [#/Vol] 1.90 10*3/uL 0.83-4.51 [facility] Basophil percentageOrdered B y: Dr. Wei on 07-27-2022 Basophils/100 WBC (Bld) 0.3 % 0-1 [facility] Eosinophils/100 WBC (Bld) 1.1 % 0-5 [facility] Neutrophils (Bld) [#/Vol] 7.7 10*3/uL 2.0-7.7 [facility] Neutrophils/100 WBC (Bld) 71.4 % 47-70 [facility] WBC (Bld) [#/Vol] 10.8 10*3/uL 4.4-11.0 [facility] Blood erythrocytes count (nu mber/volume)Ordered By: Dr. Wei on 07-27-2022 RBC (Bld) [#/Vol] 3.76 10*6/uL 4.2-5.4 [facility] Blood hemoglobin measurement (mass/volume)Ordered By: Dr. Wei on 07-27-2022 Hemoglobin (Bld) [Mass/Vol] 11.9 g/dL 12.0-15.0 [facility] Blood lymphocytes/100 leukoc ytesOrdered By: Dr. Wei on 07-27-2022 Lymphocytes/100 WBC (Bld) 17.5 % 19-41 [facility] Blood monocytes/100 leukocyt esOrdered By: Dr. Wei on 07-27-2022 Monocytes/100 WBC (Bld) 8.7 % 0-10 [facility] Blood platelet mean volumeOr dered By: Dr. Wei on 07-27-2022 Platelet mean volume (Bld) [Entitic vol] 9.7 fL 6.2-12.0 [facility] Determination of erythrocyte mean corpuscular volume (MCV)Ordered By: Dr. Wei on 07-27-2022 MCV (RBC) [Entitic vol] 96.3 fL 81-99 [facility] Hematocrit Auto (Bld) [Volum e fraction]Ordered By: Dr. Wei on 07-27-2022 Hematocrit (Bld) [Volume fraction] 36.2 % 37-47 [facility] - Hematology and Cell countsOrdered By: Dr. Wei on 07-27-2022 Erythrocyte distribution width (RBC) [Entitic vol] 48.9 fL 35.1-43.9 [facility] Erythrocyte distribution width (RBC) [Ratio] 13.9 % 11.6-14.6 [facility] Immature granulocytes/100 WBC (Bld) 1.000 % 0.0-0.9 [facility] Comment on above: IG% - Immature Granu locytes (promyelocytes, myelocytes and metamyelocytes) > 1% indicates that a LEFT SHIFT is Present. MCH (RBC) [Entitic mass] 31.6 pg 27.0-32.0 [facility] Nucleated RBC/100 WBC (Bld) [Ratio] 0 % 0-5 [facility] MCHC Auto (RBC) [Mass/Vol]Or dered By: Dr. Wei on 07-27-2022 MCHC (RBC) [Mass/Vol] 32.9 g/dL 32-36 [facility] Platelets bldOrdered By: Dr. Wei on 07-27-2022 Platelets (Bld) [#/Vol] 256 10*3/uL 150-450 [facility] Laboratory - Chemistry and C hemistry - challengeon 07-21-2022 Glucose Ql (U) Negative [facility] Laboratory - Urinalysison Protein Ql (U) Negative [facility] - Chemistry and C hemistry - challengeon 07-11-2022 Glucose Ql (U) Negative [facility] Laboratory - Urinalysison Protein Ql (U) Negative [facility] - Chemistry and C hemistry - challengeon 07-03-2022 Glucose Ql (U) Negative [facility] Laboratory - Urinalysison Protein Ql (U) Negative [facility] - Chemistry and C hemistry - challengeon 06-21-2022 Glucose Ql (U) Negative [facility] Laboratory - Urinalysison Protein Ql (U) Negative [facility] - Chemistry and C hemistry - challengeon 06-09-2022 Glucose Ql (U) Negative [facility] Laboratory - Urinalysison Protein Ql (U) Negative [facility] Absolute lymphocyte countOrd ered By: Dr. Wei on 05-22-2022 Lymphocytes Auto (Unsp spec) [#/Vol] 1.47 10*3/uL 0.83-4.51 [facility] Basophil percentageOrdered B y: Dr. Wei on 05-22-2022 Basophils/100 WBC (Bld) 0.2 % 0-1 [facility] Eosinophils/100 WBC (Bld) 0.6 % 0-5 [facility] Neutrophils (Bld) [#/Vol] 7.7 10*3/uL 2.0-7.7 [facility] Neutrophils/100 WBC (Bld) 77.5 % 47-70 [facility] WBC (Bld) [#/Vol] 9.9 10*3/uL 4.4-11.[address] [facility] Blood erythrocytes count (nu mber/volume)Ordered By: Dr. Wei on 05-22-2022 RBC (Bld) [#/Vol] 3.39 10*6/uL 4.2-5.4 [facility] Blood hemoglobin measurement (mass/volume)Ordered By: Dr. Wei on 05-22-2022 Hemoglobin (Bld) [Mass/Vol] 10.9 g/dL 12.0-15.0 [facility] Blood lymphocytes/100 leukoc ytesOrdered By: Dr. Wei on 05-22-2022 Lymphocytes/100 WBC (Bld) 14.9 % 19-41 [facility] Blood monocytes/100 leukocyt esOrdered By: Dr. Wei on 05-22-2022 Monocytes/100 WBC (Bld) 6.3 % 0-10 [facility] Blood platelet mean volumeOr dered By: Dr. Wei on 05-22-2022 Platelet mean volume (Bld) [Entitic vol] 9.1 fL 6.2-12.0 [facility] Determination of erythrocyte mean corpuscular volume (MCV)Ordered By: Dr. Wei on 05-22-2022 MCV (RBC) [Entitic vol] 98.8 fL 81-99 [facility] Gestational diabetes screen 1-hour screen with 50g oral glucose loadOrdered By: Dr. Wei on 05-22-2022 Glucose 1 Hr post 50 g glucose PO [Mass/Vol] 88 mg/dL 70-140 [facility] Hematocrit Auto (Bld) [Volum e fraction]Ordered By: Dr. Wei on 05-22-2022 Hematocrit (Bld) [Volume fraction] 33.5 % 37-47 [facility] - Hematology and Cell countsOrdered By: Dr. Wei on 05-22-2022 Erythrocyte distribution width (RBC) [Entitic vol] 45.9 fL 35.1-43.9 [facility] Erythrocyte distribution width (RBC) [Ratio] 12.9 % 11.6-14.6 [facility] Immature granulocytes/100 WBC (Bld) 0.500 % 0.0-0.9 [facility] Comment on above: IG% - Immature Granu locytes (promyelocytes, myelocytes and metamyelocytes) > 1% indicates that a LEFT SHIFT is Present. MCH (RBC) [Entitic mass] 32.2 pg 27.0-32.0 [facility] Nucleated RBC/100 WBC (Bld) [Ratio] 0 % 0-5 [facility] MCHC Auto (RBC) [Mass/Vol]Or dered By: Dr. Wei on 05-22-2022 MCHC (RBC) [Mass/Vol] 32.5 g/dL 32-36 [facility] Platelets bldOrdered By: Dr. Wei on 05-22-2022 Platelets (Bld) [#/Vol] 295 10*3/uL 150-450 [facility] Laboratory - Chemistry and C hemistry - challengeon 05-08-2022 Glucose Ql (U) Negative [facility] Work Phone: Laboratory - Urinalysison Protein Ql (U) Negative [facility] Work Phone: Z Miscellaneous Sendouton Patient Results ----- Normal [facility] Comment on above: Order Comment: Relea se to patient->Automatic 03874&Blood Reason for preventing automatic release->Other Release to patient->Manual release only 66168&Blood toxoplasma to pallo alto Result Comment: Marya ent Results scanned into [employer]. Performed By: #### D RVTI #### [address] [id number] Performed by: see below Normal [facility] Comment on above: Order Comment: Relea se to patient->Automatic 67418&Blood Reason for preventing automatic release->Other Release to patient->Manual release only 58587&Blood toxoplasma to pallo alto Result Comment: Toxoplasma Serology Lab ([facility]) Performed By: #### D RVTI #### [address] [address] Progress Noteon 04-11-2022 [employer] Authentication Interface Message [facility] Neonatology Consult Note DOS: 04/11/2022 Reason for consult: IUGR Present for Consult:Tyra Referring/Prequesting Provider: Selene/Jaime History: Melanie is a 36 y.o., female at 23w1d per mother and U/S Pertinent Medications: Scheduled Meds:PNV, Zofran, Magnesium and Potassium Imaging/ labs: Ultrasound better today AC 11%, weight 428g 17%ile Counseling: We talked about causes of IUGR and good that measurements better today. We talked about reasons to deliver early. We will talk again if growth not good in the future. Discussed that if is small enough, may requiring direct admission to the NICU due to the risk of hypoglycemia and difficulty maintaining temperature, for nutritional and thermoregulatory support. We discussed the possible need for IV fluids/ nutrition depending upon the size of the baby as well as NG/ PO feeds We discussed the potential need for supplementation with formula and the high likelihood of needing fortification of feeds to grow Explained may need the support of heated and humidified isolette to maintain a neutral thermal environment. Discussed that the minimum weight for discharge would be 1800g. Length of hospitalization Benefits of Breast milk Location of care: [place] if no problems Level of care/resuscitation none until at least 24 weeks Recommendations: Delivery at: [place] vs [facility] at delivery if needed Please don't hesitate to contact us with any further questions The total patient time of the visit was 30 minutes, >50% counseling/ direct patient care Sue Herrera MD [facility] Bottle Blowing Machine Tender Authentication Interface Message Text Maternal Medicine Consult Date of Service: 04/11/2022 Referring Provider: Richy Wei Primary Care Provider: Marii Primary Care, MD Mj Reason for Consult: Dr. Richy Wei requests that Melanie be evaluated due to AC<10th percentile and suspected early FGR. HISTORY OF PRESENTING PROBLEM: Melanie is a 36 y.o. at 22w5d gestation. On outside US and then confirmed by a targeted anatomy at [facility], AC was less than 10th percentile. She is here for discussion of early IUGR and review of today's US and labs. growth restriction should be used to describe fetuses with an estimated weight or abdominal circumference that is <10th percentile for gestational age. The etiology of growth restriction can be categorized into maternal, , and placental. Maternal medical conditions include pregestational diabetes mellitus, renal insufficiency, autoimmune disease, cyanotic cardiac disease, -related hypertensive diseases, antiphospholipid antibody syndrome. Other causes include AODA and smoking, multiple gestation, teratogen exposure, infection, genetic and structural disorders, placental disorders and umbilical cord abnormalities. growth restriction increases the risks of intrauterine demise, morbidity, and . Furthermore, epidemiologic studies have revealed that growth-restricted fetuses are predisposed to the development of cognitive delay in childhood and diseases in adulthood (obesity, type 2 DM, CAD, stroke) growth restriction is associated with a significantly increased risk of stillbirth, with the most severely affected fetuses being at greatest risk. At weights <10th percentile, the risk of is twice the background rate of fetuses of normal growth (1.5%). The risk of increases to 2.5% at weights <5th percentile. If the fetus meets US criteria for FGR, HALINA/BPP and Doppler blood flow studies of the umbilical artery are recommended. Since genetic/congenital abnormalities are associated with FGR, a targeted anatomy scan is indicated. is reduced by a third when UA Doppler S/D ratio is used as assessment. AEDF or REDF indicate an increased risk for morbidity and mortality. Serial testing is recommended. FGR alone may be associated with aneuploidy but risk is increased if structural abnormalities also are present. Also FGR detected earlier in gestation (<32 weeks') or combined with polyhydramnios is more commonly associated with aneuploidy. Genetic counseling and genetic screening/testing should be offered. Most growth-restricted fetuses can be adequately evaluated with serial ultrasonography every 3-4 weeks; ultrasound assessment of growth should not be performed more frequently than every 2 weeks because the inherent error associated with ultrasonographic measurements can preclude an accurate assessment of interval growth. Optimal delivery timing has not been well determined, but the 2019 [facility] Consult Series, Diagnosis and Management of Growth Restriction, further categorizes management of isolated FGR based on the percentile of estimated weight. For estimated weight between the 3rd and 10th percentile and normal umbilical artery Doppler, delivery is suggested at 38 0/7 and 39 0/7 weeks of gestation. In cases of isolated growth restriction with an estimated weight less than the third percentile, delivery is recommended at 37 0/7 weeks of gestation or at diagnosis if diagnosed earlier. Earlier delivery is indicated in cases of absent or reverse umbilical artery flow. When delivery for FGR is anticipated before 34 weeks', delivery should be planned at a center with a NICU and, ideally, consultation with a maternal- specialist. corticosteroids are recommended for delivery anticipated <34 weeks' because they are associated with improved outcomes. They are also recommended for anticipated delivery from 34 0/7 to 36 6/7 weeks' if at risk of delivery within 7 days and who have not received a previous course of corticosteroids. For cases <32 weeks', magnesium sulfate should be considered for and neuroprotection. Testing done includes: aneuploidy screening and invasive testing, TORCH infection serology, detailed US evaluation, and detailed genetic history and counseling. Monitoring includes serial ultrasound for growth, twice weekly biophysical profile, and weekly evaluation of the umbilical artery Dopplers at specified time. ASSESSMENT: No FGR at this time. Labs - cfDNA, TORCH are WNL. US shows no or uteroplacental abnormalities. MCA and Dopplers normal. IF FGR RECURS - See [facility] (modified) recommendations below. Ultrasound Results: 1. Single, living IUP at 23w 1d by clinical OMKAR. 2. There is a (more content not included)... Normal [facility] Z Miscellaneous Sendouton Patient Results ----- Normal [facility] Comment on above: Order Comment: Relea se to patient->Automatic 72785&Blood Reason for preventing automatic release->Other Release to patient->Manual release only 40340&Blood toxoplasma to pallo alto Result Comment: Test Name Result Reference Range HSV 1 IgM Screen Negative Negative HSV 2 IgM Screen Negative Negative HSV IgM is detectable in serum from >90% of patients with primary HSV infection. However, HSV IgM cannot be reliably used to diagnose acute/recent infection as it is also found in 30% of patients with reactivated HSV. This test may not distinguish between HSV-1 IgM and HSV-2 IgM due to cross-reactivity. To diagnose acute genital or mucosal HSV infection, direct detection from a lesion by culture or molecular methods is preferred. HSV IgM positivity should be confirmed by HSV-1, 2 type specific IgG testing. This test was developed and its analytical performance characteristics have been determined by [facility], [place], [place]. It has not been cleared or approved by the FDA. This assay has been validated pursuant to the CLIA regulation and is used for clinical purposes Performed By: #### D RVTI #### [place] [address] Performed by: see below [facility] Comment on above: Order Comment: Relea se to patient->Automatic 97378&Blood Reason for preventing automatic release->Other Release to patient->Manual release only 08783&Blood toxoplasma to pallo alto Result Comment: Testing Performed. [facility] [address] [place] [id number] Performed By: #### D RVTI #### [place] [address] Test Name ----- [facility] Comment on above: Order Comment: Relea se to patient->Automatic 18658&Blood Reason for preventing automatic release->Other Release to patient->Manual release only 44382&Blood toxoplasma to pallo alto Result Comment: HSV 1/2 AB (IgM) IFA with Reflex to Titer Performed By: #### D RVTI #### [address] [address] Beta 2 Glycoprotein Abson Beta 2 Glycoprotein IgG <9.4 Normal [facility] Comment on above: Order Comment: Relea se to patient->Automatic 69969&Blood Reason for preventing automatic release->Other Release to patient->Manual release only 25263&Blood toxoplasma to pallo alto Result Comment: REFERENCE VALUE <15.0 (Negative) Performed By: #### D RVTI #### [address] [address] Beta 2 Glycoprotein IgM <9.4 Normal [facility] Comment on above: Order Comment: Relea se to patient->Automatic 54424&Blood Reason for preventing automatic release->Other Release to patient->Manual release only 54256&Blood toxoplasma to pallo alto Result Comment: REFERENCE VALUE <15.0 (Negative) Test Performed by: [place] [id number] Russian Teacher: Vineet Garcia M.D. Ph.D.; CLIA# [id number] Performed By: #### D RVTI #### [address] [address] [place] Miscellaneous Sendouton 03-31-2022 [place] Miscellaneous Sendout SEE COMMENTS Normal [facility] Comment on above: Order Comment: Relea se to patient->Automatic 93253&Blood Reason for preventing automatic release->Other Release to patient->Manual release only 74587&Blood toxoplasma to pallo alto Result Comment: Test Result Flag Unit RefValue Cytomegalovirus Ab, IgM and IgG, S Cytomegalovirus Ab, IgM, S Negative Negative Cytomegalovirus Ab, IgG, S Positive AB Negative Test Performed by: [facility] [address] Russian Teacher: Vineet Garcia M.D. Ph.D.; CLIA# [id number] Performed By: #### D RVTI #### [place] [id number] Parvovirus B19 IgG AND M Abo n 03-31-2022 Parvovirus Abs Interpretation SEE BELOW Normal [facility] Comment on above: Order Comment: Relea se to patient->Automatic 36126&Blood Reason for preventing automatic release->Other Release to patient->Manual release only 76227&Blood toxoplasma to pallo alto Result Comment: Resu lts suggest past infection. ADDITIONAL INFORMATION This test has been modified from the lumber bearer's instructions. Its performance characteristics were determined by [facility] in a manner consistent with CLIA requirements. This test has not been cleared or approved by the U.S. Food and Drug Administration. Test Performed by: [facility] [address] Russian Teacher: Vineet Garcia M.D. Ph.D.; CLIA# [id number] Performed By: #### P ARVO #### [place] [address] Parvovirus B19 IgG Positive Abnormal Negative [facility] Comment on above: Order Comment: Relea se to patient->Automatic 97196&Blood Reason for preventing automatic release->Other Release to patient->Manual release only 38091&Blood toxoplasma to pallo alto Performed By: #### P ARVO #### [address] [id number] Parvovirus B19 IgM Negative Normal Negative [facility] Comment on above: Order Comment: Relea se to patient->Automatic 99768&Blood Reason for preventing automatic release->Other Release to patient->Manual release only 96414&Blood toxoplasma to pallo alto Performed By: #### P ARVO #### [address] [address] Rapid Plasma Reaginon 2021 Rapid Plasma Reagin Non-Reactive Normal [facility] Comment on above: Order Comment: Relea se to patient->Automatic 74724&Blood Reason for preventing automatic release->Other Release to patient->Manual release only 60629&Blood toxoplasma to pallo alto Result Comment: REFE RENCE RANGE: Nonreactive A reactive RPR should be verified by an FTA to confirm active infection. Performed By: #### R KS #### [address] [address] Rubella IgG Abon 03-31-2022 Rubella IgG Ab Positive Normal [facility] Comment on above: Order Comment: Relea se to patient->Automatic 28734&Blood Reason for preventing automatic release->Other Release to patient->Manual release only 44138&Blood toxoplasma to pallo alto Result Comment: Resu lts suggest response to immunization or prior exposure to the virus. REFERENCE VALUE Vaccinated: Positive (>=1.0 AI) Unvaccinated: Negative (<=0.7 AI) Performed By: #### R UBLG #### [address] [id number] Rubella IgG Index 1.4 Normal [facility] Comment on above: Order Comment: Relea se to patient->Automatic 04167&Blood Reason for preventing automatic release->Other Release to patient->Manual release only 80460&Blood toxoplasma to pallo alto Result Comment: Test Performed by: [place] [address] Russian Teacher: Vineet Garcia M.D. Ph.D.; CLIA# [id number] Performed By: #### R UBLG #### [address] [address] Anti-Thrombin III Activityon 03-30-2022 Anti-Thrombin III Activity 84 % Low 88-135 [facility] Comment on above: Order Comment: Relea se to patient->Automatic 01697&Blood Reason for preventing automatic release->Other Release to patient->Manual release only 98241&Blood toxoplasma to pallo alto Performed By: #### D RVTI #### [address] [address] Cardiolipin ABon 03-30-2022 IgG Cardiolipin Ab <9.4 Normal [facility] Comment on above: Order Comment: Relea se to patient->Automatic 45086&Blood Reason for preventing automatic release->Other Release to patient->Manual release only 30220&Blood toxoplasma to pallo alto Result Comment: REFERENCE VALUE <15.0 (Negative) Test Performed by: [place] [address] Russian Teacher: Vineet Garcia M.D. Ph.D.; CLIA# [id number] Performed By: #### D RVTI #### [address] [address] IgM Cardiolipin Ab <9.4 Normal [facility] Comment on above: Order Comment: Relea se to patient->Automatic 69418&Blood Reason for preventing automatic release->Other Release to patient->Manual release only 88323&Blood toxoplasma to pallo alto Result Comment: REFERENCE VALUE <15.0 (Negative) Performed By: #### D RVTI #### [address] [address] DRVVT Mix and Confirm Reflex on 03-30-2022 DRVVT Mix Ratio 1.23 ratio High <1.20 [facility] Comment on above: Order Comment: Relea se to patient->Automatic 70303&Blood Reason for preventing automatic release->Other Release to patient->Manual release only 09801&Blood toxoplasma to pallo alto Result Comment: Test Performed by: [place] [address] Russian Teacher: Vineet Garcia M.D. Ph.D.; CLIA# [id number] Performed By: #### D RVTC #### [address] [address] DRVVT Confirmation Ratio 1.25 ratio High <1.20 [facility] Comment on above: Order Comment: Relea se to patient->Automatic 20805&Blood Reason for preventing automatic release->Other Release to patient->Manual release only 98559&Blood toxoplasma to pallo alto Result Comment: Test Performed by: [place] [address] Russian Teacher: Vineet Garcia M.D. Ph.D.; CLIA# [id number] Performed By: #### D RVTC #### [address] [address] DRVVT Screen Ratio with Refl exon 03-30-2022 DRVVT Interpretation SEE BELOW Normal [facility] Comment on above: Order Comment: Relea se to patient->Automatic 31588&Blood Reason for preventing automatic release->Other Release to patient->Manual release only 97489&Blood toxoplasma to pallo alto Result Comment: Impr ession: 1) Based on the dilute Tha's viper venom time testing, data are consistent with presence of lupus anticoagulant, provided anticoagulant effect can be excluded; see comments and suggest clinical correlation. 2) Suggest repeat testing at 3 months or longer (and greater than one week off anticoagulants) to confirm lupus anticoagulant persistence. 3) If additional evaluation for presence of antiphospholipid antibodies is clinically indicated, consider obtaining serologic testing for IgG and IgM anti- cardiolipin and/or anti-beta-2 glycoprotein 1 antibodies. Comments: Prolonged dilute Tha's viper venom time (DRVVT) screen, mix and confirm ratios suggest presence of lupus anticoagulant (LAC). Note: Anticoagulation therapy effects such as warfarin, excess heparin, direct thrombin inhibitors (DTI) (e.g. dabigatran (Pradaxa), argatroban (Ancova), bivalirudin (Angiomax)), direct factor Xa inhibitors (e.g. rivaroxaban (Xarelto), apixaban (Eliquis), edoxaban (Savaysa)) may result in a false positive assay performance for LAC. Suggest clinical correlation and repeat testing remote (greater than one week) from anticoagulation therapy, if indicated. Note: Currently, the International Society on Thrombosis and Haemostasis (ISTH) and the Clinical and Laboratory Standards [place] (CLSI) recommend testing for lupus anticoagulant with at least two phospholipid dependent clotting time assays based on different coagulation pathways and principles (e.g. lupus-sensitive APTT, DRVVT, etc.). If clinically indicated, consider future follow up testing Coagulation Consultation ALUPP (Lupus Anticoagulant Profile). Test Performed by: [place] [address] Russian Teacher: Vineet Garcia M.D. Ph.D.; CLIA# [id number] Performed By: #### D TI #### [place] [address] DRVVT Screen Ratio 1.29 ratio High <1.20 [facility] Comment on above: Order Comment: Relea se to patient->Automatic 47551&Blood Reason for preventing automatic release->Other Release to patient->Manual release only 55038&Blood toxoplasma to pallo alto Result Comment: Test Performed by: [place] [id number] Russian Teacher: Vineet Garcia M.D. Ph.D.; CLIA# [id number] Performed By: #### D RVTI #### [place] [address] Protein C Activity, Chromoge nicon 03-30-2022 Protein C Activity, Chromogenic 134 % Normal 70 - 150 [facility] Comment on above: Order Comment: Relea se to patient->Automatic 62048&Blood Reason for preventing automatic release->Other Release to patient->Manual release only 12290&Blood toxoplasma to pallo alto Result Comment: ADDITIONAL INFORMATION This test has been modified from the lumber bearer's instructions. Its performance characteristics were determined by [facility] in a manner consistent with CLIA requirements. This test has not been cleared or approved by the U.S. Food and Drug Administration. Test Performed by: [place] [address] Russian Teacher: Vineet Garcia M.D. Ph.D.; CLIA# [id number] Performed By: #### P RTC3 #### [address] [address] Protein S Antigen, Plasmaon 03-30-2022 Protein S Ag, Free 80 % Normal 50 - 160 [facility] Comment on above: Order Comment: Relea se to patient->Automatic 48452&Blood Reason for preventing automatic release->Other Release to patient->Manual release only 75809&Blood toxoplasma to pallo alto Result Comment: ADDITIONAL INFORMATION This test has been modified from the lumber bearer's instructions. Its performance characteristics were determined by [facility] in a manner consistent with CLIA requirements. This test has not been cleared or approved by the U.S. Food and Drug Administration. Test Performed by: [place] [address] Russian Teacher: Vineet Garcia M.D. Ph.D.; CLIA# [id number] Performed By: #### P STF #### [address] [address] Z Miscellaneous Sendouton Test Name toxoplasma Normal [facility] Comment on above: Order Comment: Relea se to patient->Automatic 21417&Blood Reason for preventing automatic release->Other Release to patient->Manual release only 48625&Blood toxoplasma to pallo alto Performed By: #### D RVTI #### [address] [address] CMV PCR, Quantitativeon CMV PCR, Quantitative Release to patient->Automatic 75095&Blood CMV PCR, Quantitative: NEGATIVE: No CMV DNA DETECTED. Source: [facility] Collected: 03/29/22 13:28 Site: Received : 03/29/22 14:08 CMV PCR, Quantitative FINAL 03/31/22 10:47 NEGATIVE: No CMV DNA DETECTED. - Method: PCR amplification with fluorescent probe detection using [employer] CMV reagents from [employer]. - The quantitative range of this assay is 800 (2.9 log 10) to 400,000,000 (8.6 log 10) IU/mL with a limit of detection of 300 (2.5 log 10) IU/mL. - Comment: This test was developed and its performance determined by [facility]. It has not been cleared or approved by the U.S. Food and Drug Administration. The FDA has determined that such clearance or approval is not necessary. This test is used for clinical purposes. It should not be regarded as investigational or for research. Pursuant to the requirements of CLIA'88, this laboratory has established and verified the test's accuracy and precision. - Reviewed by: Cristina Hunt [facility] Comment on above: Performed By: #### D RVTI #### [address] [address] Factor V Leiden DNA Studyon 03-29-2022 Factor V Leiden DNA Study SEE BELOW Normal [facility] Comment on above: Result Comment: SPEC IMEN: BLOOD TEST: FACTOR V LEIDEN DNA ASSAY RESULT: No mutation detected (only the normal allele was present) COMMENT: Factor V Leiden (FVL) causes activated Protein C Resistance and is a risk factor for thromboembolic disease. Homozygotes for FVL have an 80 fold increased risk of thromboembolic disease compared to persons without the mutation. Heterozygotes have a 5-10 fold increased risk. Individuals with this mutation are candidates for anticoagulant therapy in the postoperative state, in case of prolonged immobilization, oral contraceptive administration and other situations that promote clotting. METHODOLOGY: Real-time polymerase chain reaction (PCR) melt-curve assay using the [employer] and fluorescence resonance energy transfer (FRET) probes. NOTE: This test was developed and its performance determined by [facility]. It has not been cleared or approved by the U.S. Food and Drug Administration. The FDA has determined that such clearance or approval is not necessary. This test is used for clinical purposes. Pursuant to the requirements of CLIA '88, this laboratory has established and verified the test's accuracy and precision. CRISTINA HUNT 04/05/2022 Performed By: #### D TI #### [place] [address] Progress Noteon 03-29-2022 Bottle Blowing Machine Tender Authentication Interface Message Text Maternal Medicine Consult Date of Service: 03/29/2022 Referring Provider: Carolina Wei Primary Care Provider: No Primary Care, MD Mj Reason for Consult: Dr. Carolina Wei requests that Melanie be evaluated due to FGR. HPI: Melanie is a 36 y.o. at 21w0d gestation who presents for evaluation of FGR. Melanie denies nausea, vomiting, vaginal bleeding, vaginal discharge, and/or cramping. OB History Para Term AB Living 7 4 3 1 2 4 SAB IAB Ectopic Multiple Live Births 2 0 0 0 4 # Outcome Date GA Lbr Gutierrez/2nd Weight Sex Delivery Anes PTL Lv 7 Current 6 Term 09/29/20 38w0d 3.6 kg M Vag-Spont N VITO Name: López 5 12/31/18 36w0d 2.75 kg M Vag-Spont None Y VITO Comments: PPROM Name: Devonte 4 Term 12/28/15 38w0d 3.941 kg M Vag-Spont EPI N VITO Comments: IOL for LGA Name: Yang 3 Term 12/01/09 40w0d 3.799 kg M Vag-Spont EPI N VITO Comments: 4th degree perineal laceration Name: Earl 2 SAB 1 SAB Past Medical History: Diagnosis Date Anxiety Depression IUGR (intrauterine growth restriction) affecting care of mother Uncomplicated asthma Past Surgical History: Procedure Laterality Date APPENDECTOMY 2003 ROTATOR CUFF REPAIR Right 2014 WISDOM TOOTH EXTRACTION Allergies Allergen Reactions Biaxin [Clarithromycin] Other (See Comments) Migraines Sulfa Antibiotics Rash Coconut Fatty Acids Rash Latex Hives and Rash Penicillins Hives and Rash Social History Socioeconomic History Marital status: Spouse name: None Number of children: None Years of education: None Highest education level: None Tobacco Use Smoking status: Former Types: Cigarettes Quit date: 2016 Years since quittin.6 Smokeless tobacco: Current Tobacco comments: Pt does when she drives. Uses 1.8 Substance and Sexual Activity Alcohol use: Not Currently Drug use: Never Infections Live with someone with or exposed to TB No History of STI's None Rash or viral illness since last menstruation No 2nd STI GBS No 3rd STI Hx of Chicken Pox Yes Had as a child Other infections COVID Partner has hx of genital herpes No Genetics Age is > than 35y as of estimated date Yes Thalassemia No Neural Tube Defect No Congenital Heart Defect No Down Syndrome No Richard-Sachs No Wendy Disease No Sickle Cell Disease or Trait No Hemophilia, Thrombophilia No Muscular Dystrophy No Cystic Fibrosis No [place]'s Chorea No Intellectual Disability/Autism No Metabolic Disorder No Recurrent Loss, or a Stillbirth No Inherited Genetic or Chromosomal Disorder No Illicit; Rec.drugs; Alcohol since last menses No Family History Problem Relation Age of Onset High Blood Pressure Father Heart Disease Father Diabetes Mellitus I Father DVT Father Heart Attack Father No known problems Sister DVT Sister High Blood Pressure Maternal Grandmother Stroke Paternal Grandmother High Blood Pressure Paternal Grandmother Heart Attack Paternal Grandmother Heart Disease Paternal Grandmother DVT Paternal Grandmother Heart Attack Paternal Grandfather Heart Disease Paternal Grandfather No known problems Son No known problems Son No known problems Son No known problems Son Outpatient Encounter Medications as of 03/29/2022 Medication Sig Dispense Refill ondansetron (ZOFRAN-ODT) 4 MG disintegrating tablet Vit-Fe Fumarate-FA ( VITAMINS PO) Take by mouth MAGNESIUM PO Take 250 mg by mouth ferrous sulfate (FEOSOL) 325 (65 FE) MG TABS tablet Take 65 mg of elemental iron by mouth Potassium 99 MG TABS Take by mouth No facility-administered encounter medications on file as of 03/29/2022. Review of Systems Constitutional: Negative. HENT: Negative. Eyes: Negative. Respiratory: Negative. Cardiovascular: Negative. Gastrointestinal: Negative. Genitourinary: Negative. Musculoskeletal: Negative. Skin: Negative. Neurological: Negative. Endo/Heme/Allergies: Negative. Psychiatric/Behavioral: Negative. PHYSICAL EXAM: There were no vitals taken for this visit. Constitutional: General: She is active. HENT: Head: Atraumatic. Eyes: Extraocular Movements: EOM normal. Conjunctiva/sclera: Conjunctivae normal. Pulmonary: Effort: Pulmonary effort is normal. Abdominal: Comments: gravid uterus Musculoskeletal: Normal range of motion. Neurological: Mental Status: She is alert. X 3. Laboratory Test Results: Hospital Outpatient Visit on 03/29/2022 Component Date Value Ref Range Status Anti-thrombin III Activity 03/29/2022 84 (A) 88 - 135 % Final Ultrasound Results: - Please see Ultrasound test for full details. Assessment/Plan: Melanie Batista is a 36 y.o. at 21w0d with: Active Non-Hospital Problems Diagnosis Date Noted IUGR (intrauterine growth restriction) affecting care of mother 03/29/2022 1. Single, living intrauterine at 22 (more content not included)... Normal [facility] Prothrombin 64857Z DNA Testo n 03-29-2022 Prothrombin 94233S DNA Test SEE BELOW Normal [facility] Comment on above: Result Comment: SPEC IMEN: BLOOD TEST: FACTOR II PROTHROMBIN [id number] RESULT: No mutation detected (only the normal allele was detected) COMMENT: Prothrombin [id number] is a mutation of the prothrombin gene that results in elevated plasma prothrombin levels. Individuals with the mutation have an increased risk for venous thrombosis. The risk of thrombosis is increased ~2-4 fold for heterozygotes and further increased for homozygotes. METHODOLOGY: Real-time polymerase chain reaction (PCR) melt-curve assay using the [employer] and fluorescence resonance energy transfer (FRET) probes. NOTE: This test was developed and its performance determined by [facility]. It has not been cleared or approved by the U.S. Food and Drug Administration. The FDA has determined that such clearance or approval is not necessary. This test is used for clinical purposes. Pursuant to the requirements of CLIA '88, this laboratory has established and verified the test's accuracy and precision. CRISTINA HUNT 04/05/2022 Performed By: #### D RVTI #### [place] [address] Laboratory - Chemistry and C hemistry - challengeon 02-27-2022 Glucose Ql (U) Negative [facility] Work Phone: Laboratory - Urinalysison Protein Ql (U) Negative [facility] Work Phone: Absolute lymphocyte counton 02-10-2022 Lymphocytes Auto (Unsp spec) [#/Vol] 1.54 10*3/uL 0.83-4.51 [facility] Work Phone: Basophil percentageon 2021 Basophils/100 WBC (Bld) 0.2 % 0-1 [facility] Work Phone: Bilirubin [Mass/Vol] 0.40 mg/dL 0.20-1.00 [facility] Work Phone: Comment on above: For patients on eltr ombopag therapy, use of Dimension [place] TBIL is not recommended. Chloride [Moles/Vol] 106 mmol/L 98-107 [facility] Work Phone: Eosinophils/100 WBC (Bld) 1.1 % 0-5 [facility] Work Phone: Glucose [Mass/Vol] 80 mg/dL 74-[address] [facility] Work Phone: Neutrophils (Bld) [#/Vol] 5.9 10*3/uL 2.0-7.7 [facility] Work Phone: Neutrophils/100 WBC (Bld) 72.7 % 47-70 [facility] Work Phone: Potassium [Moles/Vol] 4.0 mmol/L 3.5-5.1 [facility] Work Phone: Protein [Mass/Vol] 6.9 g/dL 6.4-8.2 [facility] Work Phone: Sodium [Moles/Vol] 137 mmol/L 136-145 [facility] Work Phone: WBC (Bld) [#/Vol] 8.2 10*3/uL 4.4-11.0 [facility] Work Phone: Basophil percentage 0 SEEN /hpf 0-5 [facility] Work Phone: Bilirubin Test strip Ql (U)o n 02-10-2022 Bilirubin Ql (U) Negative Negative [facility] Work Phone: Blood erythrocytes count (nu mber/volume)on 02-10-2022 RBC (Bld) [#/Vol] 3.76 10*6/uL 4.2-5.4 [facility] Work Phone: [phone] Blood hemoglobin measurement (mass/volume)on 02-10-2022 Hemoglobin (Bld) [Mass/Vol] 11.4 g/dL 12.0-15.0 [facility] Work Phone: Blood lymphocytes/100 leukoc yteson 02-10-2022 Lymphocytes/100 WBC (Bld) 18.8 % 19-41 [facility] Work Phone: Blood monocytes/100 leukocyt eson 02-10-2022 Monocytes/100 WBC (Bld) 6.6 % 0-10 [facility] Work Phone: Blood platelet mean volumeon 02-10-2022 Platelet mean volume (Bld) [Entitic vol] 8.6 fL 6.2-12.0 [facility] Work Phone: [phone] Determination of erythrocyte mean corpuscular volume (MCV)on 02-10-2022 MCV (RBC) [Entitic vol] 96.3 fL 81-99 [facility] Work Phone: [phone] Hematocrit Auto (Bld) [Volum e fraction]on 02-10-2022 Hematocrit (Bld) [Volume fraction] 36.2 % 37-47 [facility] Work Phone: [phone] Ketones Test strip Ql (U)on 02-10-2022 Ketones Ql (U) Negative Negative [facility] Work Phone: [phone] Laboratory - Chemistry and C hemistry - challengeon 02-10-2022 ALP [Catalytic activity/Vol] 57 U/L 45-117 [facility] Work Phone: [phone] ALT [Catalytic activity/Vol] 20 U/L 13-56 [facility] Work Phone: [phone] CO2 [Moles/Vol] 29.0 mmol/L 21.0-32.0 [facility] Work Phone: [phone] Globulin (S) [Mass/Vol] 3.9 g/dL 2.2-4.2 [facility] Work Phone: [phone] Lipase [Catalytic activity/Vol] 65 U/L 73-393 [facility] Work Phone: [phone] Urea nitrogen/Creatinine [Mass ratio] 21.5 mg/mg 10-20 [facility] Work Phone: [phone] Laboratory - Hematology and Cell countson 02-10-2022 Erythrocyte distribution width (RBC) [Entitic vol] 45.5 fL 35.1-43.9 [facility] Work Phone: [phone] Erythrocyte distribution width (RBC) [Ratio] 13.1 % 11.6-14.6 [facility] Work Phone: [phone] Immature granulocytes/100 WBC (Bld) 0.600 % 0.0-0.9 [facility] Work Phone: [phone] Comment on above: IG% - Immature Granu locytes (promyelocytes, myelocytes and metamyelocytes) > 1% indicates that a LEFT SHIFT is Present. MCH (RBC) [Entitic mass] 30.3 pg 27.0-32.0 [facility] Work Phone: Nucleated RBC/100 WBC (Bld) [Ratio] 0 % 0-5 [facility] Work Phone: MCHC Auto (RBC) [Mass/Vol]on 02-10-2022 MCHC (RBC) [Mass/Vol] 31.5 g/dL 32-36 [facility] Work Phone: Mucus LM Ql (Urine sed)on Mucus Ql (Urine sed) 0 SEEN /hpf [facility] Work Phone: Nitrite Test strip Ql (U)on 02-10-2022 Nitrite Ql (U) Negative Negative [facility] Work Phone: No Panel Informationon 02-10 Estimated Creatinine Clearance Calc 166.90 ml/min [facility] Work Phone: Estimated GFR (MDRD) Amer 159 mL/min >60 [facility] Work Phone: Comment on above: GFR Calc Estimated GFR (MDRD) Non-Af Amer 131 mL/min >60 [facility] Work Phone: Comment on above: Non- GFR Calc Platelets bldon 02-10-2022 Platelets (Bld) [#/Vol] 319 10*3/uL 150-450 [facility] Work Phone: Protein Test strip Ql (U)on 02-10-2022 Protein Ql (U) Negative Negative [facility] Work Phone: [phone] Serum or plasma albumin phillip urement (mass/volume)on 02-10-2022 Albumin [Mass/Vol] 3.0 g/dL 3.2-5.[address] [facility] Work Phone: [phone] Serum or plasma albumin/glob ulin mass ratioon 02-10-2022 Albumin/Globulin [Mass ratio] 0.8 {ratio} 0.9-2.4 [facility] Work Phone: [phone] Serum or plasma calcium phillip urement (mass/volume)on 02-10-2022 Calcium [Mass/Vol] 8.9 mg/dL 8.5-10.[address] [facility] Work Phone: Serum or plasma creatinine m easurement (mass/volume)on 02-10-2022 Creatinine [Mass/Vol] 0.56 mg/dL 0.55-1.02 [facility] Work Phone: Comment on above: The validity of the calculated GFR & GFRAA in patients over 70 years has not been determined. Clinical correlation is essential. Serum or plasma urea nitroge n measurement (mass/volume)on 02-10-2022 Urea nitrogen [Mass/Vol] 12 mg/dL 7-18 [facility] Work Phone: Squamous epithelial cells de tection in urine sediment by light microscopyon 02-10-2022 Epithelial cells.squamous LM Ql (Urine sed) 0 SEEN /hpf 5-10 [facility] Work Phone: Thin prep Papanicolaou smear with manual screeningon 02-10-2022 Thin prep Papanicolaou smear with manual screening 11 U/L 15-37 [facility] Work Phone: Thin prep Papanicolaou smear with manual screening 2 5-15 [facility] Work Phone: Urine blood detectionon 01-21 RBC Ql (U) Negative Negative [facility] Work Phone: RBC Ql (U) 0 SEEN /hpf 0-5 [facility] Work Phone: Urine clarityon 02-10-2022 Clarity (U) Clear Clear [facility] Work Phone: Urine color determinationon 02-10-2022 Color (U) Yellow Yellow [facility] Work Phone: Urine glucose detectionon Glucose Ql (U) Normal mg/dl Normal [facility] Work Phone: Urine leukocyte esterase det ection by dipstickon 02-10-2022 Leukocyte esterase Test strip Ql (U) Negative Negative [facility] Work Phone: Urine pHon 02-10-2022 pH (U) 7.0 [pH] 5.0 - 8.0 [facility] Work Phone: Urine sediment bacteria coun t by microscopy (number/high power field)on 02-10-2022 Bacteria LM.HPF (Urine sed) [#/Area] 0 /[HPF] None Seen [facility] Work Phone: Urine specific gravity measu rementon 02-10-2022 Specific gravity (U) [Rel density] 1.010 1.002-1.030 [facility] Work Phone: Urobilinogen Auto test strip Ql (U)on 02-10-2022 Urobilinogen Ql (U) Normal mg/dl Normal [facility] Work Phone: Absolute lymphocyte counton 01-30-2022 Lymphocytes Auto (Unsp spec) [#/Vol] 1.84 10*3/uL 0.83-4.51 [facility] Work Phone: Basophil percentageon 2021 Basophils/100 WBC (Bld) 0.1 % 0-1 [facility] Work Phone: Eosinophils/100 WBC (Bld) 1.3 % 0-5 [facility] Work Phone: Neutrophils (Bld) [#/Vol] 5.5 10*3/uL 2.0-7.7 [facility] Work Phone: Neutrophils/100 WBC (Bld) 68.7 % 47-70 [facility] Work Phone: WBC (Bld) [#/Vol] 7.9 10*3/uL 4.4-11.0 [facility] Work Phone: Blood erythrocytes count (nu mber/volume)on 01-30-2022 RBC (Bld) [#/Vol] 3.96 10*6/uL 4.2-5.4 [facility] Work Phone: Blood hemoglobin measurement (mass/volume)on 01-30-2022 Hemoglobin (Bld) [Mass/Vol] 12.1 g/dL 12.0-15.0 [facility] Work Phone: Blood lymphocytes/100 leukoc yteson 01-30-2022 Lymphocytes/100 WBC (Bld) 23.2 % 19-41 [facility] Work Phone: [phone] Blood monocytes/100 leukocyt eson 01-30-2022 Monocytes/100 WBC (Bld) 6.4 % 0-10 [facility] Work Phone: [phone] Blood platelet mean volumeon 01-30-2022 Platelet mean volume (Bld) [Entitic vol] 8.7 fL 6.2-12.0 [facility] Work Phone: [phone] Determination of erythrocyte mean corpuscular volume (MCV)on 01-30-2022 MCV (RBC) [Entitic vol] 94.9 fL 81-99 [facility] Work Phone: HIV 1 and HIV-2 antibody ass ay with HIV-1 p24 antigen detectionon 01-30-2022 HIV 1+2 Ab+HIV1 p24 Ag IA Ql Non-Reactive Nonreactive [facility] Work Phone: [phone] Hematocrit Auto (Bld) [Volum e fraction]on 01-30-2022 Hematocrit (Bld) [Volume fraction] 37.6 % 37-47 [facility] Work Phone: Laboratory - Hematology and Cell countson 01-30-2022 Erythrocyte distribution width (RBC) [Entitic vol] 44.3 fL 35.1-43.9 [facility] Work Phone: [phone] Erythrocyte distribution width (RBC) [Ratio] 12.8 % 11.6-14.6 [facility] Work Phone: [phone] Immature granulocytes/100 WBC (Bld) 0.300 % 0.0-0.9 [facility] Work Phone: Comment on above: IG% - Immature Granu locytes (promyelocytes, myelocytes and metamyelocytes) > 1% indicates that a LEFT SHIFT is Present. MCH (RBC) [Entitic mass] 30.6 pg 27.0-32.0 [facility] Work Phone: [phone] Nucleated RBC/100 WBC (Bld) [Ratio] 0 % 0-5 [facility] Work Phone: [phone] MCHC Auto (RBC) [Mass/Vol]on 01-30-2022 MCHC (RBC) [Mass/Vol] 32.2 g/dL 32-36 [facility] Work Phone: [phone] Panel Informationon 01-30 Hepatitis B Surface Antigen Non-Reactive Nonreactive [facility] Work Phone: [phone] Hepatitis C Antibody Non-Reactive Nonreactive [facility] Work Phone: [phone] Comment on above: Non Reactive: < 0.8 Equivocal: >/= 0.8 to < 1.0 Reactive: >/= 1.0The CDC recommends that a reactive/equivocal HCV antibody result be followed up by the HCV Nucleic Acid Amplificationtest (278372) Miscellaneous Test Comment MAILED SPECIMEN [facility] Work Phone: [phone] Rubella IgG Antibody Reactive Nonreactive [facility] Work Phone: [phone] Comment on above: Antibody Results Int erpretation of Immune Status Non Reactive Presumed Non-Immune Equivocal Equivocal Reactive Presumed Immune Platelets bldon 01-30-2022 Platelets (Bld) [#/Vol] 341 10*3/uL 150-450 [facility] Work Phone: [phone] Serum Treponema species anti body detectionon 01-30-2022 Treponema sp Ab Ql (S) Non-Reactive [facility] Work Phone: [phone] Chlamydia trachomatis rRNA d etection by probe and target amplification methodon 01-04-2022 C. trachomatis rRNA OSMAN+probe Ql (Unsp spec) Negative Negative [facility] Work Phone: [phone] Laboratory - Drug toxicology on 01-04-2022 Amphetamines Ql (U) Negative <1000 ng/mL [facility] Work Phone: [phone] Benzodiazepines Ql (U) Negative < 200 ng/mL [facility] Work Phone: [phone] Cannabinoids Screen Ql (U) Negative < 50 ng/mL [facility] Work Phone: [phone] Cocaine Ql (U) Negative < 300 ng/mL [facility] Work Phone: [phone] Opiates Ql (U) Negative < 300 ng/mL [facility] Work Phone: [phone] Laboratory - Microbiology an d Antimicrobial susceptibilityon 01-04-2022 N. gonorrhoeae DNA OSMAN+probe Ql (Unsp spec) Negative Negative [facility] Work Phone: [phone] Comment on above: Performed at: =[address] [id number] Director: Andie Marrufo MD, Phone: [phone] Panel Informationon 01-04 MDMA (Ecstasy) Screen Negative < 500 ng/mL [facility] Work Phone: [phone] Urine Barbiturates Screen Negative < 200 ng/mL [facility] Work Phone: [phone] Urine Drug Screen Comment [facility] Work Phone: [phone] Comment on above: CONFIRMATORY TESTING FOR ALL POSITIVE URINE DRUG SCREENRESULTS WILL ONLY BE SENT OUT UPON PHYSICIAN ORDER. VISTA Urine Drug Screen methods provide only preliminaryanalytical test results. A more specific alternate chemicalmethod must be used in order to obtain a confirmedanalytical result. Gas chromatography/mass spectrometery(GC/MS) is the preferred confirmatory method. Clinicalconsideration and professional judgement should be appliedto any drug of abuse test result, particularly whenpreliminary positive results are used. URINE TCA TESTING MUST BE ORDERED SEPARATELY. USE TESTMNEMONIC: [facility] Urine Methadone Screen Negative < 300 ng/mL [facility] Work Phone: [phone] Urine phencyclidine (PCP) de tectionon 01-04-2022 Phencyclidine Ql (U) Negative < 25 ng/mL [facility] Work Phone: [phone] Serum or plasma choriogonado tropin detectionon 12-08-2021 HCG ( test) Ql 1836 mIU/mL <4 [facility] Work Phone: [phone] Comment on above: hCG levels with Gest ational AgeGestational Age hCG mIU/mL (IU/L)0.2 - 1 week 5 - 501-2 weeks 50 - 5002-3 weeks 100 - 26422-7 weeks 500 - 000459-8 weeks 1000 - 416034-3 weeks 96205 - 100,0006-8 weeks 84485 - 200,0002-3 months 61732 - 100,000 Serum or plasma choriogonado tropin detectionon 12-06-2021 HCG ( test) Ql 700 mIU/mL <4 [facility] Work Phone: Comment on above: hCG levels with Gest ational AgeGestational Age hCG mIU/mL (IU/L)0.2 - 1 week 5 - 501-2 weeks 50 - 5002-3 weeks 100 - 62276-4 weeks 500 - 019406-0 weeks 1000 - 917004-3 weeks 87266 - 100,0006-8 weeks 43903 - 200,0002-3 months 58750 - 100,000 Laboratory - Chemistry and C hemistry - challengeon 09-19-2021 HCG ( test) Ql (U) Negative [facility] Work Phone: Comment on above: Very dilute urine sp ecimens, as indicated by a low specificgravity, may not contain motor vehicle field representative levels of hCG. If is still suspected, a first morning urinespecimen should be collected 48 hours later and tested. .Auto Diffon 12-31-2018 Ammonia (P) [Mass/Vol] 0.70 10 3/mcL Normal 0.15-1.00 [facility] ([place]) Comment on above: Performed By: #### C BC, ADIFF, ANEU, HIVRP, ABOG, ANSG #### [address] [address] #### RUBIS, RPR, HBSAG, VARIS #### [facility] [address] [place] [address] Basophils (Bld) [#/Vol] 0.00 10 3/mcL Normal 0.00-0.19 [facility] ([place]) Comment on above: Performed By: #### C BC, ADIFF, ANEU, HIVRP, ABOG, ANSG #### [address] [place], [place] [address] #### RUBIS, RPR, HBSAG, VARIS #### [address] [address] Basophils/100 WBC (Bld) 0.3 % Normal 0.0-2.5 [facility] ([place]) Comment on above: Performed By: #### C BC, ADIFF, ANEU, HIVRP, ABOG, ANSG #### [place] [address] #### RUBIS, RPR, HBSAG, VARIS #### [address] [address] Eosinophils (Bld) [#/Vol] 0.00 10 3/mcL Normal 0.00-0.40 [facility] ([place]) Comment on above: Performed By: #### C BC, ADIFF, ANEU, HIVRP, ABOG, ANSG #### [place] [address] #### RUBIS, RPR, HBSAG, VARIS #### [address] [address] Eosinophils/100 WBC (Bld) 0.4 % Normal 0.0-7.0 [facility] ([place]) Comment on above: Performed By: #### C BC, ADIFF, ANEU, HIVRP, ABOG, ANSG #### [place] [address] #### RUBIS, RPR, HBSAG, VARIS #### [address] [address] Lymphocytes (Bld) [#/Vol] 1.70 10 3/mcL Normal 0.77-3.85 [facility] ([place]) Comment on above: Performed By: #### C BC, ADIFF, ANEU, HIVRP, ABOG, ANSG #### [place] [address] #### RUBIS, RPR, HBSAG, VARIS #### [address] [address] Lymphocytes/100 WBC (Bld) 15.2 % Normal 10.0-50.0 [facility] ([place]) Comment on above: Performed By: #### C BC, ADIFF, ANEU, HIVRP, ABOG, ANSG #### [place] [address] #### RUBIS, RPR, HBSAG, VARIS #### [address] [address] Monocytes/100 WBC (Bld) 6.2 % Normal 1.7-13.0 [facility] ([place]) Comment on above: Performed By: #### C BC, ADIFF, ANEU, HIVRP, ABOG, ANSG #### [place] [address] #### RUBIS, RPR, HBSAG, VARIS #### [address] [address] Neutrophils/100 WBC (Bld) 77.9 % Normal 37.0-80.0 [facility] ([place]) Comment on above: Performed By: #### C BC, ADIFF, ANEU, HIVRP, ABOG, ANSG #### [place] [address] #### RUBIS, RPR, HBSAG, VARIS #### [address] [address] .NEUABSon 12-31-2018 Neutrophils (Bld) [#/Vol] 8.50 10 3/mcL High 2.85-6.16 [facility] ([place]) Comment on above: Performed By: #### C BC, ADIFF, ANEU, HIVRP, ABOG, ANSG #### [place] [address] #### RUBIS, RPR, HBSAG, VARIS #### [address] [address] AMNIon 12-31-2018 Amnisure Positive Normal Negative [facility] ([place]) Comment on above: Performed By: #### C BC, ADIFF, ANEU, HIVRP, ABOG, ANSG #### [place] [address] #### RUBIS, RPR, HBSAG, VARIS #### [address] [address] CBCon 12-31-2018 Erythrocyte distribution width (RBC) [Ratio] 14.2 % Normal 11.5-14.5 [facility] ([place]) Comment on above: Performed By: #### C BC, ADIFF, ANEU, HIVRP, ABOG, ANSG #### [place] [address] #### RUBIS, RPR, HBSAG, VARIS #### [place] [address] Hematocrit (Bld) [Volume fraction] 30.6 % Low 37.0-47.0 [facility] ([place]) Comment on above: Performed By: #### C BC, ADIFF, ANEU, HIVRP, ABOG, ANSG #### [place] [address] #### RUBIS, RPR, HBSAG, VARIS #### [place] [address] Hemoglobin (Bld) [Mass/Vol] 10.2 G/dL Low 12.0-16.0 [facility] ([place]) Comment on above: Performed By: #### C BC, ADIFF, ANEU, HIVRP, ABOG, ANSG #### [place] [address] #### RUBIS, RPR, HBSAG, VARIS #### [place] [address] MCH (RBC) [Entitic mass] 29.5 pg Normal 27.0-31.2 [facility] ([place]) Comment on above: Performed By: #### C BC, ADIFF, ANEU, HIVRP, ABOG, ANSG #### [place] [address] #### RUBIS, RPR, HBSAG, VARIS #### [place] [address] MCHC (RBC) [Mass/Vol] 33.2 G/dL Normal 33.0-37.0 [facility] ([place]) Comment on above: Performed By: #### C BC, ADIFF, ANEU, HIVRP, ABOG, ANSG #### [address] [address] #### RUBIS, RPR, HBSAG, VARIS #### [address] [address] MCV (RBC) [Entitic vol] 88.8 fL Normal 80.0-94.0 [facility] ([place]) Comment on above: Performed By: #### C BC, ADIFF, ANEU, HIVRP, ABOG, ANSG #### [place] [address] #### RUBIS, RPR, HBSAG, VARIS #### [address] [address] Platelet mean volume (Bld) [Entitic vol] 7.7 fL Normal 7.4-10.4 [facility] ([place]) Comment on above: Performed By: #### C BC, ADIFF, ANEU, HIVRP, ABOG, ANSG #### [place] [address] #### RUBIS, RPR, HBSAG, VARIS #### [address] [address] Platelets (Bld) [#/Vol] 276 10 3/mcL Normal 130-400 [facility] ([place]) Comment on above: Performed By: #### C BC, ADIFF, ANEU, HIVRP, ABOG, ANSG #### [place] [address] #### RUBIS, RPR, HBSAG, VARIS #### [address] [address] RBC (Bld) [#/Vol] 3.45 10 6/mcL Low 4.20-5.40 [facility] ([place]) Comment on above: Performed By: #### C BC, ADIFF, ANEU, HIVRP, ABOG, ANSG #### [place] [address] #### RUBIS, RPR, HBSAG, VARIS #### [place] [address] WBC (Bld) [#/Vol] 10.90 10 3/mcL High 4.60-10.80 [facility] ([place]) Comment on above: Performed By: #### C BC, ADIFF, ANEU, HIVRP, ABOG, ANSG #### [place] [address] #### RUBIS, RPR, HBSAG, VARIS #### [place] [address] Gel ABOon 12-31-2018 ABO/Rh Interp Positive [facility] ([place]) Comment on above: Performed By: #### C BC, ADIFF, ANEU, HIVRP, ABOG, ANSG #### [place] [address] #### RUBIS, RPR, HBSAG, VARIS #### [place] [address] Gel ABSon 12-31-2018 Antibody Screen Gel Negative Normal [facility] ([place]) Comment on above: Performed By: #### C BC, ADIFF, ANEU, HIVRP, ABOG, ANSG #### [place] [address] #### RUBIS, RPR, HBSAG, VARIS #### [place] [address] [id number] 10-16-2018 Glucose [Mass/Vol] 103 mg/dL Normal 70-140 [facility] ([place]) Comment on above: Performed By: #### C BC, ADIFF, ANEU, HIVRP, ABOG, ANSG #### [place] [address] #### RUBIS, RPR, HBSAG, VARIS #### [place] [address] HGMPon 10-16-2018 Erythrocyte distribution width (RBC) [Ratio] 15.3 % High 11.5-14.5 [facility] ([place]) Comment on above: Performed By: #### C BC, ADIFF, ANEU, HIVRP, ABOG, ANSG #### [place] [address] #### RUBIS, RPR, HBSAG, VARIS #### [address] [address] Hematocrit (Bld) [Volume fraction] 32.1 % Low 37.0-47.0 [facility] ([place]) Comment on above: Performed By: #### C BC, ADIFF, ANEU, HIVRP, ABOG, ANSG #### [place] [address] #### RUBIS, RPR, HBSAG, VARIS #### [address] [address] Hemoglobin (Bld) [Mass/Vol] 10.5 G/dL Low 12.0-16.0 [facility] ([place]) Comment on above: Performed By: #### C BC, ADIFF, ANEU, HIVRP, ABOG, ANSG #### [place] [address] #### RUBIS, RPR, HBSAG, VARIS #### [address] [address] MCH (RBC) [Entitic mass] 31.4 pg High 27.0-31.2 [facility] ([place]) Comment on above: Performed By: #### C BC, ADIFF, ANEU, HIVRP, ABOG, ANSG #### [place] [address] #### RUBIS, RPR, HBSAG, VARIS #### [address] [address] MCHC (RBC) [Mass/Vol] 32.7 G/dL Low 33.0-37.0 [facility] ([place]) Comment on above: Performed By: #### C BC, ADIFF, ANEU, HIVRP, ABOG, ANSG #### [place] [address] #### RUBIS, RPR, HBSAG, VARIS #### [address] [address] MCV (RBC) [Entitic vol] 96.0 fL High 80.0-94.0 [facility] ([place]) Comment on above: Performed By: #### C BC, ADIFF, ANEU, HIVRP, ABOG, ANSG #### [place] [address] #### RUBIS, RPR, HBSAG, VARIS #### [address] [address] Platelet mean volume (Bld) [Entitic vol] 7.1 fL Low 7.4-10.4 [facility] ([place]) Comment on above: Performed By: #### C BC, ADIFF, ANEU, HIVRP, ABOG, ANSG #### [place] [address] #### RUBIS, RPR, HBSAG, VARIS #### [address] [address] Platelets (Bld) [#/Vol] 301 10 3/mcL Normal 130-400 [facility] ([place]) Comment on above: Performed By: #### C BC, ADIFF, ANEU, HIVRP, ABOG, ANSG #### [place] [address] #### RUBIS, RPR, HBSAG, VARIS #### [address] [address] RBC (Bld) [#/Vol] 3.35 10 6/mcL Low 4.20-5.40 [facility] ([place]) Comment on above: Performed By: #### C BC, ADIFF, ANEU, HIVRP, ABOG, ANSG #### [place] [address] #### RUBIS, RPR, HBSAG, VARIS #### [address] [address] WBC (Bld) [#/Vol] 9.20 10 3/mcL Normal 4.60-10.80 [facility] ([place]) Comment on above: Performed By: #### C BC, ADIFF, ANEU, HIVRP, ABOG, ANSG #### [place] [address] #### RUBIS, RPR, HBSAG, VARIS #### [place] [address] VARISon 07-30-[address] Positive Normal [facility] ([place]) Comment on above: Result Comment: This immune status assay detects antibody to Varicella Zoster virus. Interpret results in conjunction with clinical history. Positive: Reactive for antibodies to Varicella IgG. If clinically indicated, order Varicella IGM to rule out recent infection. Equivocal: Equivocal for antibodies to Varicella IgG. Suggest repeat testing in 10-14 days. Negative: Non-reactive for antibodies to Varicella IgG. Sera will be held 4-6 weeks if further testing is required. Performed By: #### C BC, ADIFF, ANEU, HIVRP, ABOG, ANSG #### [place] [address] #### RUBIS, RPR, HBSAG, VARIS #### [place] [address] HBSAGon 07-29-2018 Hep B Surf Ag Negative Normal Negative [facility] ([place]) Comment on above: Performed By: #### C BC, ADIFF, ANEU, HIVRP, ABOG, ANSG #### [place] [address] #### RUBIS, RPR, HBSAG, VARIS #### [place] [address] RPRon 07-27-2018 Reagin Ab RPR Ql (S) Non-Reactive Normal Non-Reactive [facility] ([place]) Comment on above: Result Comment: The RPR test is a non-treponemal assay useful as an aid in the diagnosis of primary and secondary syphilis. It converts to positive generally within 2 weeks after the appearance of a lesion. This test is also useful for monitoring response to antibiotic therapy. A positive RPR screening test will be followed by the FTA ABS test. False positive RPR tests may occur in 1) patients with underlying autoimmune disorders, 2) elderly patients, 3) , and 4) other conditions with abnormal serum globulins. Performed By: #### C BC, ADIFF, ANEU, HIVRP, ABOG, ANSG #### [place] [address] #### RUBIS, RPR, HBSAG, VARIS #### [place] [address] RUBISon 07-27-[address] Positive Normal Positive [facility] ([place]) Comment on above: Result Comment: This immune status assay detects IgM and/or IgG antibody to Rubella. Interpret results in conjunction with clinical history. POS: Antibody detected; exposure at undetermined recent or distant time. If clinically indicated, order Rubella IGM to rule out recent infection. NEG: No antibody detected. Performed By: #### C BC, ADIFF, ANEU, HIVRP, ABOG, ANSG #### [place] [address] #### RUBIS, RPR, HBSAG, VARIS #### [place] [address] Gel ABOon 07-26-2018 ABO/Rh Interp Positive [facility] ([place]) Comment on above: Performed By: #### C BC, ADIFF, ANEU, HIVRP, ABOG, ANSG #### [place] [address] #### RUBIS, RPR, HBSAG, VARIS #### [place] [address] Gel ABSon 07-26-2018 Antibody Screen Gel Negative Normal [facility] ([place]) Comment on above: Performed By: #### C BC, ADIFF, ANEU, HIVRP, ABOG, ANSG #### [place] [address] #### RUBIS, RPR, HBSAG, VARIS #### [place] [address] .Auto Diffon 07-25-2018 Ammonia (P) [Mass/Vol] 0.50 10 3/mcL Normal 0.15-1.00 [facility] ([place]) Comment on above: Performed By: #### C BC, ADIFF, ANEU, HIVRP, ABOG, ANSG #### [address] [address] #### RUBIS, RPR, HBSAG, VARIS #### [address] [address] Basophils (Bld) [#/Vol] 0.00 10 3/mcL Normal 0.00-0.19 [facility] ([place]) Comment on above: Performed By: #### C BC, ADIFF, ANEU, HIVRP, ABOG, ANSG #### [place] [address] #### RUBIS, RPR, HBSAG, VARIS #### [address] [address] Basophils/100 WBC (Bld) 0.2 % Normal 0.0-2.5 [facility] ([place]) Comment on above: Performed By: #### C BC, ADIFF, ANEU, HIVRP, ABOG, ANSG #### [place] [address] #### RUBIS, RPR, HBSAG, VARIS #### [address] [address] Eosinophils (Bld) [#/Vol] 0.10 10 3/mcL Normal 0.00-0.40 [facility] ([place]) Comment on above: Performed By: #### C BC, ADIFF, ANEU, HIVRP, ABOG, ANSG #### [place] [address] #### RUBIS, RPR, HBSAG, VARIS #### [address] [address] Eosinophils/100 WBC (Bld) 1.5 % Normal 0.0-7.0 [facility] ([place]) Comment on above: Performed By: #### C BC, ADIFF, ANEU, HIVRP, ABOG, ANSG #### [place] [address] #### RUBIS, RPR, HBSAG, VARIS #### [address] [address] Lymphocytes (Bld) [#/Vol] 2.00 10 3/mcL Normal 0.77-3.85 [facility] ([place]) Comment on above: Performed By: #### C BC, ADIFF, ANEU, HIVRP, ABOG, ANSG #### [place] [address] #### RUBIS, RPR, HBSAG, VARIS #### [address] [address] Lymphocytes/100 WBC (Bld) 22.4 % Normal 10.0-50.0 [facility] ([place]) Comment on above: Performed By: #### C BC, ADIFF, ANEU, HIVRP, ABOG, ANSG #### [place] [address] #### RUBIS, RPR, HBSAG, VARIS #### [address] [address] Monocytes/100 WBC (Bld) 5.3 % Normal 1.7-13.0 [facility] ([place]) Comment on above: Performed By: #### C BC, ADIFF, ANEU, HIVRP, ABOG, ANSG #### [place] [address] #### RUBIS, RPR, HBSAG, VARIS #### [address] [address] Neutrophils/100 WBC (Bld) 70.6 % Normal 37.0-80.0 [facility] ([place]) Comment on above: Performed By: #### C BC, ADIFF, ANEU, HIVRP, ABOG, ANSG #### [place] [address] #### RUBIS, RPR, HBSAG, VARIS #### [address] [address] .NEUABSon 07-25-2018 Neutrophils (Bld) [#/Vol] 6.40 10 3/mcL High 2.85-6.16 [facility] ([place]) Comment on above: Performed By: #### C BC, ADIFF, ANEU, HIVRP, ABOG, ANSG #### [place] [address] #### RUBIS, RPR, HBSAG, VARIS #### [address] [address] CBCon 07-25-2018 Erythrocyte distribution width (RBC) [Ratio] 13.3 % Normal 11.5-14.5 [facility] ([place]) Comment on above: Performed By: #### C BC, ADIFF, ANEU, HIVRP, ABOG, ANSG #### [place] [address] #### RUBIS, RPR, HBSAG, VARIS #### [address] [address] Hematocrit (Bld) [Volume fraction] 35.0 % Low 37.0-47.0 [facility] ([place]) Comment on above: Performed By: #### C BC, ADIFF, ANEU, HIVRP, ABOG, ANSG #### [place] [address] #### RUBIS, RPR, HBSAG, VARIS #### [address] [address] Hemoglobin (Bld) [Mass/Vol] 11.7 G/dL Low 12.0-16.0 [facility] ([place]) Comment on above: Performed By: #### C BC, ADIFF, ANEU, HIVRP, ABOG, ANSG #### [place] [address] #### RUBIS, RPR, HBSAG, VARIS #### [address] [address] MCH (RBC) [Entitic mass] 32.5 pg High 27.0-31.2 [facility] ([place]) Comment on above: Performed By: #### C BC, ADIFF, ANEU, HIVRP, ABOG, ANSG #### [place] [address] #### RUBIS, RPR, HBSAG, VARIS #### [address] [address] MCHC (RBC) [Mass/Vol] 33.4 G/dL Normal 33.0-37.0 [facility] ([place]) Comment on above: Performed By: #### C BC, ADIFF, ANEU, HIVRP, ABOG, ANSG #### [place] [address] #### RUBIS, RPR, HBSAG, VARIS #### [place] [phone] MCV (RBC) [Entitic vol] 97.1 fL High 80.0-94.0 [facility] ([place]) Comment on above: Performed By: #### C BC, ADIFF, ANEU, HIVRP, ABOG, ANSG #### [place] [address] #### RUBIS, RPR, HBSAG, VARIS #### [place] [address] Platelet mean volume (Bld) [Entitic vol] 7.1 fL Low 7.4-10.4 [facility] ([place]) Comment on above: Performed By: #### C BC, ADIFF, ANEU, HIVRP, ABOG, ANSG #### [place] [address] #### RUBIS, RPR, HBSAG, VARIS #### [place] [phone] Platelets (Bld) [#/Vol] 324 10 3/mcL Normal 130-400 [facility] ([place]) Comment on above: Performed By: #### C BC, ADIFF, ANEU, HIVRP, ABOG, ANSG #### [place] [address] #### RUBIS, RPR, HBSAG, VARIS #### [place] [phone] RBC (Bld) [#/Vol] 3.61 10 6/mcL Low 4.20-5.40 [facility] ([place]) Comment on above: Performed By: #### C BC, ADIFF, ANEU, HIVRP, ABOG, ANSG #### [place] [address] #### RUBIS, RPR, HBSAG, VARIS #### [place] [address] WBC (Bld) [#/Vol] 9.00 10 3/mcL Normal 4.60-10.80 [facility] ([place]) Comment on above: Performed By: #### C BC, ADIFF, ANEU, HIVRP, ABOG, ANSG #### [place] [address] #### RUBIS, RPR, HBSAG, VARIS #### [place] [address] HIVRPon 07-25-2018 HIV p24 Antigen Non-Reactive Normal Non-Reactive [facility] ([place]) Comment on above: Performed By: #### C BC, ADIFF, ANEU, HIVRP, ABOG, ANSG #### [place] [address] #### RUBIS, RPR, HBSAG, VARIS #### [place] [address] HIV P24 Int Non-reactive [facility] ([place]) Comment on above: Performed By: #### C BC, ADIFF, ANEU, HIVRP, ABOG, ANSG #### [place] [address] #### RUBIS, RPR, HBSAG, VARIS #### [place] [address] Rapid HIV 1/2 Antibody Non-Reactive Normal Non-Reactive [facility] ([place]) Comment on above: Performed By: #### C BC, ADIFF, ANEU, HIVRP, ABOG, ANSG #### [place] [address] #### RUBIS, RPR, HBSAG, VARIS #### [facility] [address] [place] [address] RHIV 1/2 Ab Int Non-Reactive [facility] ([place]) Comment on above: Performed By: #### C BC, ADIFF, ANEU, HIVRP, ABOG, ANSG #### [address] [address] #### RUBIS, RPR, HBSAG, VARIS #### [facility] [address] [place] [address] CNCOon 07-02-2018 CNCO Letter Text Comfort Payne CNM [facility] [address] [place] [phone] Melanie BATISTA [address] [place] [address] 07/02/2018 [facility] #: [id number] To Whom it May Concern: This is to confirm that Melanie BATISTA is and is a patient under my care for the . Her estimated date of delivery is Estimated Date of Delivery: None noted.. We encourage ongoing preventative dental care and treatment of dental problems during . She may undergo routine dental care and treatment with the following considerations: Generally Permitted: Any local anesthetic (without Epinephrine) Pain medications such as Tylenol with codeine, Vicodin, Fioricet Antibiotics of the Penicillin or Cephalosporin family, such as Amoxicillin, Keflex, and Erythromycin. Dental x-rays with shielded abdomen. Generally not advised: General anesthesia Antibiotics in the Flouroquinolone or Doxycycline family. No Tetracycline. Benzodiazepines and Barbiturates Please contact me if any further information is needed. Sincerely, Comfort Payne CNM Letter Text Comfort Payne CNM [facility] [address] [place], [place] [phone] Melanie BATISTA [address] [facility] [address] 07/02/2018 [facility] #: [id number] To Whom it May Concern: This is to confirm that Melanie BATISTA is and is a patient under my care for the . Her estimated date of delivery is Estimated Date of Delivery: None noted.. We encourage ongoing preventative dental care and treatment of dental problems during . She may undergo routine dental care and treatment with the following considerations: Generally Permitted: Any local anesthetic (without Epinephrine) Pain medications such as Tylenol with codeine, Vicodin, Fioricet Antibiotics of the Penicillin or Cephalosporin family, such as Amoxicillin, Keflex, and Erythromycin. Dental x-rays with shielded abdomen. Generally not advised: General anesthesia Antibiotics in the Flouroquinolone or Doxycycline family. No Tetracycline. Benzodiazepines and Barbiturates Please contact me if any further information is needed. Sincerely, Comfort Payne CNM Normal [facility] PROGRESSon 06-12-2018 PROGRESS HNO ID: [id number] Author: Elke Garrett Psr Service: (none) Author Type: (none) Type: Progress Notes Filed: 06/12/2018 7:59 AM Note Text: Pap logged and normal pap letter mailed to patient. Elke Garrett Psr Normal [facility] PROGRESSon 06-10-2018 PROGRESS HNO ID: [id number] Author: Carlo Wolf Service: (none) Author Type: Physician Type: Progress Notes Filed: 06/10/2018 9:27 AM Note Text: A single intrauterine gestational sac is noted with a regular outline. No decidual hemorrhage is noted. The yolk sac appears normal. An embryo is visualized with a heart rate within normal range Estimated Date of Delivery: 01/19/19 EGA = 8 1/7 weeks The CRL corresponds to the gestational age. RECOMMENDATIONS - Ultrasound examination at 11 to 13 weeks to mesure the nuchal translucency (NT) if first trimester screening is desired . Normal [facility] HCG, Quantitative Blon 06-03 [place], [place] [address].0 mU/mL High <5.0 [facility] Comment on above: Result Comment: ADELAIDA TITATIVE HCG NORMAL RANGES Weeks of Gestation (Weeks Since LMP) 3 Weeks (5.8-71.2 mIU/mL) 4 Weeks (9.5-750 mIU/mL) 5 Weeks (217-7138 mIU/mL) 6 Weeks (158-26769 mIU/mL) 7 Weeks (3697-164783 mIU/mL) 8 Weeks (36803-987989 mIU/mL) 9 Weeks ([address]106-196212 mIU/mL) 10 Weeks (33196-854679 mIU/mL) 12 Weeks (88720-434435 mIU/mL) Referenced to [facility] Performed By: #### H CGQT #### [facility] [address] [place], [place] [address] CYTOLOGYon 05-31-2018 CYTOLOGY ADDITIONAL PROCEDURES PRESENT Specimen originated from [facility] Specimen #: [id number] Submitting Physician: COMFORT PAYNE CNM SPECIMEN SUBMITTED A: CERVICAL, SCREENING, FLUID FINAL DIAGNOSIS A. CERVICAL, SCREENING, FLUID Satisfactory for interpretation. Negative for intraepithelial lesion or malignancy. Acute inflammation. COMMENT Technical component, image editor screening performed at [facility], [address] [place] [address] This specimen has been analyzed by the ThinPrep Imaging System, an automated imaging and review system, which assists the laboratory in evaluating cells on ThinPrep Pap tests. Following automated imaging, selected manzo from every slide are reviewed by a image editor. YARELY Alicia(ASCP) (Electronic Signature) ADDITIONAL PROCEDURE(S) HUMAN PAPILLOMA VIRUS Date Ordered: 06/03/2018 Date Reported: 06/04/2018 Procedure Results and Interpretation Negative for HPV DNA high risk type 16 by PCR. Negative for HPV DNA high risk type 18 by PCR. Negative for HPV DNA high risk types: 31,33,35,39,45,51,52,56 ,58,59,66,68 by PCR. This test was developed and its performance characteristics determined by [facility] [place] ([facility] It has not been cleared or approved by the FDA. -[facility] is regulated under CLIA as qualified to perform high-complexity testing. This test is used for clinical purposes. It should not be regarded as investigational or for research. CLINICAL DATA ROUTINE EXAM, HPV Testing: Yes, automatic HPV patients over 30 Date of Last Menstrual Period: 03/30/18 STAINS A: CERVICAL, SCREENING, FLUID THIN [employer]P MAT[employer]S ASSOCIATE Wanda Gamez M.D., [employer] Date of Report: 06/07/2018 Date of Procedure: 05/31/2018 Date of Receipt: 06/03/2018 Submitted by: COMFORT PAYNE CNM Location: [facility] Diagnostic interpretation performed at [facility], [address] [place] [address]. The Pap Smear is a screening test for cervical cancer. False negative results occur with all screening tests, emphasizing the need for rescreening at recommended intervals, and clinical correlation. Normal [facility] GC/Chlamydia Amplifon 2017 Chlamydia Amplif Negative Normal [facility] Comment on above: Performed By: #### G CCT #### [place] [address] GC Amplification Negative Normal [facility] Comment on above: Performed By: #### G CCT #### [place] [phone] GC/Chlam Amp Source Cervix Normal [facility] Comment on above: Performed By: #### G CCT #### [place] [phone] HCG, Quantitative Blon 05-31 HCG, [place] [address].0 mU/mL High <5.0 C [facility] Comment on above: Result Comment: ADELAIDA TITATIVE HCG NORMAL RANGES Weeks of Gestation (Weeks Since LMP) 3 Weeks (5.8-71.2 mIU/mL) 4 Weeks (9.5-750 mIU/mL) 5 Weeks (217-7138 mIU/mL) 6 Weeks (158-18758 mIU/mL) 7 Weeks (3697-796182 mIU/mL) 8 Weeks (74654-580655 mIU/mL) 9 Weeks (55338-967777 mIU/mL) 10 Weeks (83037-805547 mIU/mL) 12 Weeks (11037-866942 mIU/mL) Referenced to [facility] Performed By: #### H CGQT #### [place] [phone] HPV w/Genotypeon 05-31-2018 HPV HighRisk Other Negative for HPV DNA high risk types: 31,33,35,39,45,51,52,56 ,58,59,66,68 by PCR. Normal [facility] Comment on above: Result Comment: This test was developed and its performance characteristics determined by [facility] [place] ([facility]). It has not been cleared or approved by the FDA. [facility] is regulated under CLIA as qualified to perform high-complexity testing. This test is used for clinical purposes. It should not be regarded as investigational or for research. Performed By: #### H PVHRR #### [facility] [employer] [address] [place] [address] HPV HighRisk Type 16 Negative Normal [facility] Comment on above: Performed By: #### H PVHRR #### [facility] [employer] [address] [place] [address] HPV HighRisk Type 18 Negative Normal [facility] Comment on above: Performed By: #### H PVHRR #### [facility] [address] [place], [place] [address] PROGRESSon 05-31-2018 PROGRESS HNO ID: [id number] Author: Comfort Payne Service: (none) Author Type: Dock Guard Type: Progress Notes Filed: 06/04/2018 10:18 AM Note Text: INITIAL OB ASSESSMENT Obstetric History T2 L2 SAB2 TAB0 Ectopic0 Multiple0 Live Births2 HPI: Melanie BATISTA is a 32 year old female here to establish Obstetrical Care. 03/30/18, regular cycles but 28-35 from OB Dating Form. Cycle length: 5-7 days. 8w6d EGA by LMP Complaints: nausea without vomiting . was unplanned but accepted.[facility] , had thought about adoption but are planning keep the baby. had affair 2 years ago but they are working on relationship. Patient with history of depression and anxiety. unfaithful 2 years ago and this had increased her depression. Over the past 2 years patient has taken Celexa and Buspar but this did not work well. Over last year she has taken Zoloft and Wellbutrin but stopped taking in last month. She was being seen at [facility] in [facility] for treatment but wanted to stop medication. She has since stopped going to appointments and feels she is doing better now than she has in the past 2 years. Reviewed risks vs. Benefit of medication during and untreated depression/anxiety. Patient would like to continue without treatment at this time. She denies any SI/HI thoughts or thoughts of self harm. Obstetric History T1 L1 SAB1 TAB0 Ectopic0 Multiple0 Live Births1 Prior : never History of 4th degree laceration: No Patient's Risk Screening for delivery: History of abnormal pap: Yes Prior treatment for cervical dysplasia: none. History of STDs: None Tobacco use: No Caffeine use: Yes Drug use: No current use, history of drug abuse [id number] Alcohol use: No current use, Multivitamin with Folic acid: Yes Zoroastrianism or heritage: No Would refuse blood transfusion if medically necessary: No No weight on file for this encounter. Patient BMI over 30? No Marital Status: PAST MEDICAL HISTORY Diagnosis Date - Abnormal Pap smear December 30, 2009 ASCUS, Positive HPV - Asthma PAST SURGICAL HISTORY Procedure Laterality Date - APPENDECTOMY - PAST SURGICAL HISTORY OF WISDOM TEETH - VAGINOSCOPY January 21, 2010 Current Outpatient Prescriptions on File Prior to Visit: norgestimate-ethinyl estradiol(SPRINTEC (28) 0.25 MG-35 MCG TAB) Take one(1) tablet daily. (Patient not taking: No sig reported) FLUTICASONE 110 MCG/ACTUATION AEROSOL INHALER use as directed bid albuterol sulfate(PROAIR HFA 90 MCG/ACTUATION AEROSOL INHALER) No current facility-administered medications on file prior to visit. Review of Systems: GENERAL: Negative for: Fever or Chills HEENT: Negative for: Headache, Impaired Vision, Ringing in Ears, Nosebleeds NECK: Negative for: Swelling, Pain, Stiffness RESPIRATORY: Negative for: Cough, Shortness of breath, Wheezing GASTROINTESTINAL: Negative for: Heartburn, Constipation, Diarrhea, Blood in stool, Vomiting MUSCULOSKELETAL: Negative for: Muscle or joint pain, stiffness, Joint swelling NEUROLOGIC/PSYCHIATRIC: Negative for: Weakness, Paralysis, Numbness, Tingling, Tremor, Anxiety, Depression, Memory loss SKIN: Negative for: Rash, Itching GENITOURINARY: Negative for: vaginal itching, vaginal discharge, hematuria or dysuria PHYSICAL EXAM: There were no vitals taken for this visit. GENERAL: pleasant female in no apparent distress DERMATOLOGY: Normal, without lesions, non-icteric and non-hirsute NECK: Supple, full range of motion, no adenopathy and thyroid normal CHEST: Clear to auscultation Normal inspiratory effort Regular rate and rhythm No murmurs, clicks, rubs or gallops BREAST: soft, non-tender, symmetric, no dominant mass, normal nipple-areolar complex, no lymphadenopathy and no nipple discharge ABDOMEN: soft, non-tender and no masses NEURO: alert and oriented x3,exam grossly non-focal PELVIS: External genitalia normal without lesions. Perineal body intact. No vaginal or cervical lesions. Cervix closed. Uterus 6 week size. No adnexal masses or tenderness. Clinical Pelvimetry: Pelvimetry clinically assessed as adequate Limited OB ultrasound exam: Gestational sac present, no pole or yolk sac present. Normal adnexa. ASSESSMENT: 32 year old at 9w3d gestational age by LMP PLAN: 1) Patient oriented to practice. 2) Reviewed with patient gestational sac seen but no pole or yolk sac. Uncertain of viability of this . Serum hCG today and repeat in 3 days. Reviewed bleeding precautions and when to call. Emotional support provided and questions answered. Will call patient with results and discuss plan at that time. Follow up in 1 weeks or sooner prn. SBIRDayne Melanie BATISTA was given the 4P's screening tool. Melanie answered as follows: OB Opioid Screening - Last Recorded (since 09/03/2017) Did any of your parents have a problem with alcohol or other drug use? No Does your partner have a problem with alcohol or other drug use? No In the past, have you had difficulties in your life because of alcohol or other drugs, including prescription medications? (!) Yes (Patient was an alocholic x 2 years; Patient states that she did drugs in [id number]) In the past month have you drunk any alcohol or used other drugs? No Are you taking medication for pain during the either prescribed or not? No Based on the screen and further questions, she is considered at Low risk due to:No past or current use. Positive reinforcement of current behavior. Plan to rescreen early third trimester. In total, 10 minutes of personal time was spent administering and interpreting the screen, plus performing a brief intervention. History of multi drug use and alcohol use [id number]. Patient has been sober since 2009. No current counseling or treatment. Patient does not know about her past drug and alcohol abuse and does not want him to know this. She states she is doing really well at this time. Normal [facility] Type and Scr,Prenatlon 05-31 ABO/RH(D) Positive Normal [facility] Comment on above: Performed By: #### T SPN #### [facility] [address] [place], [place] [address] RAYMUNDOOVanup 05-15-2018 CNOV Office Visit ([facility] ) MELANIE BATISTA ([id number]) 1985 F Date Time Provider Department 05/15/18 10:00 AM MARILEE CEJA (DUMP MOTORMAN) [facility] During your visit today, we recorded the following information about you: Temperature Pulse Respiration Blood pressure 99.3 degrees 74/minute 16/minute 120/80 Weight Last Period 83.5 kg 03/25/18 Marilee Ceja APRN.FLOWER 05/15/2018 10:42 AM Signed Subjective HPI Melanie BATISTA is a 32 year old female who presents with dysuria and frequency for the past 4 days. She was treated for UTI with Macrobid on 05/06 and finished that medication on the . She states the burning and frequency is improved but she still notices it. She had a few positive urine tests at home. Review of Systems Constitutional: Negative. Negative for fever. Respiratory: Negative. Cardiovascular: Negative. Gastrointestinal: Negative. Negative for abdominal pain, nausea and vomiting. Genitourinary: Positive for dysuria and frequency. Negative for hematuria. Musculoskeletal: Negative for back pain. BP 120/80 Pulse 74 Temp 37.4 ?C (99.3 ?F) (Tympanic) Resp 16 Wt 83.5 kg (184 lb) LMP 03/25/2018 BMI 24.78 kg/m? PAST MEDICAL HISTORY Diagnosis Date - Abnormal Pap smear December 30, 2009 ASCUS, Positive HPV - Asthma PAST SURGICAL HISTORY Procedure Laterality Date - APPENDECTOMY - PAST SURGICAL HISTORY OF WISDOM TEETH - VAGINOSCOPY January 21, 2010 ALLERGIES Biaxin [Clarithromycin]; Latex; Penicillins; Sulfa (Sulfonamide Antibiotics) MEDICATIONS albuterol sulfate(PROAIR HFA 90 MCG/ACTUATION AEROSOL INHALER) norgestimate-ethinyl estradiol(SPRINTEC (28) 0.25 MG-35 MCG TAB) Take one(1) tablet daily. FLUTICASONE 110 MCG/ACTUATION AEROSOL INHALER use as directed bid FAMILY HISTORY Problem Relation Age of Onset - Arthritis Maternal Grandmother - Arthritis Paternal Grandmother - Asthma Paternal Grandmother - Cancer Paternal Grandfather KIDNEY CANCER - Diabetes Paternal Grandfather - Heart Paternal Grandmother - Heart Paternal Aunt - Hypertension Father - Lipids Father Social History Substance Use Topics - Smoking status: Current Every Day Smoker Years: 3.00 Types: Cigarettes Last attempt to quit: 04/18/2009 - Smokeless tobacco: Never Used Comment: 2 Cigarettes per Day - Alcohol use Yes Comment: OCCASIONALLY, BUT NOT WHILE Objective Physical Exam Constitutional: She is well-developed, well-nourished, and in no distress. Cardiovascular: Normal rate and regular rhythm. Pulmonary/Chest: Effort normal and breath sounds normal. Abdominal: Soft. She exhibits no distension and no mass. There is no hepatosplenomegaly. There is no tenderness. There is no guarding and no CVA tenderness. Neurological: She is alert. Skin: Skin is warm and dry. No rash noted. Nursing note and vitals reviewed. ASSESSMENT/PLAN: 1. Urinary frequency - ICD9: 788.41, ICD10: R35.0 (primary diagnosis) acute - Send urine for culture- urine dip negative in office today. - Patient education for prevention given - UA DIP, URINE (POC) - URINE CULTURE 2. Missed period - ICD9: 626.4, ICD10: N92.6 - HCG QUAL UR B/O- positive in office today 3. Positive test - ICD9: V72.42, ICD10: Z32.01 - CONSULT TO ELECTION WATCHER- appointment scheduled for 05/31/2018 - Follow-up with your PCP in 3-5 days if symptoms have not improved or sooner if symptoms worsen - Discussed red flags and need for immediate medical evaluation if any occur. - Discussed supportive care treatment with fluids, rest and analgesia. - Discussed expected course of illness MUNIRA Armenta APRN.CNP 05/15/2018 10:20 AM Signed Schedule with ELECTION WATCHER for care appointment. Urine culture pending- will send in prescription for antibiotic if culture is positive. Increase fluid intake- avoid sugary beverages. Referring Provider: SELF [[id number]] Allergies As of Date: 05/15/2018 Noted Allergy Reaction BIAXIN (CLARITHROMYCIN) 04/02/2009 Comments: MIGRAINES LATEX 04/02/2009 2 - Rash PENICILLINS 04/02/2009 4 - Hives SULFA (SULFONAMIDE ANTIBIOTICS) 05/15/2018 14 - Other: See Comments Comments: knowles all over Date Reviewed: 05/15/2018 Reviewed by: Marilee (Flower) Felisha - Fully Assessed Reason for Visit: Urinary Frequency [1086] Cmt: pain with urination finished macrobid on 05/11 for positive uti [587] Cmt: missed period requesting test Primary Visit Diagnosis:Urinary frequency [R35.0] Other Visit Diagnoses:Missed period [N92.6] Positive test [Z32.01] Order(s):UA DIP, URINE (POC) [0202317] Order #: [id number]. #:[id number] URINE CULTURE [SQURCUL] Order #: [id number] HCG QUAL UR B/O [8254947] Order #: [id number] CONSULT TO ELECTION WATCHER [9021] Order #: [id number]: 1 Prescriptions as of 05/15/2018 Sig: * PROAIR HFA 90 MCG/ACTUATION A* * SPRINTEC (28) 0.25 MG-35 MCG * Take one(1) tablet daily. Patient not taking: No sig reported * FLUTICASONE 110 MCG/ACTUATION* use as directed bid Problem List As Of Date 05/15/2018 Noted Resolved Supervision of Other Normal [Z34.80] INVALID FOR*04/21/2009 Supervision of Other High-Risk [O09.8*INVALID FOR* Asthma [J45.909] INVALID FOR* Other instructions from your clinician: Schedule with ELECTION WATCHER for care appointment. Urine culture pending- will send in prescription for antibiotic if culture is positive. Increase fluid intake- avoid sugary beverages. Encounter Status:Closed by MARILEE CEJA on 05/15/18 Normal [facility] PROGRESSon 05-15-2018 PROGRESS HNO ID: [id number] Author: Marilee (Flower) Felisha Service: (none) Author Type: Nurse Practitioner Type: Progress Notes Filed: 05/15/2018 10:42 AM Note Text: Subjective HPI Melanie BATISTA is a 32 year old female who presents with dysuria and frequency for the past 4 days. She was treated for UTI with Macrobid on 05/06 and finished that medication on the . She states the burning and frequency is improved but she still notices it. She had a few positive urine tests at home. Review of Systems Constitutional: Negative. Negative for fever. Respiratory: Negative. Cardiovascular: Negative. Gastrointestinal: Negative. Negative for abdominal pain, nausea and vomiting. Genitourinary: Positive for dysuria and frequency. Negative for hematuria. Musculoskeletal: Negative for back pain. BP 120/80 Pulse 74 Temp 37.4 ?C (99.3 ?F) (Tympanic) Resp 16 Wt 83.5 kg (184 lb) LMP 03/25/2018 BMI 24.78 kg/m? PAST MEDICAL HISTORY Diagnosis Date - Abnormal Pap smear December 30, 2009 ASCUS, Positive HPV - Asthma PAST SURGICAL HISTORY Procedure Laterality Date - APPENDECTOMY - PAST SURGICAL HISTORY OF WISDOM TEETH - VAGINOSCOPY January 21, 2010 ALLERGIES Biaxin [Clarithromycin]; Latex; Penicillins; Sulfa (Sulfonamide Antibiotics) MEDICATIONS albuterol sulfate(PROAIR HFA 90 MCG/ACTUATION AEROSOL INHALER) norgestimate-ethinyl estradiol(SPRINTEC (28) 0.25 MG-35 MCG TAB) Take one(1) tablet daily. FLUTICASONE 110 MCG/ACTUATION AEROSOL INHALER use as directed bid FAMILY HISTORY Problem Relation Age of Onset - Arthritis Maternal Grandmother - Arthritis Paternal Grandmother - Asthma Paternal Grandmother - Cancer Paternal Grandfather KIDNEY CANCER - Diabetes Paternal Grandfather - Heart Paternal Grandmother - Heart Paternal Aunt - Hypertension Father - Lipids Father Social History Substance Use Topics - Smoking status: Current Every Day Smoker Years: 3.00 Types: Cigarettes Last attempt to quit: 04/18/2009 - Smokeless tobacco: Never Used Comment: 2 Cigarettes per Day - Alcohol use Yes Comment: OCCASIONALLY, BUT NOT WHILE Objective Physical Exam Constitutional: She is well-developed, well-nourished, and in no distress. Cardiovascular: Normal rate and regular rhythm. Pulmonary/Chest: Effort normal and breath sounds normal. Abdominal: Soft. She exhibits no distension and no mass. There is no hepatosplenomegaly. There is no tenderness. There is no guarding and no CVA tenderness. Neurological: She is alert. Skin: Skin is warm and dry. No rash noted. Nursing note and vitals reviewed. ASSESSMENT/PLAN: 1. Urinary frequency - ICD9: 788.41, ICD10: R35.0 (primary diagnosis) acute - Send urine for culture- urine dip negative in office today. - Patient education for prevention given - UA DIP, URINE (POC) - URINE CULTURE 2. Missed period - ICD9: 626.4, ICD10: N92.6 - HCG QUAL UR B/O- positive in office today 3. Positive test - ICD9: V72.42, ICD10: Z32.01 - CONSULT TO ELECTION WATCHER- appointment scheduled for 05/31/2018 - Follow-up with your PCP in 3-5 days if symptoms have not improved or sooner if symptoms worsen - Discussed red flags and need for immediate medical evaluation if any occur. - Discussed supportive care treatment with fluids, rest and analgesia. - Discussed expected course of illness Marilee Ceja APRN.DUMP MOTORMAN Normal [facility] Urine Cultureon 05-15-2018 Bacteria identified Cx Nom (U) Sp. Request/Comment: - Specimen received in preservative Culture Result - 10,000 - <50,000 CFU/ml Enterococcus faecalis --> ABNORMAL ALERT Cephalosporins, clindamycin, and TMP-SMX are not effective for the treatment of enterococcal infections. --> ABNORMAL ALERT Insignificant colony count. No further workup. --> ABNORMAL ALERT <10,000 CFU/ml Normal urogenital yesi Critically abnormal [facility] Comment on above: Performed By: #### U RCUL #### [facility] [address] [place] [address] Culture, urine Bacteria identified Cx Nom (U) Streptococcus agalactiae (B) [facility] Work Phone: Vital Signs Date Time Vital Sign Value Performing Clinician John albarado 09-29-2023 20:43-0500 Body temperature 96.8 [degF] [facility] 09-29-2023 20:43-0500 Diastolic blood pressure 77 mm[Hg] [facility] 09-29-2023 20:43-0500 Heart rate 66 /min [facility] 09-29-2023 20:43-0500 Respiratory rate 14 /min [facility] 09-29-2023 20:43-0500 SaO2% (BldA) [Mass fraction] 100 % [facility] 09-29-2023 20:43-0500 Systolic blood pressure 111 mm[Hg] [facility] 09-29-2023 18:32-0500 Body height 185.42 cm [facility] 09-29-2023 18:32-0500 Body mass index (BMI) [Ratio] 27.6 kg/m2 [facility] 09-29-2023 18:32-0500 Body weight 95.02 kg [facility] 09-27-2023 10:16-0500 Body height 185.4 cm Seferino Ji MD Work Phone: [facility] 09-27-2023 10:16-0500 Body mass index (BMI) [Ratio] 27.05 kg/m2 Seferino Ji MD Work Phone: [facility] 09-27-2023 10:16-0500 Body weight 92.99 kg Seferino Ji MD Work Phone: [facility] 09-27-2023 10:16-0500 Diastolic blood pressure 82 mm[Hg] Seferino Ji MD Work Phone: [facility] 09-27-2023 10:16-0500 Systolic blood pressure 120 mm[Hg] Seferino Ji MD Work Phone: [facility] 09-08-2022 10:20-0500 Body height 186.69 cm No Primary Care Physician [facility] 08-10-2022 12:51-0500 Body mass index (BMI) [Ratio] 27.5 kg/m2 No Primary Care Physician [facility] 08-10-2022 12:51-0500 Body weight 95.87 kg No Primary Care Physician [facility] 08-10-2022 12:51-0500 Diastolic blood pressure 77 mm[Hg] No Primary Care Physician [facility] 08-10-2022 12:51-0500 Systolic blood pressure 117 mm[Hg] No Primary Care Physician [facility] 07-29-2022 13:17-0500 Body temperature 97.7 [degF] No Primary Care Physician [facility] 07-29-2022 13:17-0500 Diastolic blood pressure 68 mm[Hg] No Primary Care Physician [facility] 07-29-2022 13:17-0500 Heart rate 78 /min No Primary Care Physician [facility] 07-29-2022 13:17-0500 Respiratory rate 14 /min No Primary Care Physician [facility] 07-29-2022 13:17-0500 SaO2% (BldA) [Mass fraction] 100 % No Primary Care Physician [facility] 07-29-2022 13:17-0500 Systolic blood pressure 117 mm[Hg] No Primary Care Physician [facility] 07-27-2022 07:43-0500 Body height 186.69 cm No Primary Care Physician [facility] Work Phone: 07-27-2022 07:43-0500 Body mass index (BMI) [Ratio] 26.9 kg/m2 No Primary Care Physician [facility] 07-27-2022 07:43-0500 Body weight 93.7 kg No Primary Care Physician [facility] 07-21-2022 08:14-0500 Body height 185.42 cm No Primary Care Physician [facility] Work Phone: 07-21-2022 08:14-0500 Body mass index (BMI) [Ratio] 27.1 kg/m2 No Primary Care Physician [facility] 07-21-2022 08:14-0500 Body weight 93.15 kg No Primary Care Physician [facility] 07-21-2022 08:14-0500 Diastolic blood pressure 70 mm[Hg] No Primary Care Physician [facility] 07-21-2022 08:14-0500 Systolic blood pressure 114 mm[Hg] No Primary Care Physician [facility] 07-11-2022 14:54-0500 Body mass index (BMI) [Ratio] 27.4 kg/m2 No Primary Care Physician [facility] 07-11-2022 14:54-0500 Body weight 94.34 kg No Primary Care Physician [facility] 07-11-2022 14:54-0500 Diastolic blood pressure 75 mm[Hg] No Primary Care Physician [facility] 07-11-2022 14:54-0500 Systolic blood pressure 123 mm[Hg] No Primary Care Physician [facility] 07-03-2022 15:08-0500 Body mass index (BMI) [Ratio] 27.3 kg/m2 No Primary Care Physician [facility] 07-03-2022 15:08-0500 Body weight 93.89 kg No Primary Care Physician [facility] 07-03-2022 15:08-0500 Diastolic blood pressure 72 mm[Hg] No Primary Care Physician [facility] 07-03-2022 15:08-0500 Systolic blood pressure 120 mm[Hg] No Primary Care Physician [facility] 06-21-2022 13:34-0500 Body weight 94.93 kg No Primary Care Physician [facility] 06-21-2022 13:28-0500 Body mass index (BMI) [Ratio] 27.6 kg/m2 No Primary Care Physician [facility] 06-21-2022 13:28-0500 Diastolic blood pressure 64 mm[Hg] No Primary Care Physician [facility] 06-21-2022 13:28-0500 Systolic blood pressure 110 mm[Hg] No Primary Care Physician [facility] 06-09-2022 11:04-0500 Body mass index (BMI) [Ratio] 27.1 kg/m2 No Primary Care Physician [facility] 06-09-2022 11:04-0500 Body weight 93.15 kg No Primary Care Physician [facility] 06-09-2022 11:04-0500 Diastolic blood pressure 76 mm[Hg] No Primary Care Physician [facility] 06-09-2022 11:04-0500 Systolic blood pressure 118 mm[Hg] No Primary Care Physician [facility] 05-22-2022 13:44-0400 Body height 185.42 cm No Primary Care Physician [facility] Work Phone: 05-22-2022 13:44-0400 Body mass index (BMI) [Ratio] 27.3 kg/m2 No Primary Care Physician [facility] 05-22-2022 13:44-0400 Body weight 93.95 kg No Primary Care Physician [facility] 05-22-2022 13:44-0400 Diastolic blood pressure 81 mm[Hg] No Primary Care Physician [facility] 05-22-2022 13:44-0400 Systolic blood pressure 119 mm[Hg] No Primary Care Physician [facility] 05-08-2022 09:31-0400 Body mass index (BMI) [Ratio] 27.3 kg/m2 No Primary Care Physician [facility] Work Phone: 05-08-2022 09:31-0400 Body weight 93.89 kg No Primary Care Physician [facility] Work Phone: 05-08-2022 09:31-0400 Diastolic blood pressure 76 mm[Hg] No Primary Care Physician [facility] Work Phone: 05-08-2022 09:31-0400 Systolic blood pressure 106 mm[Hg] No Primary Care Physician [facility] Work Phone: 02-27-2022 09:52-0400 Body height 185.42 cm No Primary Care Physician [facility] Work Phone: 02-27-2022 09:52-0400 Body mass index (BMI) [Ratio] 27.2 kg/m2 No Primary Care Physician [facility] Work Phone: 02-27-2022 09:52-0400 Body weight 93.61 kg No Primary Care Physician [facility] Work Phone: 02-27-2022 09:52-0400 Diastolic blood pressure 64 mm[Hg] No Primary Care Physician [facility] Work Phone: 02-27-2022 09:52-0400 Systolic blood pressure 110 mm[Hg] No Primary Care Physician [facility] Work Phone: 02-10-2022 12:23-0400 Diastolic blood pressure 58 mm[Hg] No Primary Care Physician [facility] Work Phone: 02-10-2022 12:23-0400 Heart rate 72 /min No Primary Care Physician [facility] Work Phone: 02-10-2022 12:23-0400 Respiratory rate 16 /min No Primary Care Physician [facility] Work Phone: 02-10-2022 12:23-0400 SaO2% (BldA) [Mass fraction] 98 % No Primary Care Physician [facility] Work Phone: 02-10-2022 12:23-0400 Systolic blood pressure 111 mm[Hg] No Primary Care Physician [facility] Work Phone: 02-10-2022 10:32-0400 Body height 185.42 cm No Primary Care Physician [facility] Work Phone: 02-10-2022 10:32-0400 Body mass index (BMI) [Ratio] 27 kg/m2 No Primary Care Physician [facility] Work Phone: 02-10-2022 10:32-0400 Body temperature 97.1 [degF] No Primary Care Physician [facility] Work Phone: 02-10-2022 10:32-0400 Body weight 92.98 kg No Primary Care Physician [facility] Work Phone: 01-30-2022 09:07-0400 Body height 185.42 cm No Primary Care Physician [facility] Work Phone: 01-30-2022 09:07-0400 Body mass index (BMI) [Ratio] 27 kg/m2 No Primary Care Physician [facility] Work Phone: 01-30-2022 09:07-0400 Body weight 92.98 kg No Primary Care Physician [facility] Work Phone: 01-30-2022 09:07-0400 Diastolic blood pressure 73 mm[Hg] No Primary Care Physician [facility] Work Phone: 01-30-2022 09:07-0400 Systolic blood pressure 119 mm[Hg] No Primary Care Physician [facility] Work Phone: 01-04-2022 13:02-0400 Body height 185.42 cm No Primary Care Physician [facility] Work Phone: 01-04-2022 13:02-0400 Body mass index (BMI) [Ratio] 26.2 kg/m2 No Primary Care Physician [facility] Work Phone: 01-04-2022 13:02-0400 Body weight 89.92 kg No Primary Care Physician [facility] Work Phone: 01-04-2022 13:02-0400 Diastolic blood pressure 74 mm[Hg] No Primary Care Physician [facility] Work Phone: 01-04-2022 13:02-0400 Systolic blood pressure 134 mm[Hg] No Primary Care Physician [facility] Work Phone: 10-01-2021 09:19-0500 Body mass index (BMI) [Ratio] 27 kg/m2 No Primary Care Physician [facility] Work Phone: 10-01-2021 09:19-0500 Body temperature 97.6 [degF] No Primary Care Physician [facility] Work Phone: 10-01-2021 09:19-0500 Body weight 92.98 kg No Primary Care Physician [facility] Work Phone: 10-01-2021 09:19-0500 Diastolic blood pressure 101 mm[Hg] No Primary Care Physician [facility] Work Phone: 10-01-2021 09:19-0500 Heart rate 96 /min No Primary Care Physician [facility] Work Phone: 10-01-2021 09:19-0500 Respiratory rate 16 /min No Primary Care Physician [facility] Work Phone: 10-01-2021 09:19-0500 SaO2% (BldA) [Mass fraction] 100 % No Primary Care Physician [facility] Work Phone: 10-01-2021 09:19-0500 Systolic blood pressure 149 mm[Hg] No Primary Care Physician [facility] Work Phone: 10-01-2021 08:19-0500 Body height 185.42 cm [facility] Work Phone: 10-01-2021 08:19-0500 Body mass index (BMI) [Ratio] 27 kg/m2 [facility] Work Phone: 10-01-2021 08:19-0500 Body temperature 97.6 [degF] [facility] Work Phone: 10-01-2021 08:19-0500 Body weight 92.98 kg [facility] Work Phone: 10-01-2021 08:19-0500 Diastolic blood pressure 101 mm[Hg] [facility] Work Phone: 10-01-2021 08:19-0500 Heart rate 96 /min [facility] Work Phone: 10-01-2021 08:19-0500 Respiratory rate 16 /min [facility] Work Phone: 10-01-2021 08:19-0500 SaO2% (BldA) [Mass fraction] 100 % [facility] Work Phone: 10-01-2021 08:19-0500 Systolic blood pressure 149 mm[Hg] [facility] Work Phone: 09-19-2021 08:07-0500 Body temperature 97.2 [degF] No Primary Care Physician [facility] Work Phone: 09-19-2021 08:07-0500 Diastolic blood pressure 70 mm[Hg] No Primary Care Physician [facility] Work Phone: 09-19-2021 08:07-0500 Heart rate 70 /min No Primary Care Physician [facility] Work Phone: 09-19-2021 08:07-0500 Respiratory rate 16 /min No Primary Care Physician [facility] Work Phone: 09-19-2021 08:07-0500 SaO2% (BldA) [Mass fraction] 100 % No Primary Care Physician [facility] Work Phone: 09-19-2021 08:07-0500 Systolic blood pressure 104 mm[Hg] No Primary Care Physician [facility] Work Phone: 09-19-2021 07:07-0500 Body temperature 97.2 [degF] [facility] Work Phone: 09-19-2021 07:07-0500 Diastolic blood pressure 70 mm[Hg] [facility] Work Phone: 09-19-2021 07:07-0500 Heart rate 70 /min [facility] Work Phone: 09-19-2021 07:07-0500 Respiratory rate 16 /min [facility] Work Phone: 09-19-2021 07:07-0500 SaO2% (BldA) [Mass fraction] 100 % [facility] Work Phone: 09-19-2021 07:07-0500 Systolic blood pressure 104 mm[Hg] [facility] Work Phone: 09-19-2021 06:43-0500 Body mass index (BMI) [Ratio] 25.9 kg/m2 No Primary Care Physician [facility] Work Phone: 09-19-2021 06:43-0500 Body weight 91 kg No Primary Care Physician [facility] Work Phone: 09-19-2021 05:43-0500 Body mass index (BMI) [Ratio] 25.9 kg/m2 [facility] Work Phone: 09-19-2021 05:43-0500 Body weight 91 kg [facility] Work Phone: Encounters Encounter Date Encounter Type Care Provider Facility Start: 09-29-2023 End: 09-29-2023 Emergency department patient visit Wanda Murphy Facility:[facility] Start: 09-29-2023 End: 09-29-2023 Emergency department patient visit [facility] Work Phone: Start: 09-27-2023 End: 09-27-2023 ambulatory SEFERINO JI [facility] Start: 09-27-2023 End: 09-27-2023 Office outpatient new 30 minutes Seferino Ji MD Work Phone: [facility] Comment on above: Medial epicondylitis of elbow, right Start: 09-13-2022 Patient encounter procedure No Primary Care Physician [facility], [facility] Start: 09-08-2022 Non-patient / Non-visit No Stacy motley Care Physician [facility] Start: 09-08-2022 End: 09-08-2022 ambulatory No Primary Care Physician [facility] Work Phone: Start: 09-08-2022 End: 09-08-2022 Patient encounter procedure No Primary Care Physician [facility] Start: 09-08-2022 End: 09-08-2022 Patient encounter procedure No Primary Care Physician [facility] Start: 08-03-2022 End: 08-03-2022 Patient encounter procedure No Primary Care Physician [facility] Care Start: 07-31-2022 End: 07-31-2022 Patient encounter procedure No Primary Care Physician [facility] Start: 07-29-2022 Non-patient / Non-visit No Stacy motley Care Physician [facility] Start: 07-28-2022 Non-patient / Non-visit No Stacy motley Care Physician [facility] Start: 07-27-2022 Non-patient / Non-visit No Stacy motley Care Physician [facility] Start: 07-27-2022 End: 07-29-2022 Evaluation and management of inpatient No Primary Care Physician [facility] Start: 07-25-2022 End: 07-25-2022 ambulatory No Primary Care Physician [facility] Work Phone: Start: 07-25-2022 End: 07-25-2022 Patient encounter procedure No Primary Care Physician [facility] Start: 07-21-2022 End: 07-21-2022 Patient encounter procedure No Primary Care Physician [facility] Start: 07-20-2022 End: 07-20-2022 ambulatory CAR[place] WEI [facility] [place] [facility] Start: 07-11-2022 End: 07-11-2022 Patient encounter procedure No Primary Care Physician [facility] Start: 07-03-2022 End: 07-03-2022 Patient encounter procedure No Primary Care Physician [facility] Start: 06-28-2022 End: 06-28-2022 ambulatory MD NO PRIMARY CARE [facility] [place] [facility] Start: 06-21-2022 End: 06-21-2022 Patient encounter procedure No Primary Care Physician [facility] Start: 06-09-2022 End: 06-09-2022 Patient encounter procedure No Primary Care Physician [facility] Start: 05-22-2022 End: 05-22-2022 ambulatory No Primary Care Physician [facility] Work Phone: Start: 05-22-2022 End: 05-22-2022 Patient encounter procedure No Primary Care Physician [facility] Start: 05-08-2022 End: 05-08-2022 Patient encounter procedure No Primary Care Physician [facility] Start: 04-24-2022 End: 04-24-2022 ambulatory [facility] Start: 04-11-2022 End: 04-11-2022 ambulatory [facility] Start: 04-11-2022 End: 04-11-2022 ambulatory [facility] Start: 03-29-2022 End: 03-30-2022 ambulatory NO PRIMARY CARE [facility] [place] [facility] Start: 03-29-2022 End: 03-29-2022 Subsequent hospital visit by physician Carlo Wolf MD Work Phone: [facility] Comment on above: Intrauterine growth restriction (IUGR) affecting care of mother, second trimester, single gestation Start: 03-29-2022 End: 03-29-2022 ambulatory MD NO PRIMARY CARE [facility] [place] [facility] Start: 03-17-2022 End: 03-17-2022 ambulatory No Primary Care Physician [facility] Work Phone: Start: 03-17-2022 End: 03-17-2022 Patient encounter procedure No Primary Care Physician [facility] Start: 02-27-2022 End: 02-27-2022 Patient encounter procedure No Primary Care Physician [facility] Start: 02-10-2022 End: 02-10-2022 Emergency department patient visit No Primary Care Physician [facility] Start: 01-30-2022 End: 01-30-2022 Patient encounter procedure No Primary Care Physician [facility] Start: 01-04-2022 End: 01-04-2022 Patient encounter procedure No Primary Care Physician [facility] Start: 01-04-2022 End: 01-04-2022 Patient encounter procedure No Primary Care Physician [facility], Specimen Start: 12-15-2021 End: 12-15-2021 Patient encounter procedure [facility] Start: 12-08-2021 End: 12-08-2021 Patient encounter procedure [facility], [facility] Start: 12-06-2021 End: 12-06-2021 Patient encounter procedure [facility] Start: 10-01-2021 End: 10-01-2021 [facility] Start: 09-19-2021 End: 09-19-2021 Admission to same day surgery center [facility] Procedures Date Procedure Procedure Detail Performing Clinician Start: 09-29-2023 Plain chest X-ray Start: 09-13-2022 US scan of thyroid No P rimary Care Physician Start: 07-28-2022 Post Bilatera l Tubal Occulsion (Bilateral) No Primary Care Physician Start: 07-25-2022 Ultrasonography for biophysical profile without non-stress testing No Primary Care Physician Start: 03-17-2022 anatomy study No Primary Care Physician Start: 02-10-2022 Ultrasound scan for growth No Primary Care Physician Start: 02-10-2022 US urinary tract No Stacy tolu Care Physician Start: 12-15-2021 Transvaginal obstetr ic ultrasonography Start: 12-06-2021 Transvaginal obstetr ic ultrasonography Start: 05-31-2018 Antibody screen Comment on above: Performed By: #### T SPN #### [facility] [address] [place], [place] [address] Urine culture No Primary Car e Physician Plan of Treatment Date Care Activity Detail Author Start: 2046 RSV Immunization age d 60 or older (1 - 1-dose 60+ series) RSV Immunization aged 60 or older (1 - 1-dose 60+ series) [facility] Start: 2036 Zoster Vaccines (1 of 2) Zoste r Vaccines (1 of 2) [facility] Start: 05-22-2032 DTaP/Tdap/Td Vaccine s (2 - Td or Tdap) DTaP/Tdap/Td Vaccines (2 - Td or Tdap) [facility] Start: 09-29-2023 [facility] Start: 09-29-2023 [facility] Start: 03-23-2023 COVID-19 Vaccine ( season) COVID-19 Vaccine ( season) [facility] Start: 03-23-2023 Influenza vaccination Influenza Vacc ine (#1) [facility] Start: 07-29-2022 Patient discharge [facility] Start: 07-28-2022 Administration of medication [facility] Start: 07-28-2022 Application of ice c ollar, cap or bag [facility] Start: 07-28-2022 Catheterization of vein [facility] Start: 07-28-2022 Introduction of urin ly catheter [facility] Start: 07-28-2022 Measuring intake and output [facility] Start: 07-28-2022 Notification of physician [facility] Start: 07-28-2022 Procedure discontinued [facility] Start: 07-28-2022 Provision of activit y privileges [facility] Start: 07-28-2022 Vital signs measurements [facility] Start: 07-28-2022 [facility] Start: 07-28-2022 [facility] Work Phone: Start: 07-27-2022 Admission procedure [facility] Start: 04-11-2022 End: 09-20-2022 Professional / ancillary services management 04/11/2022 Ancillary Procedure Visit Maternal Medicine Carolina Wei MD [address] [address] [facility] Start: 03-23-2022 FLU (#1) FLU (#1) [facility] Start: 03-17-2022 Transvaginal obstetr ic ultrasonography [facility] Work Phone: Start: 01-04-2022 Chlamydia deoxyribon ucleic acid detection [facility] Work Phone: Start: 10-18-2021 COVID-19 (3 - Booste r for Moderna series) COVID-19 (3 - Booster for Moderna series) [facility] [place] [facility] Start: 09-19-2021 Anes transurethral w/urethrocystoscopy nos ANESTH BLADDER SURGERY [facility] Work Phone: Start: 09-19-2021 Cystourethroscopy CYSTOSCOPY [facility] Work Phone: Start: 09-19-2021 Patient discharge [facility] Work Phone: Start: 2016 Screening for malign ant neoplasm of cervix [facility] Start: 06-29-2009 MMR Vaccines (1 of 1 - Standard series) MMR Vaccines (1 of 1 - Standard series) [facility] Start: 06-29-2009 Varicella vaccination Varicell a Vaccines (1 of 2 - 2-dose childhood series) [facility] Start: 12-29-2007 Microscopic observat ion [Identifier] in Cervix by Cyto stain Pap Smear [facility] [place] [facility] Start: 12-29-2007 Screening for malign ant neoplasm of cervix Pap Smear [facility] Start: 2004 Hepatitis C screening Hepatitis C Sc reening [facility] Start: 2002 MenB (1 of 2 - MenB 2-Dose Series) MenB (1 of 2 - MenB 2-Dose Series) [facility] [place] [facility] Start: 1998 Depression Screening Depression Scre ening [facility] Start: 1993 Tetanus Diphtheria a nd Pertussis Vaccines (1 - Tdap) Tetanus Diphtheria and Pertussis Vaccines (1 - Tdap) [facility] [place] [facility] Start: 12-29-1987 MMR (1 of 1 - Standa rd series) MMR (1 of 1 - Standard series) [facility] [place] [facility] Start: 12-29-1987 Varicella (1 of 2 - 2-dose childhood series) Varicella (1 of 2 - 2-dose childhood series) [facility] [place] [facility] Start: 1986 Hepatitis B Vaccines (1 of 3 - 3-dose series) Hepatitis B Vaccines (1 of 3 - 3-dose series) [facility] Start: 1986 HIV screening HIV Screening [facility] End: 03-29-2022 Antithrombin III Activity [facility] Comment on above: 1 Occurrences starti ng 03/29/2022 until 03/29/2022 End: 03-29-2022 Beta 2 Glycoprotein IgG, IgM, IgA [facility] [place] [facility] Comment on above: 1 Occurrences starti ng 03/29/2022 until 03/29/2022 End: 03-29-2022 Cardiolipin Ab [facility] [place] [facility] Comment on above: 1 Occurrences starti ng 03/29/2022 until 03/29/2022 CBC W Auto Different ial panel - Blood [facility] Work Phone: End: 03-29-2022 CMV IgG Ab [facility] [place] [facility] Comment on above: 1 Occurrences starti ng 03/29/2022 until 03/29/2022 End: 03-29-2022 CMV IgM Ab [facility] [place] [facility] Comment on above: 1 Occurrences starti ng 03/29/2022 until 03/29/2022 End: 03-29-2022 CMV PCR Quantitative [facility] [place] [facility] Comment on above: 1 Occurrences starti ng 03/29/2022 until 03/29/2022 End: 03-29-2022 Dilute RVVT SCREEN RATIO WITH REFLEX [facility] [place] [facility] Comment on above: 1 Occurrences starti ng 03/29/2022 until 03/29/2022 End: 03-29-2022 Factor V Leiden DNA [facility] Work Phone: Comment on above: 1 Occurrences starti ng 03/29/2022 until 03/29/2022 anatomy study [facility] Work Phone: Biophysical pr ofile panel US [facility] Work Phone: Biophysical pr ofile panel [facility] Hepatitis B surface antigen measurement [facility] Work Phone: Hepatitis C antibody measurement [facility] Work Phone: HIV 1+2 Ab+HIV1 p24 Ag [Presence] in Serum or Plasma by Immunoassay [facility] Work Phone: End: 03-29-2022 Miscellaneous sendout Miscellaneous sendout Lab Routine For lab collect this frequency defaults to the next routine lab draw time. Routine times: 0600; 1100; 1400; 1900; 2200 for 1 Occurrences starting 03/29/2022 until 03/29/2022 [facility] [place] [facility] Comment on above: For lab collect this frequency defaults to the next routine lab draw time. Routine times: 0600; 1100; 1400; 1900; 2200 for 1 Occurrences starting 03/29/2022 until 03/29/2022 Miscellaneous sendout: Miscellan eous sendout: Lab Routine 03/29/2022 1:28 PM EDT [facility] [place] [facility] Neisseria gonorrhoea e rRNA [Presence] in Unspecified specimen by OSMAN with probe detection [facility] Work Phone: End: 03-29-2022 Parvovirus B19 IgG & IgM Ab [facility] Comment on above: 1 Occurrences starti ng 03/29/2022 until 03/29/2022 Patient Education [facility] Work Phone: Patient referral [facility] Work Phone: PCR test for Chlamyd ia trachomatis [facility] Work Phone: End: 03-29-2022 Protein C activity (chromogenic) [facility] [place] [facility] Comment on above: 1 Occurrences starti ng 03/29/2022 until 03/29/2022 End: 03-29-2022 Protein S Antigen, Plasma [facility] Comment on above: 1 Occurrences starti ng 03/29/2022 until 03/29/2022 End: 03-29-2022 Prothrombin [id number] DNA Test [facility] Comment on above: 1 Occurrences starti ng 03/29/2022 until 03/29/2022 End: 03-29-2022 Rapid Plasma Reagin [facility] [place] [facility] Comment on above: 1 Occurrences starti ng 03/29/2022 until 03/29/2022 End: 03-29-2022 Rubella IgG Ab [facility] [place] [facility] Comment on above: 1 Occurrences starti ng 03/29/2022 until 03/29/2022 Rubella IgG measurement [facility] Work Phone: End: 03-29-2022 Toxoplasma IgG & IgM [facility] [place] [facility] Comment on above: 1 Occurrences starti ng 03/29/2022 until 03/29/2022 Transvaginal obstetr ic ultrasonography [facility] Work Phone: Treponema sp Ab [Pre sence] in Serum [facility] Work Phone: Immunizations Immunization Date Immunization Notes Care Provider [facility] 05-22-2022 influenza, injectabl e, quadrivalent, preservative free [facility] 05-22-2022 influenza, seasonal, injectable No Primary Care Physician [facility] 05-22-2022 tetanus toxoid, redu beau diphtheria toxoid, and acellular pertussis vaccine, adsorbed No Primary Care Physician [facility] 05-22-2022 influenza virus vaccine, unspecified formulation Seferino Ji MD Work Phone: [facility] 05-23-2015 influenza, seasonal, injectable Seferino Ji MD Work Phone: [facility] 04-22-2014 influenza, seasonal, injectable Seferino Ji MD Work Phone: [facility] 06-01-2009 novel [id number], preservative-free, injectable Seferino Ji MD Work Phone: [facility] 04-21-2009 influenza virus vaccine, unspecified formulation Seferino Ji MD Work Phone: [facility] Payers Date Payer Category Payer Self-pay [id number] 2021 Unknown [id number] 2020 Unknown [id number] 1986 Unknown [id number] 2.16. [id number] 1986 Unknown [id number] 2.16. [id number] 1986 Unknown [id number] 2.16. [id number] 1986 Unknown [id number] 2.16. [id number] 1986 Unknown [id number] 2.16. [id number] 1986 Unknown [id number] 2.16. [id number] 1986 Unknown [id number] 2.16. [id number] 1986 Unknown [id number] 2.16. [id number] 1986 Unknown [id number] 2.16. [id number] Unknown [id number] Unknown [id number] Unknown [id number] Social History Date Type Detail Facility [facility] Work Phone: Start: 10-01-2021 End: 09-29-2023 Tobacco smoking status COIS Unknown if ever smoked [facility] Start: 1985 Sex Assigned At Female [facility] Start: 03-29-2022 Tobacco smoking stat us COIS Ex-smoker [facility] [place] [facility] End: 07-23-2016 History of tobacco use Current smoker [facility] [place] [facility] End: 07-23-2016 History of tobacco use Cigarette Smoker [facility] [place] [facility] Start: 03-29-2022 Tobacco use and exposure User of smokeless tobacco [facility] [place] [facility] Start: 03-29-2022 Alcohol intake Ex-drinker (finding) [facility] [place] [facility] Start: 03-29-2022 Tobacco Comment Pt does when s he drives. Uses 1.8 [facility] [place] [facility] Start: 11-17-2021 [facility] Start: 1985 Sex Assigned At Not on file [facility] Start: 03-19-2022 End: 03-29-2022 Exposure to SARS-CoV-2 (event) Not sure [facility] [place] [facility] Start: 09-27-2023 Tobacco smoking stat [facility] Never smoked tobacco [facility] Start: 09-27-2023 Tobacco use and exposure Smokeless tobacco non-user [facility] Start: 09-27-2023 History of Social function [facility] Start: 09-27-2023 Tobacco use panel [facility] Start: 09-20-2023 Gender identity Identifies as female gender (finding) [facility] Start: 09-20-2023 Sexual orientation Heterosexual (fin susie) [facility] Medical Equipment Procedure Code Equipment Code Equipment Origin al Text Equipment Identifier Dates [employer] FDA Start : 07-28-2022 [employer] FDA Start : 07-28-2022 Goals Date Patient Goal Desired Activity /State Mental Status Date Assessment Result Facility 09-29-2023 Cognitive function Level Of Cons ciousness Awake;Alert;Appropriate [facility] Work Phone: 07-28-2022 Cognitive function Level Of Cons ciousness Awake;Alert;Appropriate [facility] Work Phone: 07-28-2022 Cognitive function Touch/Shaking [facility] Work Phone: 09-19-2021 Cognitive function Voice/Name [facility] Work Phone: Clinical Notes 09-27-2023 Seferino Ji MD - 09/27/2023 10:15 AM EST Note Date & Type Note Facility 09-27-2023 History of Presen t illness Narrative Images from the original note were not included. [facility] [address] [place] [address] Dept: [phone] Dept Chief Complaint Patient presents with New Patient Right elbow, referred from [facility] Melanie Batista is a 37 y.o. right [...] Ji MD Hand and Upper Extremity Surgery [facility] Department of Orthopaedics and Sports Medicine 09/27/2023 (Please note that portions of this note may have been completed with a voice recognition program. Efforts were made to edit the dictations but occasionally words are mis-transcribed.) documented in this encounter [facility] Evaluation note Diagnosis Onset Date Frequency of micturition acu te Urgency of micturition acute Urinary tract infection acut e [facility] Work Phone: Evaluation note* Diagnosis Onset Date Resolution Status Frequency of micturition acu te Urgency of micturition acute Urinary tract infection acut e AMA (advanced maternal age) multigravida 35+ acute Anemia affecting a cute Anxiety with depression acut e History of labor, current acute acute Supervision of high risk eld erly multigravida in first trimester acute [facility] Work Phone: Evaluation note* Diagnosis Onset Date Resolution Status AMA (advanced maternal age) multigravida 35+ acute Anemia affecting a cute Anxiety with depression acut e History of labor, current acute acute Supervision of high risk eld erly multigravida in first trimester acute AMA (advanced maternal age) multigravida 35+ acute Anemia affecting a cute Anxiety with depression acut e GBS (group B streptococcus) UTI complicating acute History of labor, current acute acute Supervision of high risk eld erly multigravida in first trimester acute [facility] Work Phone: Evaluation note* Diagnosis Onset Date Resolution Status AMA (advanced maternal age) multigravida 35+ acute Anemia affecting a cute Anxiety with depression acut e History of labor, current acute acute Supervision of high risk eld erly multigravida in first trimester acute AMA (advanced maternal age) multigravida 35+ acute Anemia affecting a cute Anxiety with depression acut e GBS (group B streptococcus) UTI complicating acute History of labor, current acute acute Supervision of high risk eld erly multigravida in first trimester acute AMA (advanced maternal age) multigravida 35+ acute Anemia affecting a cute Anxiety with depression acut e GBS (group B streptococcus) UTI complicating acute History of labor, current acute acute Supervision of high risk eld erly multigravida in first trimester acute [facility] Work Phone: Evaluation note* Diagnosis Intrauterine growth restriction (IUGR) affecting care of mother, second trimester, single gestation [facility] Diagnosis Onset Date Resolution Status AMA (advanced maternal age) multigravida 35+ acute Anxiety with depression acut e GBS (group B streptococcus) UTI complicating acute History of labor, current acute acute Supervision of high risk eld erly multigravida in first trimester acute AMA (advanced maternal age) multigravida 35+ acute Anxiety with depression acut e GBS (group B streptococcus) UTI complicating acute History of labor, current acute acute Supervision of high risk eld erly multigravida in first trimester acute AMA (advanced maternal age) multigravida 35+ acute Anxiety with depression acut e GBS (group B streptococcus) UTI complicating acute History of labor, current acute IUGR (intrauterine growth restriction) acute Low lying placenta nos or wi thout hemorrhage, third trimester acute acute Supervision of high risk eld erly multigravida in first trimester acute AMA (advanced maternal age) multigravida 35+ acute Anxiety with depression acut e GBS (group B streptococcus) UTI complicating acute History of labor, current acute IUGR (intrauterine growth restriction) acute Low lying placenta nos or wi thout hemorrhage, third trimester acute acute Supervision of high risk eld erly multigravida in first trimester acute [facility] Work Phone: Evaluation note* Diagnosis Onset Date Resolution Status AMA (advanced maternal age) multigravida 35+ acute Anxiety with depression acut e GBS (group B streptococcus) UTI complicating acute History of labor, current acute acute Supervision of high risk eld erly multigravida in first trimester acute IUGR (intrauterine growth restriction) resolved Low lying placenta nos or wi thout hemorrhage, third trimester resolved AMA (advanced maternal age) multigravida 35+ acute Anxiety with depression acut e GBS (group B streptococcus) UTI complicating acute History of labor, current acute acute Supervision of high risk eld erly multigravida in first trimester acute IUGR (intrauterine growth restriction) resolved Low lying placenta nos or wi thout hemorrhage, third trimester resolved AMA (advanced maternal age) multigravida 35+ acute Anemia affecting a cute Anxiety with depression acut e GBS (group B streptococcus) UTI complicating acute History of labor, current acute acute Supervision of high risk eld erly multigravida in first trimester acute IUGR (intrauterine growth restriction) resolved Low lying placenta nos or wi thout hemorrhage, third trimester resolved AMA (advanced maternal age) multigravida 35+ acute Anemia affecting a cute Anxiety with depression acut e GBS (group B streptococcus) UTI complicating acute History of labor, current acute acute Supervision of high risk eld erly multigravida in first trimester acute IUGR (intrauterine growth restriction) resolved Low lying placenta nos or wi thout hemorrhage, third trimester resolved AMA (advanced maternal age) multigravida 35+ acute Anemia affecting a cute Anxiety with depression acut e GBS (group B streptococcus) UTI complicating acute History of labor, current acute acute Supervision of high risk eld erly multigravida in first trimester acute AMA (advanced maternal age) multigravida 35+ acute Anemia affecting a cute Anxiety with depression acut e GBS (group B streptococcus) UTI complicating acute History of labor, current acute acute Supervision of high risk eld erly multigravida in first trimester acute AMA (advanced maternal age) multigravida 35+ acute Anemia affecting a cute Anxiety with depression acut e GBS (group B streptococcus) UTI complicating acute History of labor, current acute acute Supervision of high risk eld erly multigravida in first trimester acute [facility] Work Phone: Evaluation note* Diagnosis Onset Date Resolution Status Anxiety with depression acut e AMA (advanced maternal age) multigravida 35+ resolved GBS (group B streptococcus) UTI complicating resolved History of labor, current resolved IUGR (intrauterine growth restriction) resolved Low lying placenta nos or wi thout hemorrhage, third trimester resolved resolved Supervision of high risk eld erly multigravida in first trimester resolved Anxiety with depression acut e AMA (advanced maternal age) multigravida 35+ resolved GBS (group B streptococcus) UTI complicating resolved History of labor, current resolved IUGR (intrauterine growth restriction) resolved Low lying placenta nos or wi thout hemorrhage, third trimester resolved resolved Supervision of high risk eld erly multigravida in first trimester resolved Anxiety with depression acut e AMA (advanced maternal age) multigravida 35+ resolved Anemia affecting r esolved GBS (group B streptococcus) UTI complicating resolved History of labor, current resolved IUGR (intrauterine growth restriction) resolved Low lying placenta nos or wi thout hemorrhage, third trimester resolved resolved Supervision of high risk eld erly multigravida in first trimester resolved Anxiety with depression acut e AMA (advanced maternal age) multigravida 35+ resolved Anemia affecting r esolved GBS (group B streptococcus) UTI complicating resolved History of labor, current resolved IUGR (intrauterine growth restriction) resolved Low lying placenta nos or wi thout hemorrhage, third trimester resolved resolved Supervision of high risk eld erly multigravida in first trimester resolved Anxiety with depression acut e AMA (advanced maternal age) multigravida 35+ resolved Anemia affecting r esolved GBS (group B streptococcus) UTI complicating resolved History of labor, current resolved resolved Supervision of high risk eld erly multigravida in first trimester resolved Anxiety with depression acut e AMA (advanced maternal age) multigravida 35+ resolved Anemia affecting r esolved GBS (group B streptococcus) UTI complicating resolved History of labor, current resolved resolved Supervision of high risk eld erly multigravida in first trimester resolved Anxiety with depression acut e AMA (advanced maternal age) multigravida 35+ resolved Anemia affecting r esolved GBS (group B streptococcus) UTI complicating resolved History of labor, current resolved resolved Supervision of high risk eld erly multigravida in first trimester resolved Anxiety with depression acut e Sterilization acute Vaginal delivery acute AMA (advanced maternal age) multigravida 35+ resolved Anemia affecting r esolved Encounter for induction of labor resolved GBS (group B streptococcus) UTI complicating resolved History of labor, current resolved IUGR (intrauterine growth restriction) resolved resolved Supervision of high risk eld erly multigravida in first trimester resolved [facility] Work Phone: Evaluation note* Diagnosis Onset Date Resolution Status Anxiety with depression acut e AMA (advanced maternal age) multigravida 35+ resolved GBS (group B streptococcus) UTI complicating resolved History of labor, current resolved IUGR (intrauterine growth restriction) resolved Low lying placenta nos or wi thout hemorrhage, third trimester resolved resolved Supervision of high risk eld erly multigravida in first trimester resolved Anxiety with depression acut e AMA (advanced maternal age) multigravida 35+ resolved Anemia affecting r esolved GBS (group B streptococcus) UTI complicating resolved History of labor, current resolved IUGR (intrauterine growth restriction) resolved Low lying placenta nos or wi thout hemorrhage, third trimester resolved resolved Supervision of high risk eld erly multigravida in first trimester resolved Anxiety with depression acut e AMA (advanced maternal age) multigravida 35+ resolved Anemia affecting r esolved GBS (group B streptococcus) UTI complicating resolved History of labor, current resolved IUGR (intrauterine growth restriction) resolved Low lying placenta nos or wi thout hemorrhage, third trimester resolved resolved Supervision of high risk eld erly multigravida in first trimester resolved Anxiety with depression acut e AMA (advanced maternal age) multigravida 35+ resolved Anemia affecting r esolved GBS (group B streptococcus) UTI complicating resolved History of labor, current resolved resolved Supervision of high risk eld erly multigravida in first trimester resolved Anxiety with depression acut e AMA (advanced maternal age) multigravida 35+ resolved Anemia affecting r esolved GBS (group B streptococcus) UTI complicating resolved History of labor, current resolved resolved Supervision of high risk eld erly multigravida in first trimester resolved Anxiety with depression acut e AMA (advanced maternal age) multigravida 35+ resolved Anemia affecting r esolved GBS (group B streptococcus) UTI complicating resolved History of labor, current resolved resolved Supervision of high risk eld erly multigravida in first trimester resolved Anxiety with depression acut e AMA (advanced maternal age) multigravida 35+ resolved Anemia affecting r esolved Encounter for induction of labor resolved GBS (group B streptococcus) UTI complicating resolved History of labor, current resolved IUGR (intrauterine growth restriction) resolved resolved Supervision of high risk eld erly multigravida in first trimester resolved nipple pain nonea ctive Care and examination of lactating mother noneactive Care and examination of lactating mother noneactive Leg edema acute Thyromegaly acute care and examination noneactive [facility] Work Phone: Evaluation note* Diagnosis Medial epicondylitis of elbow, right [facility] Work Phone: Hospital Discharge instructions Additional Instructions You had a negative chest pain workup today. Please return here for any worsening symptomsWMed[facility] Work Phone: Summary Purpose Family History No Family History Records Found Relationship Condition Age at Onset Recorded Date/T flori father Diabetes mellitus Unknown Cardiac disease Unknown Hypertension Unknown Hyperlipidemia Unknown Advance Directives No Advanced Directives Records Found Advance Directive Response Recorded Date/ Time Living Will No October 01, 2021 11:12am Power of Corporation Lawyer No October 01 11:12am Advance Directive Response Recorded Date/ Time Living Will No December 15, 2021 1 :51pm Power of Corporation Lawyer No December 15, 2021 1:51pm Advance Directive Response Recorded Date/ Time Living Will No February 10, 2022 11:07am Power of Corporation Lawyer No February 10 11:07am Advance Directive Response Recorded Date/ Time Living Will No May 05 11:27am Power of Corporation Lawyer No May 05, 2022 11:27am Advance Directive Response Recorded Date/ Time Living Will No May 05 10:27am Power of Corporation Lawyer No May 05, 2022 10:27am Advance Directive Response Recorded Date/ Time Living Will No July 27 3 8:04am Power of Corporation Lawyer No July 27 023 8:04am Advance Directive Response Recorded Date/ Time Living Will No August 10 12:51pm Power of Corporation Lawyer No August 10, 2022 12:51pm Advance Directive Response Recorded Date/ Time Living Will No September 29, 2023 7:14pm Power of Corporation Lawyer No September 28 7:14pm Chief Complaint and Reason for Visit Chief Complaint CYSTO PELVIC EXAM UN GENESIS ANES female issues THREATENED e order Reason for Visit Frequency of micturi tion Urgency of micturition Urinary tract infection Chief Complaint CYSTO PELVIC EXAM UN GENESIS ANES female issues THREATENED e order Encounter for supervision of normal , uns Reason for Visit Frequency of micturi tion Urgency of micturition Urinary tract infection Chief Complaint CYSTO PELVIC EXAM UN GENESIS ANES female issues THREATENED e order Encounter for supervision of normal , uns New OB 6 wks on 12/15 US Reason for Visit Frequency of micturi tion Urgency of micturition Urinary tract infection AMA (advanced maternal age) multigravida 35+ Anemia affecting Anxiety with depression History of labor, current Supervision of high risk elderly multigravida in first trimester Chief Complaint THREATENED e order Encounter for supervision of normal , uns New OB 6 wks on 12/15 US 12 WK OB Reason for Visit AMA (advanced matern al age) multigravida 35+ Anemia affecting Anxiety with depression History of labor, current Supervision of high risk elderly multigravida in first trimester AMA (advanced maternal age) multigravida 35+ Anemia affecting Anxiety with depression GBS (group B streptococcus) UTI complicating History of labor, current Supervision of high risk elderly multigravida in first trimester Chief Complaint THREATENED e order Encounter for supervision of normal , uns New OB 6 wks on 12/15 US 12 WK OB ABD PAIN Reason for Visit AMA (advanced matern al age) multigravida 35+ Anemia affecting Anxiety with depression History of labor, current Supervision of high risk elderly multigravida in first trimester AMA (advanced maternal age) multigravida 35+ Anemia affecting Anxiety with depression GBS (group B streptococcus) UTI complicating History of labor, current Supervision of high risk elderly multigravida in first trimester Chief Complaint THREATENED e order Encounter for supervision of normal , uns New OB 6 wks on 12/15 US 12 WK OB ABD PAIN 16 WK OB GROWTH Reason for Visit AMA (advanced matern al age) multigravida 35+ Anemia affecting Anxiety with depression History of labor, current Supervision of high risk elderly multigravida in first trimester AMA (advanced maternal age) multigravida 35+ Anemia affecting Anxiety with depression GBS (group B streptococcus) UTI complicating History of labor, current Supervision of high risk elderly multigravida in first trimester AMA (advanced maternal age) multigravida 35+ Anemia affecting Anxiety with depression GBS (group B streptococcus) UTI complicating History of labor, current Supervision of high risk elderly multigravida in first trimester Chief Complaint 12 WK OB ABD PAIN 16 WK OB GROWTH 27 WK OB, see phone note 29 WK OB Reason for Visit AMA (advanced matern al age) multigravida 35+ Anxiety with depression GBS (group B streptococcus) UTI complicating History of labor, current Supervision of high risk elderly multigravida in first trimester AMA (advanced maternal age) multigravida 35+ Anxiety with depression GBS (group B streptococcus) UTI complicating History of labor, current Supervision of high risk elderly multigravida in first trimester AMA (advanced maternal age) multigravida 35+ Anxiety with depression GBS (group B streptococcus) UTI complicating History of labor, current IUGR (intrauterine growth restriction) Low lying placenta nos or without hemorrhage, third trimester Supervision of high risk elderly multigravida in first trimester AMA (advanced maternal age) multigravida 35+ Anxiety with depression GBS (group B streptococcus) UTI complicating History of labor, current IUGR (intrauterine growth restriction) Low lying placenta nos or without hemorrhage, third trimester Supervision of high risk elderly multigravida in first trimester Chief Complaint 27 WK OB, see phone note 29 WK OB 31 WK OB 33wk ob 35 WK OB 36 WK OB 37 WK OB PLACENTA PREVIA Reason for Visit AMA (advanced matern al age) multigravida 35+ Anxiety with depression GBS (group B streptococcus) UTI complicating History of labor, current Supervision of high risk elderly multigravida in first trimester IUGR (intrauterine growth restriction) Low lying placenta nos or without hemorrhage, third trimester AMA (advanced maternal age) multigravida 35+ Anxiety with depression GBS (group B streptococcus) UTI complicating History of labor, current Supervision of high risk elderly multigravida in first trimester IUGR (intrauterine growth restriction) Low lying placenta nos or without hemorrhage, third trimester AMA (advanced maternal age) multigravida 35+ Anemia affecting Anxiety with depression GBS (group B streptococcus) UTI complicating History of labor, current Supervision of high risk elderly multigravida in first trimester IUGR (intrauterine growth restriction) Low lying placenta nos or without hemorrhage, third trimester AMA (advanced maternal age) multigravida 35+ Anemia affecting Anxiety with depression GBS (group B streptococcus) UTI complicating History of labor, current Supervision of high risk elderly multigravida in first trimester IUGR (intrauterine growth restriction) Low lying placenta nos or without hemorrhage, third trimester AMA (advanced maternal age) multigravida 35+ Anemia affecting Anxiety with depression GBS (group B streptococcus) UTI complicating History of labor, current Supervision of high risk elderly multigravida in first trimester AMA (advanced maternal age) multigravida 35+ Anemia affecting Anxiety with depression GBS (group B streptococcus) UTI complicating History of labor, current Supervision of high risk elderly multigravida in first trimester AMA (advanced maternal age) multigravida 35+ Anemia affecting Anxiety with depression GBS (group B streptococcus) UTI complicating History of labor, current Supervision of high risk elderly multigravida in first trimester Chief Complaint 27 WK OB, see phone note 29 WK OB 31 WK OB 33wk ob 35 WK OB 36 WK OB 37 WK OB PLACENTA PREVIA VAGINAL DELIVERY INDUCTION VAGINAL DELIVERY VAGINAL DELIVERY Reason for Visit Anxiety with depress ion AMA (advanced maternal age) multigravida 35+ GBS (group B streptococcus) UTI complicating History of labor, current IUGR (intrauterine growth restriction) Low lying placenta nos or without hemorrhage, third trimester Supervision of high risk elderly multigravida in first trimester Anxiety with depression AMA (advanced maternal age) multigravida 35+ GBS (group B streptococcus) UTI complicating History of labor, current IUGR (intrauterine growth restriction) Low lying placenta nos or without hemorrhage, third trimester Supervision of high risk elderly multigravida in first trimester Anxiety with depression AMA (advanced maternal age) multigravida 35+ Anemia affecting GBS (group B streptococcus) UTI complicating History of labor, current IUGR (intrauterine growth restriction) Low lying placenta nos or without hemorrhage, third trimester Supervision of high risk elderly multigravida in first trimester Anxiety with depression AMA (advanced maternal age) multigravida 35+ Anemia affecting GBS (group B streptococcus) UTI complicating History of labor, current IUGR (intrauterine growth restriction) Low lying placenta nos or without hemorrhage, third trimester Supervision of high risk elderly multigravida in first trimester Anxiety with depression AMA (advanced maternal age) multigravida 35+ Anemia affecting GBS (group B streptococcus) UTI complicating History of labor, current Supervision of high risk elderly multigravida in first trimester Anxiety with depression AMA (advanced maternal age) multigravida 35+ Anemia affecting GBS (group B streptococcus) UTI complicating History of labor, current Supervision of high risk elderly multigravida in first trimester Anxiety with depression AMA (advanced maternal age) multigravida 35+ Anemia affecting GBS (group B streptococcus) UTI complicating History of labor, current Supervision of high risk elderly multigravida in first trimester Anxiety with depression Sterilization Vaginal delivery AMA (advanced maternal age) multigravida 35+ Anemia affecting Encounter for induction of labor GBS (group B streptococcus) UTI complicating History of labor, current IUGR (intrauterine growth restriction) Supervision of high risk elderly multigravida in first trimester Chief Complaint 29 WK OB 31 WK OB 33wk ob 35 WK OB 36 WK OB 37 WK OB PLACENTA PREVIA VAGINAL DELIVERY INDUCTION VAGINAL DELIVERY VAGINAL DELIVERY SORE NIPPLES assessment 6 WK PP, declined IUD rule our dvt ENLARGED THYROID Reason for Visit Anxiety with depress ion AMA (advanced maternal age) multigravida 35+ GBS (group B streptococcus) UTI complicating History of labor, current IUGR (intrauterine growth restriction) Low lying placenta nos or without hemorrhage, third trimester Supervision of high risk elderly multigravida in first trimester Anxiety with depression AMA (advanced maternal age) multigravida 35+ Anemia affecting GBS (group B streptococcus) UTI complicating History of labor, current IUGR (intrauterine growth restriction) Low lying placenta nos or without hemorrhage, third trimester Supervision of high risk elderly multigravida in first trimester Anxiety with depression AMA (advanced maternal age) multigravida 35+ Anemia affecting GBS (group B streptococcus) UTI complicating History of labor, current IUGR (intrauterine growth restriction) Low lying placenta nos or without hemorrhage, third trimester Supervision of high risk elderly multigravida in first trimester Anxiety with depression AMA (advanced maternal age) multigravida 35+ Anemia affecting GBS (group B streptococcus) UTI complicating History of labor, current Supervision of high risk elderly multigravida in first trimester Anxiety with depression AMA (advanced maternal age) multigravida 35+ Anemia affecting GBS (group B streptococcus) UTI complicating History of labor, current Supervision of high risk elderly multigravida in first trimester Anxiety with depression AMA (advanced maternal age) multigravida 35+ Anemia affecting GBS (group B streptococcus) UTI complicating History of labor, current Supervision of high risk elderly multigravida in first trimester Anxiety with depression AMA (advanced maternal age) multigravida 35+ Anemia affecting Encounter for induction of labor GBS (group B streptococcus) UTI complicating History of labor, current IUGR (intrauterine growth restriction) Supervision of high risk elderly multigravida in first trimester nipple pain Care and examination of lactating mother Care and examination of lactating mother Leg edema Thyromegaly care and examination Chief Complaint chest pain, sob Reason for Referral Specialty Diagnoses / Procedures Referred By Neville slaughter Referred To Contact Physical Therapy Diagnoses Medial epicondylitis of elbow, right Procedures [place] OFFICE/OUTPATIENT NEW HIGH MDM 60 MINUTES Seferino Ji MD 1 [facility] [address] [place] [address] Referral ID Status Reason Start Date Expiration Date Visits Requested Visits Authorized [id number] Pending Review Eval and Treat 09/27/2023 03/25/2024 99 99 Additional Source Comments INFORMATION SOURCE (unrecogn ized section and content) DATE CREATED AUTHOR 04/27/[address] [facility] DATE CREATED AUTHOR AUTHOR'S ORGANIZ ATION 04/27/2019 [facility] DATE CREATED AUTHOR AUTHOR'S ORGANIZ ATION 07/20/2022 [facility] DATE CREATED AUTHOR AUTHOR'S ORGANIZ ATION 09/28/2023 [facility] DATE CREATED AUTHOR AUTHOR'S ORGANIZ ATION 10/05/2023 [facility] Goals (unrecognized section and content) Goals may be documented in a n alternate sectionGoals may be documented in an alternate sectionGoals may be documented in an alternate sectionGoals may be documented in an alternate sectionGoals may be documented in an alternate sectionGoals may be documented in an alternate sectionGoals may be documented in an alternate sectionGoals may be documented in an alternate sectionGoals may be documented in an alternate section Care Teams (unrecognized sec tion and content) 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 Crystal Davey MD Family Provider Active No Primary Care Physician Primary Care Provider Active Team Status: Inactive Member Role Status Dates No Primary Care Physician Primary Care Provider, Refer ring Provider Active Toshia Vera CNM Attending Provider Active Team Status: Inactive Member Role Status Dates No Primary Care Physician Primary Care Provider, Refer ring Provider Active Dr. Carolina Wei MD Attending Provider Active Team Status: Inactive Member Role Status Dates No Primary Care Physician Primary Care Provider, Refer ring Provider Active Belkys Rutherford POWER REACTOR SUPERVISOR, POWER REACTOR SUPERVISOR-C Attending Provider Active Team Status: Inactive Member Role Status Dates No Primary Care Physician Primary Care Provider, Refer ring Provider Active Dr. Wanda Garrett DO Attending Provider Activ e Team Status: Active Member Role Status Dates No Primary Care Physician Primary Care Provider Active Dr. Carolina Wei MD Admit Provid er, Attending Provider, Referring Provider, Other Provider Active Team Status: Inactive Member Role Status Dates No Primary Care Physician Primary Care Provider, Refer ring Provider Active Cassia Kumar POWER REACTOR SUPERVISOR, POWER REACTOR SUPERVISOR-C Attending Provider Active Team Status: Active Member Role Status Dates No Primary Care Physician Primary Care Provider Active Dr. Grey Grace MD Attending Provider Active Team Status: Inactive Member Role Status Dates No Primary Care Physician Primary Care Provider Active Dr. Carolina Wei MD Attending Provider Active Team Status: Inactive Member Role Status Dates No Primary Care Physician Primary Care Provider Active Dr. Carolina Wei MD Attending Provider, Referr ing Provider Active Team Status: Inactive Member Role Status Dates No Primary Care Physician Primary Care Provider Active Dr. Carolina Wei MD Admit Provid er, Attending Provider, Referring Provider Active Team Status: Active Member Role Status Dates No Primary Care Physician Primary Care Provider Active Dr. 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 Crystal Davey MD Family Provider Active Aleisha Rice POWER REACTOR SUPERVISOR, POWER REACTOR SUPERVISOR-C Primary Care Provider Activ e Team Status: Inactive Member Role Status Dates Dr. Wanda Murphy MD Emergency Provider Active Aleisha Rice POWER REACTOR SUPERVISOR, POWER REACTOR SUPERVISOR-C Primary Care Provider Activ e Reason for Visit (unrecogniz ed section and content) Reason Comments New Patient Right elbow, referre d from [facility] Specialty Diagnoses / Procedures Referred By Contact Referred To Contact Hand Surgery / Orthopedic Surgery Diagnoses Lateral epicondylitis, right elbow Procedures [place] OFFICE/OUTPATIENT NEW MODERATE MDM 45 MINUTES Hunter Reddy [address] [facility] [address] [place] [address] Seferino Ji MD [address] [place] [address] [place] [address] Referral ID Status Reason Start Date Expiration Date Visits Re quested Visits Authorized [id number] Closed 09/06/2023 03/04/2024 1 1 FOR RECORDS [...] BE BASED ON THE PRIMARY CLINICAL RECORDS. [employer] provides no warranty or guarantee of the accuracy or completeness of information in this document.
[2025-01-11] MEDS: Ketorolac 15 MG/ML Vial IV (19:30)
[2025-01-11] MEDS: 0.9% Normal Saline (1000mL) 1,000 ML 999 ML IV (19:30)
[2025-01-11 19:33] LABS: Bacteria 0 SEEN /hpf (None Seen); Mucous, Urine 0 SEEN /hpf (<or=2+)
[2025-01-11 19:35] LABS: Absolute Lymphocyte Count 1.74 X10^3/uL (0.83-4.51); Basophil# 0.02 X10^3/uL; Basophil% 0.2 % (0-1); Eosinophil# 0.04 X10^3/uL; Eosinophils% 0.4 % (0-5); Lymphocyte # 1.74 X10^3/ul (0.83-4.51); Lymphocyte % 18.6 % (19-41); Mean Corp Hgb Conc 31.7 g/dL (32-36); Mean Corpuscular Hgb 30.7 pg (27.0-32.0); Mean Corpuscular Volume 96.7 fL (81-99); Mean Platelet Vol. 8.7 fl (6.2-12.0); Monocyte# 0.49 X10^3/uL; Monocyte% 5.2 % (0-10); NRBC Flagged by Analyzer 0 % (0-5); Neutrophil # 7.04 X10^3/uL (2.7-7.7); Neutrophil % 75.4 % (47-70); Platelet Count 375 K/mm3 (150-450); RBC Distribution Width CV 13.3 % (11.6-14.6); RBC Distribution Width SD 47.7 fl (35.1-43.9); Red Blood Count 4.24 M/mm3 (4.2-5.4); White Blood Count 9.4 K/mm3 (4.4-11.0)
--- NOTE | 2025-01-11 19:42 | ED.VIS.FEGU ---
HPI <DEANNA Stapleton - Last Filed: 01/11/25 21:55> HPI - Female History of Present Illness Chief Complaint: Complaint Narrative Narrative: Patient presenting today due to dysuria, urinary frequency, and vaginal burning that has been ongoing since the beginning of December. She reports that she went to urgent care at the beginning of the month and was diagnosed with a UTI, she was started on Macrobid. Her symptoms did not subside with the Macrobid and she returned, they put her on another course of Macrobid and also fluconazole to cover for potential yeast infection. She reports that a few weeks ago she did have green tinted vaginal discharge. She denies any concerns for STDs. She reports that she has not had intercourse with her for about 2 months due to their busy schedules. She has been taking Azo with minimal relief of her pain. She reports chills that started today as well as 3 episodes of vomiting over the past 2 days. She also endorses pain to her bilateral flanks. She denies fevers, abdominal pain, and stool changes. [facility] <DEANNA Stapleton - Last Filed: 01/11/25 21:55> [facility] Medical History Vaginal delivery Sterilization IUGR (intrauterine growth restriction) Frequency of micturition Urgency of micturition Urinary tract infection Wears glasses Alcohol use Encounter for insertion of mirena IUD Anemia Restless legs Back pain Syncope Smoker Leg cramps History of edema History of COVID-19 Hypertension Chest pain Asthma Anemia affecting Anxiety Home Medications ?Medication ?Instructions ?Recorded ?Last Taken ?Type magnesium oxide 500 mg capsule 500 mg PO DAILY 01/04/22 07/26/22 20:00 History 500 mg potassium 99 mg tablet 99 mg PO DAILY 02/10/22 07/26/22 20:00 History 99 mg meloxicam 15 mg tablet 15 mg PO DAILY 09/29/23 Unknown History hydrocodone-acetaminophen 5-325mg 1 tab PO Q4H PRN PRN Pain 2 days 01/11/25 Unknown Rx 5mg-325mg #6 TABLETS Allergy/AdvReac Type Severity Reaction Status Date / Time latex Allergy Severe Hives Verified 01/11/25 18:39 coconut Allergy Mild Rash Verified 01/11/25 18:39 Sulfa (Sulfonamide Allergy Fever and Verified 01/11/25 18:39 Antibiotics) skin rash clarithromycin (From Biaxin) AdvReac Severe Vomiting Verified 01/11/25 18:39 Family History Father Diabetes Heart disease Hypertension Hyperlipidemia Surgical History History of wisdom tooth extraction, class II edentulism H/O rotator cuff surgery Hx of appendectomy Social History household members: spouse housing: house Smoking Status: Former smoker Electronic Cigarette Use: with nicotine alcohol intake: never do you feel safe at home: Yes 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 [employer] ROS <DEANNA Stapleton - Last Filed: 01/11/25 21:55> ROS ED Constitutional Constitutional ED: Reports chills; Denies fever(s) Cardiovascular Cardiovascular: Denies chest pain Respiratory/Chest Respiratory/Chest: Denies dyspnea Gastrointestinal Gastrointestinal: Reports nausea and vomiting; Denies abdominal pain Genitourinary Genitourinary ED: Reports dysuria, urinary frequency and urinary urgency Musculoskeletal Musculoskeletal: Reports back pain Integumentary Denies rash Neurologic Neurologic: Denies weakness EXAM <DEANNA Stapleton - Last Filed: 01/11/25 21:55> Physical Exam Const Vital Signs: 01/11/25 18:39 01/11/25 19:11 01/11/25 20:38 Temperature 98.3 F 98 F Temperature Source Oral Oral Pulse Rate 114 H 109 H 78 Respiratory Rate 16 18 18 Blood Pressure 144/87 H 126/89 H 107/49 L Blood Pressure Mean 106 101 68 Pulse Ox 97 98 98 Oxygen Delivery Method Room Air Room Air Positive well nourished, well developed and no apparent distress General Appearance ED: well developed HEENT Reports normocephalic and head/scalp atraumatic Mouth ED: Yes moist mucous membranes normal Eyes PERRL and EOMs intact bilaterally Neck full ROM and supple Chest Wall inspection of chest normal Resp normal respiratory effort and clear to auscultation bilaterally Cardio regular rate and regular rhythm GI soft to palpation, non-tender, non-distended and no masses Narrative: Exam performed with nurse in the room, she has normal external genitalia, no lesions. Speculum examination was performed, vaginal vault was normal in appearance, nontender cervix, negative chandelier sign, white-colored vaginal discharge with faint yellow appearance, however this may be due to the Azo she is taking as it has stained some of her skin of her external genitalia. Back/Spine no CVA tenderness, normal ROM and normal to inspection Extremity normal to inspection and full ROM Neuro oriented x3, CN's II-XII intact bilaterally, moves all extremities, no focal motor deficits and no sensory deficits noted Sensorium / Orientation: awake and alert Psych mental status grossly normal and thought process normal Skin no rashes or lesions noted and no wounds <Dr. Olman Alvarez MD - Last Filed: 01/13/25 08:10> Physical Exam Const Vital Signs: 01/11/25 18:39 01/11/25 19:11 01/11/25 20:38 Temperature 98.3 F 98 F Temperature Source Oral Oral Pulse Rate 114 H 109 H 78 Respiratory Rate 16 18 18 Blood Pressure 144/87 H 126/89 H 107/49 L Blood Pressure Mean 106 101 68 Pulse Ox 97 98 98 Oxygen Delivery Method Room Air Room Air MDM <DEANNA Stapleton - Last Filed: 01/11/25 21:55> [facility] Narrative Medical decision making narrative: Patient presenting today with dysuria, urinary frequency, and outer vaginal burning she has had since beginning of this month. She has been on 2 courses of Macrobid with no relief, she was also treated for a yeast infection with fluconazole which did not resolve her symptoms. She reports that they are getting worse, she is now having nausea and vomiting and pain to her bilateral flanks. She is nontoxic-appearing. exam performed and is unremarkable. No CVA tenderness. CBC does not reveal leukocytosis, her BMP is unremarkable. UA shows nitrites but no bacteria, this will be cultured. Patient given IV fluids, Toradol, and Zofran. Her trichomonas is negative. Gonorrhea/chlamydia is pending, however patient does not want to wait for this test and would like to be discharged. She has low suspicion for STD. She will be given a lidocaine cream for her vaginal burning. I did refer her to urology. Return instructions discussed with her and patient discharged home in stable condition. Dr. Alvarez: I have personally performed a face to face assessment of the patient and have reviewed the [facility]OLF Note. I performed a substantive portion of the visit including all aspects of the following. My trinh findings include: History is remarkable for burning with urination and without urination for approximately 2 weeks. Patient has dark reddish maroon-colored urine because she is on Azo. She reports fever and has had chills. Chills started today. She denies history of STI. She denies vaginal bleeding. She denies abnormal vaginal discharge. She is and reports monogamous relationship with her . She states she has not had intercourse with her in over 2 months. Symptoms started only a couple weeks ago. She had been seen at urgent care in [place] and treated with 2 separate course of Macrobid. She then described the burning and they placed her on Diflucan because there was concern for a yeast infection. Patient states there was no improvement after the Diflucan. Patient denies back or flank pain. Exam is remarkable for delayed capillary refill. Vitals remarkable for initially elevated blood pressure and then a low blood pressure. She initially was tachycardic. HEENT is grossly unremarkable her lungs are clear to auscultation. Heart is regular. Rate is normal. There are no murmur, gallop or rub. Abdomen is soft may be suprapubic discomfort on deep palpation. There is no true CVA tenderness noted. There is no midline back pain. Abdomen not distended or tympanitic. Medical Decision Making: With her complaint of external boot burning sensation pelvic exam was performed by the physician behavioral assistant. There was no significant abnormality there was slight discharge. Urine was sent for GC and chlamydia. Workup included CBC to assess white count differential. Urinalysis is remarkable for hematuria. This would not explain her symptoms however. Other additions or changes: [None] Lab Data Labs: Laboratory Results - last 24 hr 01/11/25 01/11/25 18:45 19:27 WBC 9.4 RBC 4.24 Hgb 13.0 Hct 41.0 MCV 96.7 MCH 30.7 MCHC 31.7 L RDW Std Deviation 47.7 H RDW Coeff of Isatu 13.3 Plt Count 375 MPV 8.7 Immature Gran % (Auto) 0.200 Neut % (Auto) 75.4 H Lymph % (Auto) 18.6 L [place] % (Auto) 5.2 Eos % (Auto) 0.4 Baso % (Auto) 0.2 Absolute Neuts (auto) 7.0 Absolute Lymphs (auto) 1.74 Nucleated RBC % 0 Sodium 137 Potassium 4.3 Chloride 101 Carbon Dioxide 23.7 Anion Gap 12 BUN 20 H Creatinine 0.85 Estim Creat Clear Calc 106.82 Est GFR (MDRD) Non-Af 90 BUN/Creatinine Ratio 23.8 H Glucose 105 H Calcium 9.3 Urine Color Red Urine Clarity Turbid Urine pH 5.0 Ur Specific [place] 1.025 Urine Protein 100 H Urine Glucose (UA) Normal Urine Ketones Negative Urine Occult Blood 10 H Urine Nitrite Positive H Urine Bilirubin 6 H Urine Urobilinogen 1 H Ur Leukocyte Esterase Negative Urine RBC > 100 SEEN Urine WBC 0-5 SEEN Ur Squamous Epith Cells 0-5 SEEN Urine Bacteria 0 SEEN Urine Mucus 0 SEEN Urine Test Negative Chlamydia DNA (OSMAN) Cancelled N.gonorrhoeae DNA (OSMAN) Cancelled <Dr. Olman Alvarez MD - Last Filed: 01/13/25 08:10> [facility] MDM Narrative Medical decision making narrative: Patient presenting today with dysuria, urinary frequency, and outer vaginal burning she has had since beginning of this month. She has been on 2 courses of Macrobid with no relief, she was also treated for a yeast infection with fluconazole which did not resolve her symptoms. She reports that they are getting worse, she is now having nausea and vomiting and pain to her bilateral flanks. She is nontoxic-appearing. CBC does not reveal leukocytosis, her BMP is unremarkable. Patient given IV fluids, Toradol, and Zofran. Dr. Alvarez: I have personally performed a face to face assessment of the patient and have reviewed the WOLF Note. I performed a substantive portion of the visit including all aspects of the following. My trinh findings include: History is remarkable for burning with urination and without urination for approximately 2 weeks. Patient has dark reddish maroon-colored urine because she is on Azo. She reports fever and has had chills. Chills started today. She denies history of STI. She denies vaginal bleeding. She denies abnormal vaginal discharge. She is and reports monogamous relationship with her . She states she has not had intercourse with her in over 2 months. Symptoms started only a couple weeks ago. She had been seen at urgent care in [place] and treated with 2 separate course of Macrobid. She then described the burning and they placed her on Diflucan because there was concern for a yeast infection. Patient states there was no improvement after the Diflucan. Patient denies back or flank pain. Exam is remarkable for delayed capillary refill. Vitals remarkable for initially elevated blood pressure and then a low blood pressure. She initially was tachycardic. HEENT is grossly unremarkable her lungs are clear to auscultation. Heart is regular. Rate is normal. There are no murmur, gallop or rub. Abdomen is soft may be suprapubic discomfort on deep palpation. There is no true CVA tenderness noted. There is no midline back pain. Abdomen not distended or tympanitic. Medical Decision Making: With her complaint of external boot burning sensation pelvic exam was performed by the physician behavioral assistant. There was no significant abnormality there was slight discharge. Urine was sent for GC and chlamydia. Workup included CBC to assess white count differential. Urinalysis is remarkable for hematuria. This would not explain her symptoms however. Other additions or changes: [None] Lab Data Attestation: I reviewed the patient's lab results. Lab results narrative: CBC is unremarkable. BMP reveals slight elevation of BUN to creatinine ratio. Urine is red because she is on Azo. Patient has greater than 100 RBCs on microscopic with 0-5 WBCs 0-5 epithelial cells and no bacteria. Labs: Laboratory Results - last 24 hr 01/11/25 01/11/25 18:45 19:27 WBC 9.4 RBC 4.24 Hgb 13.0 Hct 41.0 MCV 96.7 MCH 30.7 MCHC 31.7 L RDW Std Deviation 47.7 H RDW Coeff of Isatu 13.3 Plt Count 375 MPV 8.7 Immature Gran % (Auto) 0.200 Neut % (Auto) 75.4 H Lymph % (Auto) 18.6 L [place] % (Auto) 5.2 Eos % (Auto) 0.4 Baso % (Auto) 0.2 Absolute Neuts (auto) 7.0 Absolute Lymphs (auto) 1.74 Nucleated RBC % 0 Sodium 137 Potassium 4.3 Chloride 101 Carbon Dioxide 23.7 Anion Gap 12 BUN 20 H Creatinine 0.85 Estim Creat Clear Calc 106.82 Est GFR (MDRD) Non-Af 90 BUN/Creatinine Ratio 23.8 H Glucose 105 H Calcium 9.3 Urine Color Red Urine Clarity Turbid Urine pH 5.0 Ur Specific [place] 1.025 Urine Protein 100 H Urine Glucose (UA) Normal Urine Ketones Negative Urine Occult Blood 10 H Urine Nitrite Positive H Urine Bilirubin 6 H Urine Urobilinogen 1 H Ur Leukocyte Esterase Negative Urine RBC > 100 SEEN Urine WBC 0-5 SEEN Ur Squamous Epith Cells 0-5 SEEN Urine Bacteria 0 SEEN Urine Mucus 0 SEEN Urine Test Negative Chlamydia DNA ([facility]MAN) Cancelled N.gonorrhoeae DNA ([facility]MAN) Cancelled Discharge Plan Triage Chief Complaint: Complaint ED Midlevel Provider: Carmel Sandoval ED Provider: Olman Alvarez Dx/Rx/DC Orders Clinical Impression: Vaginal pain, Hematuria, Dysuria Instructions: ED Dysuria, Uncertain Cause (Adult), ED Hematuria Prescriptions: New hydrocodone-acetaminophen 5-325 mg tablet 1 tab PO Q4H PRN PRN (Reason: Pain) 2 Days Qty: 6 0RF No Action magnesium oxide 500 mg capsule 500 mg PO DAILY potassium 99 mg Tablet 99 mg PO DAILY meloxicam 15 mg tablet 15 mg PO DAILY Primary Care Provider: Aleisha Rice NP Referrals: Stephanie Somers MD [Med Staff - Active Staff] - 3-5 Days Aleisha Rice NP, [employer] [Primary Care Provider] - Activity Restrictions/Additional Instructions: Please follow-up with urology and return for any worsening symptoms or other concerns. You can use the ointment 4 times daily as needed. Print Language: Kazakh Disposition Disposition: Home, Self Care Discharge Date/Time: 01/11/25 21:58
[2025-01-11 19:47] LABS: Color, Urine Red (Yellow); Glucose, Dipstick Normal (Normal); Ketone-Dipstick Negative (Negative); Leukocyte Esterase-Dipstick Negative /ul (Negative); Nitrite-Dipstick Positive (Negative); Occult Blood-Urine 10 /ul (Negative); Protein-Dipstick 100 mg/dl (Negative); Specific Gravity, Urine 1.025 (1.002-1.030); Urine Clarity Turbid (Clear); Urine Urobilinogen 1 mg/dl (Normal)
[2025-01-11 19:51] LABS: Urine Bilirubin Dipstick 6 mg/dL (Negative)
[2025-01-11 19:52] LABS: Anion Gap 12 (5-15); BUN 20 mg/dL (4-19); BUN/Creat Ratio 23.8 RATIO (10-20); Calcium,Total 9.3 mg/dL (7.6-11.0); Carbon Dioxide 23.7 mmol/L (21.0-32.0); Chloride 101 mmol/L (98-108); Creatinine, Serum 0.85 mg/dL (0.70-1.20); EST Glomerular Filtration Rate 90 (>60); Estimated Creatinine Clearance 106.82 ml/min (50-250); Glucose 105 mg/dL (70-99); Potassium 4.3 mmol/L (3.3-5.1); Sodium Level 137 mmol/L (133-145)
[2025-01-11] MEDS: Ondansetron 4 MG/2 ML Vial IV (20:03)
[2025-01-11 20:35] LABS: Red Blood Cells-Urine > 100 SEEN /hpf (0-5); Squamous Epithelial Cells - UA 0-5 SEEN /hpf (5-10); White Blood Cells 0-5 SEEN /hpf (0-5)
[2025-01-11 20:38] VITALS: BP 107/49; PULSE 78; RESP 18; O2SAT 98
[2025-01-11 21:42] LABS: Internal QC Validated? YES +Cl - CLEAR BKGD; Pregnancy, Urine Negative Negative; Record Kit Lot#,Urine Preg 947241
[2025-01-11] MEDS: Lidocaine 5% 35GM Tube 1 APPLIC TOPICAL (21:54)
[2025-01-11 21:57] VITALS: BP 107/49; PULSE 78; RESP 18; TEMP 36.8; O2SAT 98
== END 2025-01-11 21:58 | disposition home or self-care (01) ==
PROVIDERS: Physician Assistant; Emergency Provider Emergency Medicine; PCP Registered Nurse; Visit Provider Emergency Medicine
DX: R31.9 Hematuria, unspecified (principal); R30.0 Dysuria; R10.2 Pelvic and perineal pain; I10 Essential (primary) hypertension; R35.0 Frequency of micturition; Z87.891 Personal history of nicotine dependence; Z90.49 Acquired absence of other specified parts of digestive tract; R11.2 Nausea with vomiting, unspecified
CPT/HCPCS: 96361; 96374; 96375; 80048; 81001; 81025; 85025; 87086; 87210; 87491; 87591; 99282; A4216; J2405

== ENCOUNTER 2025-01-21 09:09 | Day surgery (SDC) | payer BC, SELFPAY ==
[2025-01-21] VITALS (10 sets, daily range): BP systolic 112–129; BP diastolic 58–90; PULSE 71–96; RESP 16–18; TEMP 36.1–36.6; O2SAT 95–100; BMI 24.7
[2025-01-21] MEDS: Lactated Ringers 1,000 ML 15 ML IV (10:05)
[2025-01-21] MEDS: Cefazolin 2 GM in 0.9% Normal Saline (100mL Bag) 100 ML IV (11:36)
[2025-01-21] MEDS: Lidocaine 1% (50 ml mdv) 50 ML Vial OPERA.SITE (11:55)
[2025-01-21] MEDS: Dimethyl Sulfoxide 50 ML Solution TOPICAL (11:55)
[2025-01-21] MEDS: Heparin Injection (Vial) 5,000 UNIT/ML VIAL 10000 UNIT IRRIGATION (11:55)
== END 2025-01-21 14:40 | disposition home or self-care (01) ==
LOC: SDC 09:10 → AC 09:12
PROVIDERS: PCP Registered Nurse; Referring Provider Urology; Visit Provider Urology
PROC: 0T7B7ZZ Dilation of Bladder, Via Natural or Artificial Opening (ICD-10-PCS; CPT 52260; principal; 2025-01-21 11:20)
DX: N30.10 Interstitial cystitis (chronic) without hematuria (principal); Z86.16 Personal history of COVID-19; Z87.891 Personal history of nicotine dependence
CPT/HCPCS: 52260; 00910; J1212; J2405